=== PATIENT | male | born 1935 | race Caucasian/White ===

== ENCOUNTER 2016-10-31 05:35 | Outpatient (CLI) | payer MEDICARE ==
[~2016-10-31] VITALS: Ht 170.2 cm; Wt 72.7 kg
[~2016-10-31 05:35] MED LIST: ALBU8.5H4 IH; ALPR.5T PO; AMLO10TA82 PO; CEFD300C3 PO; CITA40TA11 PO; CITA40TA19 PO; CTLP20T; HYDR-700 PO; LATA2.5D5 OU; LEVO500T69 PO; LISI40TA PO; METO-270 PO; MNTL10T PO; PANT40TA2 PO; PANT40TA3 PO; PRM25T PO; SERT50TA9 PO; SIMV20TA3 PO; SUCR1TAB36 PO; TEMA30CA PO; TIMO1DRO4 OU; TIMO5DRO5 OU; TMSL.4C PO; alprazolam; benicar; claritin; norvasc
== END 2016-10-31 14:54 ==
LOC: PREOP 05:35
PROVIDERS: ATTEND Surgery
DX: Z01.818 Encounter for other preprocedural examination (principal); D50.0 Iron deficiency anemia secondary to blood loss (chronic); Z86.010 Personal history of colon polyps

== ENCOUNTER → 2016-11-01 | Outpatient (CLI) | payer MEDICARE ==
[~2016-11-01] MED LIST changes: +CATHETER FLUSH 10 ML SYR IV PRN; +IOHEXOL 350 MG/ML 100 ML (OMNIPAQUE 350) VIAL IV ONE; +NS 100 ML (IVPB) BAG IV ONE
== END ==
DX: K57.30 Diverticulosis of large intestine without perforation or abscess without bleeding (principal); J90 Pleural effusion, not elsewhere classified; K44.9 Diaphragmatic hernia without obstruction or gangrene; K42.9 Umbilical hernia without obstruction or gangrene; Z86.39 Personal history of other endocrine, nutritional and metabolic disease; Z86.010 Personal history of colon polyps

== ENCOUNTER 2016-11-05 09:57 | Day surgery (SDC) | payer MEDICARE ==
[~2016-11-05] VITALS: Ht 170.2 cm; Wt 72.7 kg
[~2016-11-05 09:57] MED LIST changes: -CATHETER FLUSH 10 ML SYR IV PRN; -IOHEXOL 350 MG/ML 100 ML (OMNIPAQUE 350) VIAL IV ONE; -NS 100 ML (IVPB) BAG IV ONE
[2016-11-05] MEDS ORDERED: NALOXONE 0.4 MG/ML 1 ML (NARCAN) VIAL IVP PRN (10:15)
[2016-11-05] MEDS ORDERED: NS IV 500 ML 500 ML IV SCH (10:15)
[2016-11-05] MEDS ORDERED: NS IV 500 ML 500 ML ONE (10:15)
[2016-11-05] MEDS ORDERED: FLUMAZENIL (ROMAZICON) 0.1 MG/ML 5 ML VIAL INJ PRN (10:15)
[2016-11-05 10:43] VITALS: BP 118/77
[2016-11-05] MEDS ORDERED: MIDAZOLAM 2 MG/2 ML (VERSED) VIAL ONE ×3 (12:00)
[2016-11-05] MEDS ORDERED: fentaNYL INJECTION 100 MCG/2 ML AMP ONE (12:00)
[2016-11-05] MEDS: fentaNYL INJECTION 100 MCG/2 ML AMP IVP PRN ×2 (12:15→12:18)
[2016-11-05] MEDS: MIDAZOLAM 2 MG/2 ML (VERSED) VIAL IVP PRN ×2 (12:16→12:19)
--- NOTE | 2016-11-05 12:35 | Conscious Sedation/ASA ---
Conscious Sedation Pre-Proced Time Reviewed: 11:45 ASA Class: 2 Airway Mallampati Classification: ([place] appropriate class) I. II. III, IV Lungs Heart ASA score ASA 1: a normal healthy patient ASA 2: a patient with a mild systemic disease (mid diabetes, controlled hypertension, obesity ASA 3: a patient with a severe systemic disease that limits activity (angina , COPD, prior Myocardial infarction) ASA 4: a patient with an incapacitating disease that is a constant threat to life (CHF, renal failure) ASA 5: a moribund patient not expected to survive 24 hrs. (ruptured aneurysm) ASA 6: a declared brain patient whose organs are being harvested. For emergent operations, add the letter E after the classification Grade 1 Sedation Plan: Discussed options with patient/fam Note The patient is an appropriate candidate to undergo the planned procedure, sedation, and anesthesia. The patient immediately re-assessed prior to indication. MARCOS MUNOZ MD Nov 05, 2016 12:35 pm
--- NOTE | 2016-11-05 12:35 | Endoscopy Procedure Report ---
Endoscopy Report Date: Nov 05, 2016 Preoperative Diagnosis: chronic GI blood loss. Personal history of polyps Study Performed: Colonoscopy Procedure Instrument: Colonoscope Endo Procedure/Findings Findings 1.: Polyp, Diverticulosis Recommendations: Recommendations: 1.: Colonoscopy in 1 year Copy Copies To 1: IRENE BEATTY MD, XAVIER M MD Nov 05, 2016 12:35 pm
--- NOTE | 2016-11-05 12:36 | Discharge Inst-Simple/Standard ---
Discharge Inst-Standard Discharge Medications New, Converted or Re-Newed RX: Other Patient Instructions/Follow Up Plan of Care/Instructions/FU: follow-up with his primary to have hemoglobin checked in 2 weeks. Repeat colonoscopy in one year Activity as Tolerated: Yes Discharge Diet: No Restrictions MARCOS MUNOZ MD Nov 05, 2016 12:36 pm
[2016-11-05 12:55] VITALS: BP 117/64
[2016-11-05 13:25] VITALS: BP 125/77
[2016-11-05 13:30] VITALS: BP 125/77
--- OUTSIDE RECORDS SUMMARY | 2016-11-05 23:03 | XMS REPORT | Continuity of Care Document ---
Author Author [facility] Organization [facility] Address Unknown Phone Unavailable Allergies Active Description Code Type Severity Reaction Onset Reported/Identified Relationship to Patient Clinical Status Yes amlodipine [id number] Drug Allergy Mild tongue swelling 06/30/2009 Yes benazepril [id number] Drug Allergy Mild tongue swelling 06/30/2009 Yes benazepril [id number] Drug Allergy Mild N/A 10/28/2016 Yes amlodipine [id number] Drug Allergy Moderate TONGUE SWELLING 10/31/2016 Medications Problems Date Dx Coded Attending Type Code Diagnosis Diagnosed By 05/25/2013 ALEXANDER ERNANDEZ, MARCOS Culp Ot 562.10 DIVERTICULOSIS COLON (W/O MENT OF HEMORR 05/25/2013 MARCOS MUNOZ MD Ot 792.1 ABN FIND-STOOL CONTENTS 01/04/2016 MARCOS MUNOZ MD Ot K21.9 GASTRO-ESOPHAGEAL REFLUX DISEASE WITHOUT 01/04/2016 MARCOS MUNOZ MD Ot K92.0 HEMATEMESIS 01/04/2016 MARCOS MUNOZ MD Ot R19.5 OTHER FECAL ABNORMALITIES 01/04/2016 MARCOS MUNOZ MD Ot Z01.818 ENCOUNTER FOR OTHER PREPROCEDURAL EXAMIN 01/05/2016 MARCOS MUNOZ MD Ot K25.9 GASTRIC ULCER, UNSP ACUTE OR CHRONIC, 01/05/2016 MARCOS MUNOZ MD Ot K26.7 CHRONIC 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 01/05/2016 MARCOS MUNOZ MD Ot K44.9 DIAPHRAGMATIC HERNIA WITHOUT OBSTRUCTION 01/05/2016 MARCOS MUNOZ MD Ot K57.30 DVRTCLOS OF LG INT W/O PERFORATION OR AB 01/05/2016 MARCOS MUNOZ MD Ot K63.5 POLYP OF COLON 01/05/2016 MARCOS UMNOZ MD Ot K92.0 HEMATEMESIS 01/20/2016 MARCOS MUNOZ MD Ot K25.9 GASTRIC ULCER, UNSP ACUTE OR CHRONIC, 01/20/2016 ALEXANDER ERNANDEZ, MARCOS Culp Ot K26.7 CHRONIC 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 01/20/2016 ALEXANDER ERNANDEZ, MARCOS Culp Ot K44.9 DIAPHRAGMATIC HERNIA WITHOUT OBSTRUCTION 01/20/2016 ALEXANDER ERNANDEZ, MARCOS Culp Ot K57.30 DVRTCLOS OF LG INT W/O PERFORATION OR AB 01/20/2016 ALEXANDER ERNANDEZ, MARCOS Culp Ot K63.5 POLYP OF COLON 01/20/2016 ALEXANDER ERNANDEZ, MARCOS Culp Ot K92.0 HEMATEMESIS 01/27/2016 BARTOLO HUFF [employer]C PAD [employer]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 Ot D64.9 ANEMIA, UNSPECIFIED 02/01/2016 BARTOLO HUFF 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 Ot D64.9 ANEMIA, UNSPECIFIED 02/08/2016 Ot 786.50 CHEST PAIN NOS 02/08/2016 JACI ERNANDEZ, IRENE Downing Ot 285.9 ANEMIA NOS 02/08/2016 ALEXANDER ERNANDEZ, MARCOS Culp Ot V72.84 EXAM PRE-OPERATIVE NOS 02/08/2016 BARTOLO HUFF 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 Ot D64.9 ANEMIA, UNSPECIFIED 02/25/2016 Ot 786.50 CHEST PAIN NOS 02/25/2016 JACI ERNANDEZ, IRENE Downing Ot 285.9 ANEMIA NOS 02/25/2016 ALEXANDER ERNANDEZ, MARCOS M Ot V72.84 EXAM PRE-OPERATIVE NOS 02/25/2016 BARTOLO [employer]FF 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 Ot D64.9 ANEMIA, UNSPECIFIED 02/25/2016 JACI ERNANDEZ, IRENE Downing Ot E87.1 HYPO-OSMOLALITY AND HYPONATREMIA 02/27/2016 FELISA ERNANDEZ, HOLLEY Downing Ot E87.1 HYPO-OSMOLALITY AND HYPONATREMIA 02/27/2016 FELISA ERNANDEZ, HOLLEY Downing Ot F32.9 MAJOR DEPRESSIVE DISORDER, SINGLE EPISOD 02/27/2016 HOLLEY ROBERTO MD Ot F41.9 ANXIETY DISORDER, UNSPECIFIED 02/27/2016 HOLLEY ROBERTO MD Ot I10 ESSENTIAL (PRIMARY) HYPERTENSION 02/27/2016 HOLLEY ROBERTO MD Ot J18.9 PNEUMONIA, UNSPECIFIED ORGANISM 02/27/2016 HOLLEY ROBERTO MD Ot K21.9 GASTRO-ESOPHAGEAL REFLUX DISEASE WITHOUT 02/27/2016 FELISA ERNANDEZ, HOLLEY Downing Ot 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 02/27/2016 FELISA ERNANDEZ, HOLLEY Downing Ot Z87.891 PERSONAL HISTORY OF NICOTINE DEPENDENCE 03/01/2016 JACI ERNANDEZ, IRENE Downing Ot E87.1 HYPO-OSMOLALITY AND HYPONATREMIA 03/08/2016 JACI ERNANDEZ, IRENE Downing Ot E87.1 HYPO-OSMOLALITY AND HYPONATREMIA 05/08/2016 Ot 786.50 CHEST PAIN NOS 05/08/2016 JACI ERNANDEZ, IRENE Downing Ot 285.9 ANEMIA NOS 05/08/2016 ALEXANDER ERNANDEZ, MARCOS M Ot V72.84 EXAM PRE-OPERATIVE NOS 05/08/2016 BARTOLO HUFF N DISC PAD KN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 Ot D64.9 ANEMIA, UNSPECIFIED 05/08/2016 JACI ERNANDEZ, IRENE Downing Ot E87.1 HYPO-OSMOLALITY AND HYPONATREMIA 05/09/2016 Ot 786.50 CHEST PAIN NOS 05/09/2016 JACI ERNANDEZ, IRENE Downing Ot 285.9 ANEMIA NOS 05/09/2016 ALEXANDER ERNANDEZ, MARCOS M Ot V72.84 EXAM PRE-OPERATIVE NOS 05/09/2016 BARTOLO HUFF N DISC PAD KN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 Ot D64.9 ANEMIA, UNSPECIFIED 05/09/2016 JACI ERNANDEZ, IRENE Downing Ot E87.1 HYPO-OSMOLALITY AND HYPONATREMIA 05/09/2016 GERMANIA VIGIL MD Ot I10 ESSENTIAL (PRIMARY) HYPERTENSION 05/09/2016 GERMANIA VIGIL MD Ot S00.83XA CONTUSION OF OTHER PART OF HEAD, INITIAL 05/09/2016 GERMANIA VIGIL MD Ot S09.90XA UNSPECIFIED INJURY OF HEAD, INITIAL ENCO 05/09/2016 GERMANIA VIGIL MD Ot S51.011A LACERATION WITHOUT FOREIGN BODY OF RIGHT 05/09/2016 GERMANIA VIGIL MD Ot S51.812A LACERATION WITHOUT FOREIGN BODY OF LEFT 05/09/2016 GERMANIA VIGIL MD Ot W01.0XXA FALL SAME LEV FROM SLIP/TRIP W/O STRIKE 05/09/2016 GERMANIA VIGIL MD Ot Y92.012 BATHROOM OF SINGLE-FAMILY (PRIVATE ) HOUS 05/09/2016 GERMANIA VIGIL MD Ot Y99.8 OTHER EXTERNAL CAUSE STATUS 05/09/2016 GERMANIA VIGIL MD Ot 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 05/09/2016 GERMANIA VIGIL MD Ot Z87.891 PERSONAL HISTORY OF NICOTINE DEPENDENCE 05/09/2016 GERMANIA VIGIL MD Ot I10 ESSENTIAL (PRIMARY) HYPERTENSION 05/09/2016 GERMANIA VIGIL MD Ot S00.83XA CONTUSION OF OTHER PART OF HEAD, INITIAL 05/09/2016 GERMANIA VIGIL MD Ot S09.90XA UNSPECIFIED INJURY OF HEAD, INITIAL ENCO 05/09/2016 GERMANIA VIGIL MD Ot S51.011A LACERATION WITHOUT FOREIGN BODY OF RIGHT 05/09/2016 GERMANIA VIGIL MD Ot S51.812A LACERATION WITHOUT FOREIGN BODY OF LEFT 05/09/2016 GERMANIA VIGIL MD Ot W01.0XXA FALL SAME LEV FROM SLIP/TRIP W/O STRIKE 05/09/2016 GERMANIA VIGIL MD Ot Y92.012 BATHROOM OF SINGLE-FAMILY (PRIVATE ) HOUS 05/09/2016 GERMANIA VIGIL MD Ot Y99.8 OTHER EXTERNAL CAUSE STATUS 05/09/2016 GERMANIA VIGIL MD Ot Z79.899 OTHER [facility] (CURRENT) DRUG THERAPY 05/09/2016 GERMANIA VIGIL MD Ot Z87.891 PERSONAL HISTORY OF NICOTINE DEPENDENCE 10/29/2016 MARLEEN CARBONE DO Ot D50.0 IRON DEFICIENCY ANEMIA SECONDARY TO BLOO 10/29/2016 [employer] MARLEEN Ot E78.00 PURE HYPERCHOLESTEROLEMIA, UNSPECIFIED 10/29/2016 [employer] MARLEEN Ot E78.5 HYPERLIPIDEMIA, UNSPECIFIED 10/29/2016 [employer] MARLEEN Ot E87.2 ACIDOSIS 10/29/2016 [employer] MARLEEN Ot F41.9 ANXIETY DISORDER, UNSPECIFIED 10/29/2016 [employer] FREEMAN MARLEEN Ot I10 ESSENTIAL (PRIMARY) HYPERTENSION 10/29/2016 MARLEEN CARBONE DO Ot I25.9 CHRONIC ISCHEMIC HEART DISEASE, UNSPECIF 10/29/2016 ROLAND CARBONE DOI Ot I49.3 VENTRICULAR PREMATURE DEPOLARIZATION 10/29/2016 ROLAND CARBONE DOI Ot K21.9 GASTRO-ESOPHAGEAL REFLUX DISEASE WITHOUT 10/29/2016 ROLAND CARBONE DOI Ot K26.7 CHRONIC 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 10/29/2016 RAF FREEMANMARLEEN Ot K44.9 DIAPHRAGMATIC HERNIA WITHOUT OBSTRUCTION 10/29/2016 MARLEEN CARBONE DO Ot M19.90 UNSPECIFIED OSTEOARTHRITIS, UNSPECIFIED 10/29/2016 CARBONEMARLEEN GOFF DO Ot N40.0 BENIGN PROSTATIC HYPERPLASIA WITHOUT LOW 10/29/2016 MARLEEN CARBONE DO Ot R01.1 CARDIAC MURMUR, UNSPECIFIED 10/29/2016 MARLEEN CARBONE DO Ot Z87.891 PERSONAL HISTORY OF NICOTINE DEPENDENCE 11/02/2016 ALEXANDER ERNANDEZ, MARCOS Culp Ot J90 PLEURAL EFFUSION, NOT ELSEWHERE CLASSIFI 11/02/2016 ALEXANDER ERNANDEZ, MARCOS Culp Ot K42.9 UMBILICAL HERNIA WITHOUT OBSTRUCTION OR 11/02/2016 MARCOS MUNOZ MD, Ot K44.9 DIAPHRAGMATIC HERNIA WITHOUT OBSTRUCTION 11/02/2016 ALEXANDER ERNANDEZ, MARCOS Culp Ot K57.30 DVRTCLOS OF LG INT W/O PERFORATION OR AB 11/02/2016 ALEXANDER ERNANDEZ, MARCOS Culp Ot Z86.010 PERSONAL HISTORY OF COLONIC POLYPS 11/02/2016 MARCOS MUNOZ MD, Ot Z86.39 PERSONAL HISTORY OF ENDO, NUTRITIONAL AN Procedures Code Description Performed By Performed On [id number] EXCISION OF STOMACH, PYLORUS, ENDO, DIAG 10/29/2016 Results Test Result Range RED CELLS LEUKO REDUCED AS1 - 01/03/16 15:34 RED CELLS LEUKO REDUCED AS1 TRANSFUSED 1941 [facility] Blood type T Indirect antibody screen panel - 01/03/16 15:34 ABO+Rh group AP NR Transfusion band number [id number] [facility] Blood group antibody screen NEGATIVE [facility] Complete blood count (CBC) with automated white blood cell (WBC) differential - 02/25/16 12:45 Blood leukocytes automated count (number/volume) 16.0 10*3/ uL 4.3-11.0 Blood erythrocytes automated count (number/volume) 3.29 10*6 /uL 4.35-5.85 Venous blood hemoglobin measurement (mass/volume) 10.3 g/dL 13.3-17.7 Blood hematocrit (volume fraction) 30 % 40-54 Automated erythrocyte mean corpuscular volume 92 [foz_us] 80-99 Automated erythrocyte mean corpuscular hemoglobin (mass per erythrocyte) 31 pg 25-34 Automated erythrocyte mean corpuscular hemoglobin concentration measurement ( mass/volume) 34 g/dL 32-36 Automated erythrocyte distribution width ratio 14.0 % 10.0-14.5 Automated blood platelet count (count/volume) 213 10*3/uL 130-400 Automated blood platelet mean volume measurement 11.7 [foz_ us] 7.4-10.4 Automated blood neutrophils/100 leukocytes 93 % 42-75 Automated blood lymphocytes/100 leukocytes 3 % 12-44 Blood monocytes/100 leukocytes 4 % 0-12 Automated blood eosinophils/100 leukocytes 0 % 0-10 Automated blood basophils/100 leukocytes 0 % 0-10 Blood neutrophils automated count (number/volume) 14.8 10*3 1.8-7.8 Blood lymphocytes automated count (number/volume) 0.5 10*3 1.0-4.0 Blood monocytes automated count (number/volume) 0.7 10*3 0.0-1.0 Automated eosinophil count 0.0 10*3/uL 0.0-0.3 Automated blood basophil count (count/volume) 0.0 10*3/uL 0.0-0.1 Comprehensive metabolic panel - 02/25/16 12:45 Serum or plasma sodium measurement (moles/volume) 128 mmol/ L 135-145 Serum or plasma potassium measurement (moles/volume) 4.3 mmol/L 3.6-5.0 Serum or plasma chloride measurement (moles/volume) 102 mmol /L 98-107 Carbon dioxide 19 mmol/L 21-32 Serum or plasma anion gap determination (moles/volume) 7 mmol/L 5-14 Serum or plasma urea nitrogen measurement (mass/volume) 25 mg/dL 7-18 Serum or plasma creatinine measurement (mass/volume) 1.20 mg /dL 0.60-1.30 Serum or plasma urea nitrogen/creatinine mass ratio 21 NRG Serum or plasma creatinine measurement with calculation of estimated glomerular filtration rate 58 NRG Serum or plasma glucose measurement (mass/volume) 90 mg/dL 70-105 Serum or plasma calcium measurement (mass/volume) 8.6 mg/dL 8.5-10.1 Serum or plasma total bilirubin measurement (mass/volume) 0.5 mg/dL 0.1-1.0 Serum or plasma alkaline phosphatase measurement (enzymatic activity/volume) 81 U/L 40-136 Serum or plasma aspartate aminotransferase measurement (enzymatic activity/ volume) 35 U/L 5-34 Serum or plasma alanine aminotransferase measurement (enzymatic activity/volume ) 41 U/L 0-55 Serum or plasma protein measurement (mass/volume) 6.1 g/dL 6.4-8.2 Serum or plasma albumin measurement (mass/volume) 3.5 g/dL 3.2-4.5 Blood manual differential performed detection - 02/25/16 12:45 Blood monocytes/100 leukocytes 5 % NRG Manual blood segmented neutrophils/100 leukocytes 87 % NRG Blood band neutrophils/100 leukocytes 6 % NRG Manual blood lymphocytes/100 leukocytes 2 % NRG Manual eosinophils/100 leukocytes in nose 0 % NRG Manual blood basophils/100 leukocytes 0 % NRG Blood erythrocyte morphology finding identification NORMAL NRG Serum or plasma troponin i.cardiac measurement (mass/volume) - 02/25/16 12:45 Serum or plasma troponin i.cardiac measurement (mass/volume) < ng/mL <0.30 Blood lactic acid measurement (moles/volume) - 02/25/16 14:10 Blood lactic acid measurement (moles/volume) 1.9 mmol/L 0.5-2.0 Bacterial blood culture - 02/25/16 14:10 Bacterial blood culture NG NRG Bacterial blood culture - 02/25/16 14:24 Bacterial blood culture NG NRG Complete blood count (CBC) with automated white blood cell (WBC) differential - 02/26/16 04:30 Blood leukocytes automated count (number/volume) 16.3 10*3/ uL 4.3-11.0 Blood erythrocytes automated count (number/volume) 3.12 10*6 /uL 4.35-5.85 Venous blood hemoglobin measurement (mass/volume) 9.7 g/dL 13.3-17.7 Blood hematocrit (volume fraction) 29 % 40-54 Automated erythrocyte mean corpuscular volume 93 [foz_us] 80-99 Automated erythrocyte mean corpuscular hemoglobin (mass per erythrocyte) 31 pg 25-34 Automated erythrocyte mean corpuscular hemoglobin concentration measurement ( mass/volume) 33 g/dL 32-36 Automated erythrocyte distribution width ratio 14.5 % 10.0-14.5 Automated blood platelet count (count/volume) 189 10*3/uL 130-400 Automated blood platelet mean volume measurement 11.9 [foz_ us] 7.4-10.4 Automated blood neutrophils/100 leukocytes 91 % 42-75 Automated blood lymphocytes/100 leukocytes 4 % 12-44 Blood monocytes/100 leukocytes 5 % 0-12 Automated blood eosinophils/100 leukocytes 0 % 0-10 Automated blood basophils/100 leukocytes 0 % 0-10 Blood neutrophils automated count (number/volume) 14.8 10*3 1.8-7.8 Blood lymphocytes automated count (number/volume) 0.7 10*3 1.0-4.0 Blood monocytes automated count (number/volume) 0.8 10*3 0.0-1.0 Automated eosinophil count 0.0 10*3/uL 0.0-0.3 Automated blood basophil count (count/volume) 0.0 10*3/uL 0.0-0.1 Complete blood count (CBC) with automated white blood cell (WBC) differential - 02/27/16 05:00 Blood leukocytes automated count (number/volume) 8.5 10*3/ uL 4.3-11.0 Blood erythrocytes automated count (number/volume) 2.99 10*6 /uL 4.35-5.85 Venous blood hemoglobin measurement (mass/volume) 9.2 g/dL 13.3-17.7 Blood hematocrit (volume fraction) 28 % 40-54 Automated erythrocyte mean corpuscular volume 94 [foz_us] 80-99 Automated erythrocyte mean corpuscular hemoglobin (mass per erythrocyte) 31 pg 25-34 Automated erythrocyte mean corpuscular hemoglobin concentration measurement ( mass/volume) 33 g/dL 32-36 Automated erythrocyte distribution width ratio 14.8 % 10.0-14.5 Automated blood platelet count (count/volume) 171 10*3/uL 130-400 Automated blood platelet mean volume measurement 11.7 [foz_ us] 7.4-10.4 Automated blood neutrophils/100 leukocytes 88 % 42-75 Automated blood lymphocytes/100 leukocytes 6 % 12-44 Blood monocytes/100 leukocytes 5 % 0-12 Automated blood eosinophils/100 leukocytes 1 % 0-10 Automated blood basophils/100 leukocytes 0 % 0-10 Blood neutrophils automated count (number/volume) 7.5 10*3 1.8-7.8 Blood lymphocytes automated count (number/volume) 0.5 10*3 1.0-4.0 Blood monocytes automated count (number/volume) 0.4 10*3 0.0-1.0 Automated eosinophil count 0.1 10*3/uL 0.0-0.3 Automated blood basophil count (count/volume) 0.0 10*3/uL 0.0-0.1 Whole blood basic metabolic panel - 02/27/16 05:00 Serum or plasma sodium measurement (moles/volume) 135 mmol/ L 135-145 Serum or plasma potassium measurement (moles/volume) 4.3 mmol/L 3.6-5.0 Serum or plasma chloride measurement (moles/volume) 110 mmol /L 98-107 Carbon dioxide 19 mmol/L 21-32 Serum or plasma anion gap determination (moles/volume) 6 mmol/L 5-14 Serum or plasma urea nitrogen measurement (mass/volume) 15 mg/dL 7-18 Serum or plasma creatinine measurement (mass/volume) 0.95 mg /dL 0.60-1.30 Serum or plasma urea nitrogen/creatinine mass ratio 16 NRG Serum or plasma creatinine measurement with calculation of estimated glomerular filtration rate > NRG Serum or plasma glucose measurement (mass/volume) 106 mg/dL 70-105 Serum or plasma calcium measurement (mass/volume) 8.6 mg/dL 8.5-10.1 Complete blood count (CBC) with automated white blood cell (WBC) differential - 10/28/16 09:49 Blood leukocytes automated count (number/volume) 10.0 10*3/ uL 4.3-11.0 Blood erythrocytes automated count (number/volume) 1.85 10*6 /uL 4.35-5.85 Venous blood hemoglobin measurement (mass/volume) 4.6 g/dL 13.3-17.7 Blood hematocrit (volume fraction) 15 % 40-54 Automated erythrocyte mean corpuscular volume 83 [foz_us] 80-99 Automated erythrocyte mean corpuscular hemoglobin (mass per erythrocyte) 25 pg 25-34 Automated erythrocyte mean corpuscular hemoglobin concentration measurement ( mass/volume) 30 g/dL 32-36 Automated erythrocyte distribution width ratio 19.0 % 10.0-14.5 Automated blood platelet count (count/volume) 230 10*3/uL 130-400 Automated blood platelet mean volume measurement 11.6 [foz_ us] 7.4-10.4 Automated blood neutrophils/100 leukocytes 85 % 42-75 Automated blood lymphocytes/100 leukocytes 8 % 12-44 Blood monocytes/100 leukocytes 7 % 0-12 Automated blood eosinophils/100 leukocytes 0 % 0-10 Automated blood basophils/100 leukocytes 0 % 0-10 Blood neutrophils automated count (number/volume) 8.4 10*3 1.8-7.8 Blood lymphocytes automated count (number/volume) 0.8 10*3 1.0-4.0 Blood monocytes automated count (number/volume) 0.7 10*3 0.0-1.0 Automated eosinophil count 0.0 10*3/uL 0.0-0.3 Automated blood basophil count (count/volume) 0.0 10*3/uL 0.0-0.1 Comprehensive metabolic panel - 10/28/16 09:49 Serum or plasma sodium measurement (moles/volume) 138 mmol/ L 135-145 Serum or plasma potassium measurement (moles/volume) 3.6 mmol/L 3.6-5.0 Serum or plasma chloride measurement (moles/volume) 110 mmol /L 98-107 Carbon dioxide 16 mmol/L 21-32 Serum or plasma anion gap determination (moles/volume) 12 mmol/L 5-14 Serum or plasma urea nitrogen measurement (mass/volume) 37 mg/dL 7-18 Serum or plasma creatinine measurement (mass/volume) 1.23 mg /dL 0.60-1.30 Serum or plasma urea nitrogen/creatinine mass ratio 30 0-20 Serum or plasma creatinine measurement with calculation of estimated glomerular filtration rate 56 NRG Serum or plasma glucose measurement (mass/volume) 155 mg/dL 70-105 Serum or plasma calcium measurement (mass/volume) 8.3 mg/dL 8.5-10.1 Serum or plasma total bilirubin measurement (mass/volume) 0.2 mg/dL 0.1-1.0 Serum or plasma alkaline phosphatase measurement (enzymatic activity/volume) 75 U/L 40-136 Serum or plasma aspartate aminotransferase measurement (enzymatic activity/ volume) 34 U/L 5-34 Serum or plasma alanine aminotransferase measurement (enzymatic activity/volume ) 17 U/L 0-55 Serum or plasma protein measurement (mass/volume) 5.9 g/dL 6.4-8.2 Serum or plasma albumin measurement (mass/volume) 3.3 g/dL 3.2-4.5 Serum or plasma troponin i.cardiac measurement (mass/volume) - 10/28/16 09:49 Serum or plasma troponin i.cardiac measurement (mass/volume) 2.06 ng/mL <0.30 Lipase - 10/28/16 09:49 Lipase 21 U/L 8-78 RED CELLS LEUKO REDUCED AS1 - 10/28/16 10:00 RED CELLS LEUKO REDUCED AS1 TRANSFUSED 1204 NRG Blood type T Indirect antibody screen panel - 10/28/16 10:00 ABO+Rh group AP NRG Transfusion band number [id number] NRG Blood group antibody screen NEGATIVE NRG PT panel in platelet poor plasma by coagulation assay - 10/28/16 10:10 Prothrombin time (PT) in platelet poor plasma by coagulation assay 16.0 s 12.2-14.7 INR in platelet poor plasma or blood by coagulation assay 1.3 0.8-1.4 Complete urinalysis with reflex to culture - 10/28/16 13:14 Urine color determination YELLOW NRG Urine clarity determination CLEAR NRG Urine pH measurement by test strip 6 5- 9 Specific gravity of urine by test strip 1.015 1.016-1.022 Urine protein assay by test strip, semi-quantitative 1+ NEGATIVE Urine glucose detection by automated test strip NEGATIVE NEGATIVE Erythrocytes detection in urine sediment by light microscopy NEGATIVE NEGATIVE Urine ketones detection by automated test strip NEGATIVE NEGATIVE Urine nitrite detection by test strip NEGATIVE NEGATIVE Urine total bilirubin detection by test strip NEGATIVE NEGATIVE Urine urobilinogen measurement by automated test strip (mass/volume) NORMAL NORMAL Urine leukocyte esterase detection by dipstick NEGATIVE NEGATIVE Automated urine sediment erythrocyte count by microscopy (number/high power field) NONE NRG Automated urine sediment leukocyte count by microscopy (number/high power field ) NONE NRG Bacteria detection in urine sediment by light microscopy NEGATIVE NRG Squamous epithelial cells detection in urine sediment by light microscopy RARE NRG Crystals detection in urine sediment by light microscopy NONE NRG Casts detection in urine sediment by light microscopy NONE NRG Mucus detection in urine sediment by light microscopy NEGATIVE NRG Complete urinalysis with reflex to culture NO NRG Complete blood count (CBC) with automated white blood cell (WBC) differential - 10/28/16 15:51 Blood leukocytes automated count (number/volume) 10.1 10*3/ uL 4.3-11.0 Blood erythrocytes automated count (number/volume) 2.70 10*6 /uL 4.35-5.85 Venous blood hemoglobin measurement (mass/volume) 7.3 g/dL 13.3-17.7 Blood hematocrit (volume fraction) 23 % 40-54 Automated erythrocyte mean corpuscular volume 86 [foz_us] 80-99 Automated erythrocyte mean corpuscular hemoglobin (mass per erythrocyte) 27 pg 25-34 Automated erythrocyte mean corpuscular hemoglobin concentration measurement ( mass/volume) 32 g/dL 32-36 Automated erythrocyte distribution width ratio 17.6 % 10.0-14.5 Automated blood platelet count (count/volume) 223 10*3/uL 130-400 Automated blood platelet mean volume measurement 12.4 [foz_ us] 7.4-10.4 Automated blood neutrophils/100 leukocytes 74 % 42-75 Automated blood lymphocytes/100 leukocytes 14 % 12-44 Blood monocytes/100 leukocytes 12 % 0-12 Automated blood eosinophils/100 leukocytes 1 % 0-10 Automated blood basophils/100 leukocytes 0 % 0-10 Blood neutrophils automated count (number/volume) 7.4 10*3 1.8-7.8 Blood lymphocytes automated count (number/volume) 1.4 10*3 1.0-4.0 Blood monocytes automated count (number/volume) 1.2 10*3 0.0-1.0 Automated eosinophil count 0.1 10*3/uL 0.0-0.3 Automated blood basophil count (count/volume) 0.0 10*3/uL 0.0-0.1 Serum or plasma troponin i.cardiac measurement (mass/volume) - 10/28/16 15:51 Serum or plasma troponin i.cardiac measurement (mass/volume) 2.79 ng/mL <0.30 Complete blood count (CBC) with automated white blood cell (WBC) differential - 10/29/16 04:02 Blood leukocytes automated count (number/volume) 9.9 10*3/ uL 4.3-11.0 Blood erythrocytes automated count (number/volume) 4.16 10*6 /uL 4.35-5.85 Venous blood hemoglobin measurement (mass/volume) 11.5 g/dL 13.3-17.7 Blood hematocrit (volume fraction) 34 % 40-54 Automated erythrocyte mean corpuscular volume 81 [foz_us] 80-99 Automated erythrocyte mean corpuscular hemoglobin (mass per erythrocyte) 28 pg 25-34 Automated erythrocyte mean corpuscular hemoglobin concentration measurement ( mass/volume) 34 g/dL 32-36 Automated erythrocyte distribution width ratio 16.1 % 10.0-14.5 Automated blood platelet count (count/volume) 200 10*3/uL 130-400 Automated blood platelet mean volume measurement 12.4 [foz_ us] 7.4-10.4 Automated blood neutrophils/100 leukocytes 75 % 42-75 Automated blood lymphocytes/100 leukocytes 12 % 12-44 Blood monocytes/100 leukocytes 12 % 0-12 Automated blood eosinophils/100 leukocytes 1 % 0-10 Automated blood basophils/100 leukocytes 0 % 0-10 Blood neutrophils automated count (number/volume) 7.5 10*3 1.8-7.8 Blood lymphocytes automated count (number/volume) 1.2 10*3 1.0-4.0 Blood monocytes automated count (number/volume) 1.1 10*3 0.0-1.0 Automated eosinophil count 0.1 10*3/uL 0.0-0.3 Automated blood basophil count (count/volume) 0.0 10*3/uL 0.0-0.1 Serum or plasma phosphate measurement (mass/volume) - 10/29/16 04:02 Serum or plasma phosphate measurement (mass/volume) 2.7 mg/ dL 2.3-4.7 Magnesium - 10/29/16 04:02 Magnesium 2.2 mg/dL 1.8-2.4 Comprehensive metabolic panel - 10/29/16 04:02 Serum or plasma sodium measurement (moles/volume) 141 mmol/ L 135-145 Serum or plasma potassium measurement (moles/volume) 4.0 mmol/L 3.6-5.0 Serum or plasma chloride measurement (moles/volume) 115 mmol /L 98-107 Carbon dioxide 16 mmol/L 21-32 Serum or plasma anion gap determination (moles/volume) 10 mmol/L 5-14 Serum or plasma urea nitrogen measurement (mass/volume) 36 mg/dL 7-18 Serum or plasma creatinine measurement (mass/volume) 1.14 mg /dL 0.60-1.30 Serum or plasma urea nitrogen/creatinine mass ratio 32 0-20 Serum or plasma creatinine measurement with calculation of estimated glomerular filtration rate > NRG Serum or plasma glucose measurement (mass/volume) 115 mg/dL 70-105 Serum or plasma calcium measurement (mass/volume) 8.3 mg/dL 8.5-10.1 Serum or plasma total bilirubin measurement (mass/volume) 1.6 mg/dL 0.1-1.0 Serum or plasma alkaline phosphatase measurement (enzymatic activity/volume) 79 U/L 40-136 Serum or plasma aspartate aminotransferase measurement (enzymatic activity/ volume) 40 U/L 5-34 Serum or plasma alanine aminotransferase measurement (enzymatic activity/volume ) 21 U/L 0-55 Serum or plasma protein measurement (mass/volume) 5.8 g/dL 6.4-8.2 Serum or plasma albumin measurement (mass/volume) 3.3 g/dL 3.2-4.5 Encounters ACCT No. Visit Date/Time Discharge Status Pt. Type Provider Facility Loc./Unit Complaint [id number] 10/31/2016 05:35:00 2016 14:54:00 DIS Outpatient MARCOS MUNOZ MD [facility] PREOP HX POLYPS/IRON DEF ANEMIA/GI BLOOD LOSS [id number] 10/28/2016 10:30:00 2016 16:52:00 DIS Outpatient MARLEEN CARBONE DO [facility] ICU ANEMIA, ELEVATED TROPONIN [id number] 05/08/2016 23:20:00 2015 01:01:00 DIS Emergency YARITZA ERNANDEZ, GERMANIA Small [facility] ER FALL,HIT HEAD,INJURED BOTH ARMS [id number] 02/25/2016 13:46:00 2015 17:55:00 DIS Inpatient FELISA ERNANDEZ, HOLLEY Downing [facility] 4TH RLL PNEUMONIA,ANXIETY [id number] 01/05/2016 07:33:00 2015 10:20:00 DIS Outpatient MARCOS MUNOZ MD [facility] [address] BLACK STOOL;GERD [id number] 01/04/2016 06:06:00 2015 15:05:00 DIS Outpatient MARCOS MUNOZ MD [facility] PREOP BLACK TAR STOOLS;GERD [id number] 05/25/2013 06:03:00 2013 09:30:00 DIS Outpatient MARCOS MUNOZ MD [facility] [address] BLOOD IN STOOL [id number] 05/20/2013 07:17:00 2013 23:59:59 CLS Outpatient ALEXANDER ERNANDEZ, MARCOS Culp [facility] PREOP BLOOD IN STOOL [id number] 04/17/2013 12:52:00 2012 23:59:59 CLS Outpatient JACI ERNANDEZ, IRENE Downing [facility] LAB ANEMIA [id number] 11/05/2016 13:15:00 PEN Preadmit ALEXANDER ERNANDEZ, MARCOS Culp [facility] ENDO HX POLYPS/IRON DEF ANEMIA/GI BLOOD LOSS [id number] 11/01/2016 07:51:00 ACT Outpatient ALEXANDER ERNANDEZ, MARCOS Culp [facility] RAD BILAT LOWER ABD PAIN R10.31 [id number] 02/08/2016 08:36:00 ACT Outpatient JACI ERNANDEZ , IRENE Downing [facility] [address] HYPONATREMIA [id number] 01/03/2016 15:03:00 ACT Outpatient BARTOLO HUFF APRN [facility] [address] ANEMIA/HGB 8.2 [id number] 04/24/2011 11:48:00 Document Registration
--- NOTE | 2016-11-06 00:17 | OPERATIVE REPORT ---
DATE OF SERVICE: 11/05/2016 PROCEDURES: 1. Colonoscopy. 2. Snare polypectomy. SURGEON: Marcos Munoz MD. INDICATION FOR PROCEDURE: This gentleman was found to be anemic with a pattern of chronic blood loss from his GI tract. Upper endoscopy revealed nonbleeding lesions. Therefore, it was felt reasonable to perform colonoscopy. This was more relevant due to a previous history of polyps. Informed consent was obtained after reviewing the procedure in detail. DESCRIPTION OF PROCEDURE: He was placed in left lateral decubitus position and his vital signs were monitored. Conscious sedation was achieved using Versed and fentanyl. Digital rectal examination was unremarkable. The colonoscope was then introduced into the rectum and advanced all the way up to the cecum. The scope was then withdrawn slowly and the mucosa examined in a systematic fashion. FINDINGS: 1. A 4 mm polyp at the proximal sigmoid colon, that was snared and retrieved. 2. Quite extensive diverticulosis. He tolerated the procedure well and was taken back to the nursing area in a stable condition. IMPRESSION: 1. Chronic gastrointestinal blood loss with anemia, currently stable. 2. Sigmoid colon polyp excised. PLAN: Recommended repeating in one year. Job ID: [id number] DocumentID: [id number] Dictated Date: 11/05/2016 12:34:30 Public Address Systems Mechanic Date: 11/05/2016 23:22:35 Dictated By: MARCOS MUNOZ MD [facility]
== END 2016-11-05 13:32 | disposition home or self-care (01) ==
LOC: ENDO 09:57
PROVIDERS: ATTEND Surgery
DX: K63.5 Polyp of colon (principal); D50.0 Iron deficiency anemia secondary to blood loss (chronic); K57.30 Diverticulosis of large intestine without perforation or abscess without bleeding; Z87.891 Personal history of nicotine dependence

== ENCOUNTER 2016-11-07 07:03 | Day surgery (SDC) | payer MEDICARE ==
[~2016-11-07] VITALS: Ht 170.2 cm; Wt 72.7 kg
--- OUTSIDE RECORDS SUMMARY | 2016-11-07 07:07 | XMS REPORT | Continuity of Care Document ---
Author Author [facility] Organization [facility] Address Unknown Phone Unavailable Allergies Active Description Code Type Severity Reaction Onset Reported/Identified Relationship to Patient Clinical Status Yes amlodipine [id number] Drug Allergy Mild tongue swelling 06/30/2009 Yes benazepril [id number] Drug Allergy Mild tongue swelling 06/30/2009 Yes benazepril [id number] Drug Allergy Mild N/A 10/28/2016 Yes amlodipine [id number] Drug Allergy Moderate TONGUE SWELLING 10/31/2016 Medications [...] Ot K63.5 POLYP OF COLON 01/05/2016 MARCOS MUNOZ MD Ot K92.0 HEMATEMESIS 01/20/2016 MARCOS MUNOZ [...] Culp Ot K92.0 HEMATEMESIS 01/27/2016 BARTOLO HUFF UI ARCHITECT Ot D64.9 ANEMIA, UNSPECIFIED 02/01/2016 BARTOLO HUFF UI ARCHITECT Ot D64.9 ANEMIA, UNSPECIFIED 02/08/2016 Ot 786.50 CHEST PAIN NOS 02/08/2016 JACI ERNANDEZ, IRENE Downing Ot 285.9 ANEMIA NOS 02/08/2016 ALEXANDER ERNANDEZ, MARCOS Culp Ot V72.84 EXAM PRE-OPERATIVE NOS 02/08/2016 BARTOLO HUFF UI ARCHITECT Ot D64.9 ANEMIA, UNSPECIFIED 02/25/2016 Ot 786.50 CHEST PAIN NOS 02/25/2016 JACI ERNANDEZ, IRENE Downing Ot 285.9 ANEMIA NOS 02/25/2016 ALEXANDER ERNANDEZ, MARCOS M Ot V72.84 EXAM PRE-OPERATIVE NOS 02/25/2016 BARTOLO HUFF UI ARCHITECT Ot D64.9 ANEMIA, UNSPECIFIED 02/25/2016 JACI ERNANDEZ, [...] EXAM PRE-OPERATIVE NOS 05/08/2016 BARTOLO HUFF N UI ARCHITECT Ot D64.9 ANEMIA, UNSPECIFIED 05/08/2016 JACI ERNANDEZ, IRENE Downing Ot E87.1 HYPO-OSMOLALITY AND HYPONATREMIA 05/09/2016 Ot 786.50 CHEST PAIN NOS 05/09/2016 JACI ERNANDEZ, IRENE Downing Ot 285.9 ANEMIA NOS 05/09/2016 ALEXANDER ERNANDEZ, MARCOS M Ot V72.84 EXAM PRE-OPERATIVE NOS 05/09/2016 BARTOLO HUFF N UI ARCHITECT Ot D64.9 ANEMIA, UNSPECIFIED 05/09/2016 JACI ERNANDEZ, IRNEE Downing Ot E87.1 HYPO-OSMOLALITY AND HYPONATREMIA 05/09/2016 [...] 05/09/2016 GERMANIA VIGIL MD Ot 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 Blood type T Indirect antibody screen panel - 01/03/16 15:34 ABO+Rh group AP NR Transfusion band number [id number] [facility] Blood group antibody screen NEGATIVE [facility] Complete blood count (CBC) with automated [...] ABO+Rh group AP NRG Transfusion band number [id number] NR[facility] Blood group antibody screen NEGATIVE [facility] [...] Status Pt. Type Provider Facility Loc./Unit Complaint [id number] 10/31/2016 05:35:00 2016 14:54:00 DIS Outpatient MARCOS MUNOZ MD [facility] PREOP HX POLYPS/IRON DEF ANEMIA/GI BLOOD LOSS [id number] 10/28/2016 10:30:00 2016 16:52:00 DIS Outpatient MARLEEN CARBONE DO [facility] ICU ANEMIA, ELEVATED TROPONIN [id number] 05/08/2016 23:20:00 2015 01:01:00 DIS Emergency YARITZA ERNANDEZ, GERMANIA Small [facility] ER FALL,HIT HEAD,INJURED BOTH ARMS [id number] 02/25/2016 13:46:00 2015 17:55:00 DIS Inpatient FELISA ERNANDEZ, HOLLEY Downing [facility] 4TH RLL PNEUMONIA,ANXIETY [id number] 01/05/2016 07:33:00 2015 10:20:00 DIS Outpatient MARCOS MUNOZ MD [facility] BLACK STOOL;GERD [id number] 01/04/2016 06:06:00 2015 15:05:00 DIS Outpatient MARCOS MUNOZ MD [facility] PREOP BLACK TAR STOOLS;GERD [id number] 05/25/2013 06:03:00 2013 09:30:00 DIS Outpatient MARCOS MUNOZ MD [facility] BLOOD IN STOOL [id number] 05/20/2013 07:17:00 2013 23:59:59 CLS Outpatient ALEXANDER ERNANDEZ, MARCOS Culp [facility] PREOP BLOOD IN STOOL [id number] 04/17/2013 12:52:00 2012 23:59:59 CLS Outpatient JACI ERNANDEZ, IRENE Downing [facility] LAB ANEMIA [id number] 11/05/2016 13:15:00 PEN Preadmit ALEXANDER ERNANDEZ, MARCOS Culp [facility] ENDO HX POLYPS/IRON DEF ANEMIA/GI BLOOD LOSS [id number] 11/01/2016 07:51:00 ACT Outpatient ALEXANDER ERNANDEZ, MARCOS Culp [facility] RAD BILAT LOWER ABD PAIN R10.31 [id number] 02/08/2016 08:36:00 ACT Outpatient JACI ERNANDEZ , IRENE Downing [facility] HYPONATREMIA [id number] 01/03/2016 15:03:00 ACT Outpatient BARTOLO HUFF APRN [facility] ANEMIA/HGB 8.2 [id number] 04/24/2011 11:48:00 Document Registration
[2016-11-07 08:38] VITALS: BP 132/77
== END 2016-11-07 15:45 | disposition home or self-care (01) ==
LOC: ENDO 07:03
PROVIDERS: ATTEND Surgery
DX: D50.0 Iron deficiency anemia secondary to blood loss (chronic) (principal); K92.2 Gastrointestinal hemorrhage, unspecified
CPT/HCPCS: 91110

== ENCOUNTER 2017-11-27 12:41 | Emergency (ER) | payer MEDICARE ==
[~2017-11-27] VITALS: Ht 170.2 cm; Wt 68.0 kg
[~2017-11-27 12:41] MED LIST changes: -METO-270 PO; +METO-387 PO
--- OUTSIDE RECORDS SUMMARY | 2017-11-27 12:49 | XMS REPORT | Continuity of Care Document ---
Author Author [facility] Organization [facility] Address Unknown Phone Unavailable Allergies Active Description Code Type Severity Reaction Onset Reported/Identified Relationship to Patient Clinical Status Yes amlodipine [id number] Drug Allergy Mild tongue swelling 06/30/2009 Yes benazepril [id number] Drug Allergy Mild tongue swelling 06/30/2009 Yes benazepril [id number] Drug Allergy Mild N/A 10/28/2016 Yes amlodipine [id number] Drug Allergy Moderate TONGUE SWELLING 10/31/2016 Medications There is no data. Problems Date Dx Coded Attending Type Code Diagnosis Diagnosed By 05/25/2013 MARCOS MUNOZ MD Ot 562.10 DIVERTICULOSIS COLON (W/O MENT OF [...] CHRONIC 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 01/05/2016 MARCOS MUONZ MD Ot K44.9 DIAPHRAGMATIC HERNIA WITHOUT OBSTRUCTION [...] Culp Ot K92.0 HEMATEMESIS 01/27/2016 BARTOLO HUFF [employer] ENGINEERING TEACHER Ot D64.9 ANEMIA, UNSPECIFIED 02/01/2016 BARTOLO HUFF [employer] ENGINEERING TEACHER Ot D64.9 ANEMIA, UNSPECIFIED 02/08/2016 Ot 786.50 CHEST PAIN NOS 02/08/2016 JACI ERNANDEZ, IRENE Downing Ot 285.9 ANEMIA NOS 02/08/2016 ALEXANDER ERNANDEZ, MARCOS Culp Ot V72.84 EXAM PRE-OPERATIVE NOS 02/08/2016 BARTOLO HUFF [employer] ENGINEERING TEACHER Ot D64.9 ANEMIA, UNSPECIFIED 02/25/2016 Ot 786.50 CHEST PAIN NOS 02/25/2016 JACI ERNANDEZ, IRENE Downing Ot 285.9 ANEMIA NOS 02/25/2016 ALEXANDER ERNANDEZ, MARCOS Culp Ot V72.84 EXAM PRE-OPERATIVE NOS 02/25/2016 BARTOLO HUFF [employer] ENGINEERING TEACHER Ot D64.9 ANEMIA, UNSPECIFIED 02/25/2016 JACI ERNANDEZ, IRENE Downing Ot E87.1 HYPO-OSMOLALITY AND HYPONATREMIA 02/27/2016 FELISA ERNANDEZ, HOLLEY Downing Ot E87.1 HYPO-OSMOLALITY AND HYPONATREMIA 02/27/2016 FELISA ERNANDEZ, HOLLEY Downing Ot F32.9 MAJOR DEPRESSIVE DISORDER, SINGLE EPISOD 02/27/2016 FELISA ERNANDEZ, HOLLEY Downing Ot F41.9 ANXIETY DISORDER, UNSPECIFIED 02/27/2016 HOLLEY [...] Downing Ot E87.1 HYPO-OSMOLALITY AND HYPONATREMIA 03/08/2016 IRENE BEATTY MD Ot E87.1 HYPO-OSMOLALITY AND HYPONATREMIA 05/08/2016 Ot 786.50 CHEST PAIN NOS 05/08/2016 IRENE BEATTY MD Ot 285.9 ANEMIA NOS 05/08/2016 ALEXANDER ERNANDEZ, MARCOS M Ot V72.84 EXAM PRE-OPERATIVE NOS 05/08/2016 BARTOLO HUFF [employer] ENGINEERING TEACHER Ot D64.9 ANEMIA, UNSPECIFIED 05/08/2016 IRENE BEATTY MD Ot E87.1 HYPO-OSMOLALITY AND HYPONATREMIA 05/09/2016 Ot 786.50 CHEST PAIN NOS 05/09/2016 IRENE BEATTY MD Ot 285.9 ANEMIA NOS 05/09/2016 ALEXANDER ERNANDEZ, MARCOS M Ot V72.84 EXAM PRE-OPERATIVE NOS 05/09/2016 BARTOLO HUFF [employer]RO[employer] ENGINEERING TEACHER Ot D64.9 ANEMIA, UNSPECIFIED 05/09/2016 IRENE BEATTY MD Ot E87.1 HYPO-OSMOLALITY AND HYPONATREMIA 05/09/2016 GERMANIA [...] VIGIL MD Ot Y92.012 BATHROOM OF SINGLE-FAMILY (PRIVATE) HOUS 05/09/2016 GERMANIA VIGIL MD Ot Y99.8 OTHER EXTERNAL CAUSE STATUS 05/09/2016 GERMANIA VIGIL MD Ot Z79.899 OTHER GROUP HOME (CURRENT) DRUG THERAPY 05/09/2016 GERMANIA VIGIL MD [...] VIGIL MD Ot Y92.012 BATHROOM OF SINGLE-FAMILY (PRIVATE) HOUS 05/09/2016 GERMANIA VIGIL MD Ot Y99.8 OTHER EXTERNAL CAUSE STATUS 05/09/2016 GERMANIA VIGIL MD Ot Z79.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 THERAPY 05/09/2016 GERMANIA VIGIL MD Ot Z87.891 PERSONAL HISTORY OF NICOTINE DEPENDENCE 10/29/2016 MARLEEN CARBONE DO Ot D50.0 IRON DEFICIENCY ANEMIA SECONDARY TO BLOO 10/29/2016 ROLAND CARBONE DOI Ot E78.00 PURE HYPERCHOLESTEROLEMIA, UNSPECIFIED 10/29/2016 [employer] MARLEEN Ot E78.5 HYPERLIPIDEMIA, UNSPECIFIED 10/29/2016 [employer] MARLEEN Ot E87.2 ACIDOSIS 10/29/2016 [employer] MARLEEN Ot F41.9 ANXIETY DISORDER, UNSPECIFIED 10/29/2016 [employer] MARLEEN Ot I10 ESSENTIAL (PRIMARY) HYPERTENSION 10/29/2016 [employer] MARLEEN Ot I25.9 CHRONIC ISCHEMIC HEART DISEASE, UNSPECIF 10/29/2016 ROLAND CARBONE DOI Ot I49.3 VENTRICULAR PREMATURE DEPOLARIZATION 10/29/2016 ROLAND CARBONE DOI Ot K21.9 GASTRO-ESOPHAGEAL REFLUX DISEASE WITHOUT 10/29/2016 [employer] MARLEEN Ot 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.7 CHRONIC 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 10/29/2016 [employer] MARLEEN Ot K44.9 DIAPHRAGMATIC HERNIA WITHOUT OBSTRUCTION 10/29/2016 [employer] MARLEEN Ot M19.90 UNSPECIFIED OSTEOARTHRITIS, UNSPECIFIED 10/29/2016 [employer] MARLEEN Ot N40.0 BENIGN PROSTATIC HYPERPLASIA WITHOUT LOW 10/29/2016 [employer] MARLEEN Ot R01.1 CARDIAC MURMUR, UNSPECIFIED 10/29/2016 [employer] MARLEEN Ot Z87.891 PERSONAL HISTORY OF NICOTINE DEPENDENCE 11/02/2016 ALEXANDER ERNANDEZ, MARCOS Culp Ot J90 PLEURAL EFFUSION, NOT ELSEWHERE CLASSIFI 11/02/2016 ALEXANDER ERNANDEZ, MARCOS Culp Ot K42.9 UMBILICAL HERNIA WITHOUT OBSTRUCTION OR 11/02/2016 MARCOS MUNOZ MD Ot K44.9 DIAPHRAGMATIC HERNIA WITHOUT OBSTRUCTION 11/02/2016 MARCOS MUNOZ MD Ot K57.30 DVRTCLOS OF LG INT W/O PERFORATION OR AB 11/02/2016 MARCOS MUNOZ MD Ot Z86.010 PERSONAL HISTORY OF COLONIC POLYPS 11/02/2016 MARCOS MUNOZ MD Ot Z86.39 PERSONAL HISTORY OF ENDO, NUTRITIONAL AN 11/05/2016 MARCOS MUNOZ MD Ot D50.0 IRON DEFICIENCY ANEMIA SECONDARY TO BLOO 11/05/2016 MARCOS MUNOZ MD Ot K57.30 DVRTCLOS OF LG INT W/O PERFORATION OR AB 11/05/2016 MARCOS MUNOZ MD Ot K63.5 POLYP OF COLON 11/05/2016 MARCOS MUNOZ MD Ot Z87.891 PERSONAL HISTORY OF NICOTINE DEPENDENCE 11/07/2016 MARCOS MUNOZ MD Ot D50.0 IRON DEFICIENCY ANEMIA SECONDARY TO BLOO 11/07/2016 MARCOS MUNOZ MD Ot K92.2 GASTROINTESTINAL HEMORRHAGE, UNSPECIFIED 11/07/2016 MARCOS MUNOZ MD Ot D50.0 IRON DEFICIENCY ANEMIA SECONDARY TO BLOO 11/07/2016 MARCOS MUNOZ MD Ot K57.30 DVRTCLOS OF LG INT W/O PERFORATION OR AB 11/07/2016 MARCOS MUNOZ MD Ot K63.5 POLYP OF COLON 11/07/2016 MARCOS MUNOZ MD Ot Z87.891 PERSONAL HISTORY OF NICOTINE DEPENDENCE 11/09/2016 ALEXANDER ERNANDEZ, MARCOS Culp Ot D50.0 IRON DEFICIENCY ANEMIA SECONDARY TO BLOO 11/09/2016 MARCOS MUNOZ MD Ot K92.2 GASTROINTESTINAL HEMORRHAGE, UNSPECIFIED 11/16/2016 MARCOS MUNOZ MD Ot D50.0 IRON DEFICIENCY ANEMIA SECONDARY TO BLOO 11/16/2016 MARCOS MUNOZ MD, Ot K92.2 GASTROINTESTINAL HEMORRHAGE, UNSPECIFIED 11/22/2016 MARCOS MUNOZ MD Ot J90 PLEURAL EFFUSION, NOT ELSEWHERE CLASSIFI 11/22/2016 MARCOS MUNOZ MD Ot K42.9 UMBILICAL HERNIA WITHOUT OBSTRUCTION OR 11/22/2016 MARCOS MUNOZ MD, Ot K44.9 DIAPHRAGMATIC HERNIA WITHOUT OBSTRUCTION 11/22/2016 MARCOS MUNOZ MD Ot K57.30 DVRTCLOS OF LG INT W/O PERFORATION OR AB 11/22/2016 MARCOS MUNOZ MD, Ot Z86.010 PERSONAL HISTORY OF COLONIC POLYPS 11/22/2016 MARCOS MUNOZ MD, Ot Z86.39 PERSONAL HISTORY OF ENDO, NUTRITIONAL AN 12/03/2016 MARCOS MUNOZ MD Ot J90 PLEURAL EFFUSION, NOT ELSEWHERE CLASSIFI 12/03/2016 MARCOS MUONZ MD Ot K42.9 UMBILICAL HERNIA WITHOUT OBSTRUCTION OR 12/03/2016 MARCOS MUNOZ MD Ot K44.9 DIAPHRAGMATIC HERNIA WITHOUT OBSTRUCTION 12/03/2016 MARCOS MUNOZ MD, Ot K57.30 DVRTCLOS OF LG INT W/O PERFORATION OR AB 12/03/2016 MARCOS MUNOZ MD, Ot Z86.010 PERSONAL HISTORY OF COLONIC POLYPS 12/03/2016 MARCOS MUNOZ MD, Ot Z86.39 PERSONAL HISTORY OF ENDO, NUTRITIONAL AN Procedures Code Description Performed By Performed On [id number] EXCISION OF STOMACH, PYLORUS, ENDO, DIAG 10/29/2016 Results Test Result Range RED CELLS LEUKO REDUCED AS1 - 01/03/16 15:34 RED CELLS LEUKO REDUCED AS1 TRANSFUSED 01/03/161941 [facility] Blood type T Indirect antibody screen panel - 01/03/16 15:34 ABO+Rh group AP NRG Transfusion band number [id number] Blood group antibody screen NEGATIVE NR Complete blood count (CBC) with automated white blood cell (WBC) differential - 02/25/16 12:45 Blood leukocytes automated count (number/volume) 16.0 10*3/uL 4.3-11.0 Blood erythrocytes automated count (number/volume) 3.29 10*6/uL 4.35-5.85 Venous blood hemoglobin measurement (mass/volume) 10.3 [...] Automated blood platelet mean volume measurement 11.7 [foz_us] 7.4-10.4 Automated blood neutrophils/100 leukocytes 93 % [...] Serum or plasma sodium measurement (moles/volume) 128 mmol/L 135-145 Serum or plasma potassium measurement (moles/volume) 4.3 mmol/L 3.6-5.0 Serum or plasma chloride measurement (moles/volume) 102 mmol/L 98-107 Carbon dioxide 19 mmol/L 21-32 Serum or plasma anion gap determination (moles/volume) 7 mmol/L 5-14 Serum or plasma urea nitrogen measurement (mass/volume) 25 mg/dL 7-18 Serum or plasma creatinine measurement (mass/volume) 1.20 mg/dL 0.60-1.30 Serum or plasma urea nitrogen/creatinine mass [...] or plasma troponin i.cardiac measurement (mass/volume) < ng/ mL <0.30 Blood lactic acid measurement (moles/volume) - 02/25/16 14:10 Blood lactic acid measurement (moles/volume) 1.9 mmol/L 0.5-2.0 Bacterial blood culture - 02/25/16 14:10 Bacterial blood culture NG NRG Bacterial blood culture - 02/25/16 14:24 Bacterial blood culture NG NRG Complete blood count (CBC) with automated white blood cell (WBC) differential - 02/26/16 04:30 Blood leukocytes automated count (number/volume) 16.3 10*3/uL 4.3-11.0 Blood erythrocytes automated count (number/volume) 3.12 10*6/uL 4.35-5.85 Venous blood hemoglobin measurement (mass/volume) 9.7 [...] Automated blood platelet mean volume measurement 11.9 [foz_us] 7.4-10.4 Automated blood neutrophils/100 leukocytes 91 % [...] 05:00 Blood leukocytes automated count (number/volume) 8.5 10*3/uL 4.3-11.0 Blood erythrocytes automated count (number/volume) 2.99 10*6/uL 4.35-5.85 Venous blood hemoglobin measurement (mass/volume) 9.2 [...] Automated blood platelet mean volume measurement 11.7 [foz_us] 7.4-10.4 Automated blood neutrophils/100 leukocytes 88 % [...] Serum or plasma sodium measurement (moles/volume) 135 mmol/L 135-145 Serum or plasma potassium measurement (moles/volume) 4.3 mmol/L 3.6-5.0 Serum or plasma chloride measurement (moles/volume) 110 mmol/L 98-107 Carbon dioxide 19 mmol/L 21-32 Serum or plasma anion gap determination (moles/volume) 6 mmol/L 5-14 Serum or plasma urea nitrogen measurement (mass/volume) 15 mg/dL 7-18 Serum or plasma creatinine measurement (mass/volume) 0.95 mg/dL 0.60-1.30 Serum or plasma urea nitrogen/creatinine mass ratio 16 NRG Serum or plasma creatinine measurement with calculation of estimated glomerular filtration rate > NRG Serum or plasma glucose measurement (mass/volume) 106 mg/dL 70-105 Serum or plasma calcium measurement (mass/volume) 8.6 mg/dL 8.5-10.1 Complete blood count (CBC) with automated white blood cell (WBC) differential - 10/28/16 09:49 Blood leukocytes automated count (number/volume) 10.0 10*3/uL 4.3-11.0 Blood erythrocytes automated count (number/volume) 1.85 10*6/uL 4.35-5.85 Venous blood hemoglobin measurement (mass/volume) 4.6 [...] Automated blood platelet mean volume measurement 11.6 [foz_us] 7.4-10.4 Automated blood neutrophils/100 leukocytes 85 % [...] Serum or plasma sodium measurement (moles/volume) 138 mmol/L 135-145 Serum or plasma potassium measurement (moles/volume) 3.6 mmol/L 3.6-5.0 Serum or plasma chloride measurement (moles/volume) 110 mmol/L 98-107 Carbon dioxide 16 mmol/L 21-32 Serum or plasma anion gap determination (moles/volume) 12 mmol/L 5-14 Serum or plasma urea nitrogen measurement (mass/volume) 37 mg/dL 7-18 Serum or plasma creatinine measurement (mass/volume) 1.23 mg/dL 0.60-1.30 Serum or plasma urea nitrogen/creatinine mass ratio 30 0 -20 Serum or plasma creatinine measurement with calculation [...] or plasma troponin i.cardiac measurement (mass/volume) 2.06 ng /mL <0.30 Lipase - 10/28/16 09:49 Lipase 21 U/L 8-78 RED CELLS LEUKO REDUCED AS1 - 10/28/16 10:00 RED CELLS LEUKO REDUCED AS1 TRANSFUSED 10/28/16 1204 NRG Blood type T Indirect antibody screen panel - 10/28/16 10:00 ABO+Rh group AP NRG Transfusion band number [id number] NRG Blood group antibody screen NEGATIVE NRG [...] Urine pH measurement by test strip 6 5-9 Specific gravity of urine by test strip 1.015 1.016- 1.022 Urine protein assay by test strip, semi-quantitative [...] 15:51 Blood leukocytes automated count (number/volume) 10.1 10*3/uL 4.3-11.0 Blood erythrocytes automated count (number/volume) 2.70 10*6/uL 4.35-5.85 Venous blood hemoglobin measurement (mass/volume) 7.3 [...] Automated blood platelet mean volume measurement 12.4 [foz_us] 7.4-10.4 Automated blood neutrophils/100 leukocytes 74 % [...] or plasma troponin i.cardiac measurement (mass/volume) 2.79 ng /mL <0.30 Complete blood count (CBC) with automated white blood cell (WBC) differential - 10/29/16 04:02 Blood leukocytes automated count (number/volume) 9.9 10*3/uL 4.3-11.0 Blood erythrocytes automated count (number/volume) 4.16 10*6/uL 4.35-5.85 Venous blood hemoglobin measurement (mass/volume) 11.5 [...] Automated blood platelet mean volume measurement 12.4 [foz_us] 7.4-10.4 Automated blood neutrophils/100 leukocytes 75 % [...] Serum or plasma phosphate measurement (mass/volume) 2.7 mg/dL 2.3-4.7 Magnesium - 10/29/16 04:02 Magnesium 2.2 mg/dL 1.8-2.4 Comprehensive metabolic panel - 10/29/16 04:02 Serum or plasma sodium measurement (moles/volume) 141 mmol/L 135-145 Serum or plasma potassium measurement (moles/volume) 4.0 mmol/L 3.6-5.0 Serum or plasma chloride measurement (moles/volume) 115 mmol/L 98-107 Carbon dioxide 16 mmol/L 21-32 Serum or plasma anion gap determination (moles/volume) 10 mmol/L 5-14 Serum or plasma urea nitrogen measurement (mass/volume) 36 mg/dL 7-18 Serum or plasma creatinine measurement (mass/volume) 1.14 mg/dL 0.60-1.30 Serum or plasma urea nitrogen/creatinine mass ratio 32 0 -20 Serum or plasma creatinine measurement with calculation [...] Status Pt. Type Provider Facility Loc./Unit Complaint [id number] 11/07/2016 07:03:00 11/07/2016 15:45:00 DIS Outpatient MARCOS MUNOZ MD [facility] ENDO CHRONIC GERD, DYSPHAGIA [id number] 11/05/2016 09:57:00 11/05/2016 13:32:00 DIS Outpatient MARCOS MUNOZ MD [facility] ENDO HX POLYPS/IRON DEF ANEMIA/GI BLOOD LOSS [id number] 11/01/2016 07:51:00 11/01/2016 23:59:59 CLS Outpatient MARCOS MUNOZ MD [facility] RAD BILAT LOWER ABD PAIN R10.31 [id number] 10/31/2016 05:35:00 10/31/2016 14:54:00 DIS Outpatient MARCOS MUNOZ MD [facility] PREOP HX POLYPS/IRON DEF ANEMIA/GI BLOOD LOSS [id number] 10/28/2016 10:30:00 10/29/2016 16:52:00 DIS Inpatient MARLEEN CARBONE DO [facility] ICU ANEMIA, ELEVATED TROPONIN [id number] 05/08/2016 23:20:00 05/09/2016 01:01:00 DIS Emergency YARITZA ERNANDEZ, GERMANIA Small [facility] ER FALL,HIT HEAD,INJURED BOTH ARMS [id number] 02/25/2016 13:46:00 02/27/2016 17:55:00 DIS Inpatient FELISA ERNANDEZ, HOLLEY Downing [facility] 4TH RLL PNEUMONIA,ANXIETY [id number] 02/08/2016 08:36:00 02/08/2016 23:59:59 CLS Outpatient IRENE BEATTY MD [facility] HYPONATREMIA [id number] 01/05/2016 07:33:00 01/05/2016 10:20:00 DIS Outpatient MARCOS MUNOZ MD [facility] BLACK STOOL;GERD [id number] 01/04/2016 06:06:00 01/04/2016 15:05:00 DIS Outpatient MARCOS MUNOZ MD [facility] PREOP BLACK TAR STOOLS; GERD [id number] 01/03/2016 15:03:00 01/03/2016 23:59:59 CLS Outpatient BARTOLO HUFF APRN [facility] ANEMIA/HGB 8.2 [id number] 05/25/2013 06:03:00 05/25/2013 09:30:00 DIS Outpatient MARCOS MUNOZ MD [facility] BLOOD IN STOOL [id number] 05/20/2013 07:17:00 05/20/2013 23:59:59 CLS Outpatient MARCOS MUNOZ MD [facility] PREOP BLOOD IN STOOL [id number] 04/17/2013 12:52:00 04/17/2013 23:59:59 CLS Outpatient IRENE BEATTY MD [facility] LAB ANEMIA [id number] 11/27/2017 12:43:00 ACT Emergency SUDEEP ARCE MD [facility] ER DIARRHEA,VOMITING,DIARRHEA [id number] 04/24/2011 11:48:00 Document Registration
[2017-11-27] MEDS ORDERED: ONDANSETRON 4 MG/2 ML (SDV) Z0FRAN IVP ONE (13:15)
[2017-11-27 13:25] LABS: BASOPHILS % (AUTO) 0 % (0-10); EOSINOPHILS # (AUTO) 0.6 10^3/uL (0.0-0.3); EOSINOPHILS % (AUTO) 7 % (0-10); HEMATOCRIT 35 % (40-54); LYMPHOCYTES # (AUTO) 0.9 X 10^3 (1.0-4.0); LYMPHOCYTES % (AUTO) 12 % (12-44); MEAN CORPUSCULAR HEMOGLOBIN 33 PG (25-34); MEAN CORPUSCULAR HGB CONC 34 G/DL (32-36); MEAN CORPUSCULAR VOLUME 96 FL (80-99); MEAN PLATELET VOLUME 12.1 FL (7.4-10.4); MONOCYTES # (AUTO) 0.8 X 10^3 (0.0-1.0); MONOCYTES % (AUTO) 10 % (0-12); NEUTROPHILS # (AUTO) 5.5 X 10^3 (1.8-7.8); NEUTROPHILS % (AUTO) 71 % (42-75); PLATELET COUNT 196 10^3/uL (130-400); RED BLOOD COUNT 3.63 10^6/uL (4.35-5.85); RED CELL DISTRIBUTION WIDTH 12.7 % (10.0-14.5); WHITE BLOOD COUNT 7.7 10^3/uL (4.3-11.0)
[2017-11-27 13:37] LABS: ALANINE AMINOTRANSFERASE 15 U/L (0-55); ALBUMIN 3.5 GM/DL (3.2-4.5); ALKALINE PHOSPHATASE 60 U/L (40-136); AMYLASE 48 U/L (25-125); BILIRUBIN,TOTAL 0.4 MG/DL (0.1-1.0); BUN/CREATININE RATIO 15; CALCIUM 9.1 MG/DL (8.5-10.1); CARBON DIOXIDE 27 MMOL/L (21-32); CHLORIDE 105 MMOL/L (98-107); CREATININE SERUM 1.09 MG/DL (0.60-1.30); GFR ESTIMATED > 60; GLUCOSE 122 MG/DL (70-105); LIPASE 21 U/L (8-78); POTASSIUM 3.3 MMOL/L (3.6-5.0); SODIUM 140 MMOL/L (135-145); TOTAL PROTEIN 6.5 GM/DL (6.4-8.2)
[2017-11-27] MEDS ORDERED: NS 250 ML (IVPB) BAG IV ONE (14:15)
[2017-11-27] MEDS ORDERED: IOHEXOL 350 MG/ML 100 ML (OMNIPAQUE 350) VIAL IV ONE (14:15)
--- NOTE | 2017-11-27 14:38 | ED Abdominal Pain ---
General Chief Complaint: Abdominal/GI Problems Stated Complaint: DIARRHEA,VOMITING,DIARRHEA Nursing Triage Note: PT AMBULATES TO ROOM 1 PT CO OF NAUSEA. PT STATES HAS BEEN NAUSEATED SINCE LAST SATURDAY, PT STATES HAD DIARRHEA UNTIL SAT AND ABD TENDER ON L LOWER ABD. PT DENIES PAIN AT THIS X Sepsis Screen: No Definite Risk Source of Information: Patient Exam Limitations: No Limitations History of Present Illness Date Seen by Provider: Nov 27, 2017 Time Seen by Provider: 13:30 Initial Comments Patient is a 81-year-old male who presents to the emergency room accompanied by his daughters and grandson with complaints of nausea, vomiting, diarrhea for one week. He reports that 1 week ago he ate a large meal of long Dequan Kim for lunch and that night he had a bunch were needed been nauseated, vomiting, diarrhea and left lower quadrant abdominal pain ever since. Timing/Duration: 1 Week Severity/Quality: Moderate Location: LLQ Radiation: No Radiation Modifying Factors: Improves With Vomiting Associated Symptoms: Nausea/Vomiting Allergies and Home Medications Allergies Coded Allergies: amlodipine (Verified Allergy, Intermediate, TONGUE SWELLING, 10/31/16) Home Medications Alprazolam 0.5 Mg Tablet, 0.5 MG PO TID PRN for ANXIETY, (Reported) Amlodipine Besylate 10 Mg Tablet, 10 MG PO DAILY, (Reported) Hydroxyzine HCl 25 Mg Tablet, 25 MG PO TID PRN for ITCHING, (Reported) Latanoprost 2.5 Ml Drops, 1 DROP OU HS, (Reported) Lisinopril 40 Mg Tablet, 40 MG PO DAILY, (Reported) Metoprolol Succinate 25 Mg Tab.er.24h, 25 MG PO DAILY Prescribed by: BATSHEVA GRANT on 10/29/16 1617 Ondansetron 8 Mg Tab.rapdis, 4 MG PO Q4H PRN for nausea and vomiting Prescribed by: FERMÍN DAVIS on 11/27/17 1559 Sertraline HCl 50 Mg Tablet, 50 MG PO DAILY, (Reported) Tamsulosin Hcl 0.4 Mg Cap, 0.4 MG PO DAILY@1800, (Reported) Temazepam 30 Mg Capsule, 30 MG PO HS PRN for SLEEP, (Reported) Timolol Maleate 5 Ml Drops, 1 DROP OU BID, (Reported) Patient Home Medication List Home Medication List Reviewed: Yes Review of Systems Constitutional: see HPI; No chills, No diaphoresis EENTM: See HPI; No Blurred Vision, No Double Vision, No Eye Pain Respiratory: See HPI; Denies Cough, Denies Orthopnea, Denies Shortness of Air Cardiovascular: See HPI; Denies Chest Pain, Denies Edema Gastrointestinal: See HPI, Abdominal Pain (left lower abdominal), Diarrhea, Nausea, Vomiting Genitourinary: See HPI; Denies Burning, Denies Discharge, Denies Drainage Musculoskeletal: see HPI; No back pain, No gout Skin: see HPI; No change in color, No change in hair/nails Psychiatric/Neurological: See HPI; Denies Anxiety, Denies Depressed Endocrine: See HPI; Denies Excessive Sweating, Denies Flushing Hematologic/Lymphatic: See HPI; Denies Anemia, Denies Blood Clots All Other Systems Reviewed Negative Unless Noted: Yes Past Qxhhdfx-Sfjejy-Mwwejq Hx Past Med/Social Hx: Reviewed Nursing Past Med/Soc Hx Patient Social History Alcohol Use: Denies Use Recreational Drug Use: No Smoking Status: Former Smoker Type Used: Cigarettes Former Smoker, Quit: May 13, 1980 Recent Foreign Travel: No Contact w/Someone Who Travel: No Recent Infectious Disease Expo: No Recent Hopitalizations: No Physical Abuse: No Sexual Abuse: No Immunizations Up To Date Tetanus Booster (TDap): Unknown Date of Pneumonia Vaccine: Feb 12, 2011 Date of Influenza Vaccine: Feb 29, 2016 Seasonal Allergies Seasonal Allergies: Yes Past Medical History Surgeries: Yes (knee scope) Orthopedic Respiratory: No Pneumonia Cardiac: Yes High Cholesterol, Hypertension Neurological: No Reproductive Disorders: No Sexually Transmitted Disease: No HIV/AIDS: No Genitourinary: No Prostate Problems Gastrointestinal: Yes Gastroesophageal Reflux, Gastrointestinal Bleed, Ulcer Musculoskeletal: Yes (ARTHRITIS) Arthritis Endocrine: No HEENT: No Loss of Vision: Bilateral Hearing Impairment: Denies Cancer: No Psychosocial: Yes Anxiety Nursing Suicide Risk Score: 0 Integumentary: No Blood Disorders: No Adverse Reaction/Blood Tranf: No (HAS HAD BLOOS WITH NO REACTION) Family Medical History Reviewed Nursing Family Hx Physical Exam Vital Signs Vital Signs - First Documented 11/27/17 13:00 Temp 97.4 Pulse 67 Resp 18 B/P (MAP) 127/62 (83) Pulse Ox 98 Capillary Refill : Less Than 3 Seconds Height/Weight/BMI Height: 5'7.00" Weight: 150lbs. 3.2oz. 68.037286uh; 25.06 BMI Method:Stated General Appearance: WD/WN, no apparent distress HEENT: PERRL/EOMI, normal ENT inspection, TMs normal, pharynx normal Neck: non-tender, full range of motion, supple, normal inspection Respiratory: chest non-tender, lungs clear, normal breath sounds, no respiratory distress, no accessory muscle use Cardiovascular: regular rate, rhythm, no edema, no gallop, no JVD, no murmur Gastrointestinal: normal bowel sounds, soft, no organomegaly, no pulsatile mass , tenderness (mild tenderness in the left lower quadrant.) Extremities: normal range of motion, non-tender, normal inspection, no pedal edema, no calf tenderness Back: normal inspection, no CVA tenderness, no vertebral tenderness Neurologic/Psychiatric: alert, normal mood/affect, oriented x 3 Skin: normal color, warm/dry Lymphatic: no adenopathy Progress/Results/Core Measures Results/Orders Lab Results Laboratory Tests Test 11/27/17 13:11 11/27/17 15:05 Range/Units White Blood Count 7.7 4.3-11.0 10^3/uL Red Blood Count 3.63 L 4.35-5.85 10^6/uL Hemoglobin 12.0 L 13.3-17.7 G/DL Hematocrit 35 L 40-54 % Mean Corpuscular Volume 96 80-99 FL Mean Corpuscular Hemoglobin 33 25-34 PG Mean Corpuscular Hemoglobin Concent 34 32-36 G/DL Red Cell Distribution Width 12.7 10.0-14.5 % Platelet Count 196 130-400 10^3/uL Mean Platelet Volume 12.1 H 7.4-10.4 FL Neutrophils (%) (Auto) 71 42-75 % Lymphocytes (%) (Auto) 12 12-44 % Monocytes (%) (Auto) 10 0-12 % Eosinophils (%) (Auto) 7 0-10 % Basophils (%) (Auto) 0 0-10 % Neutrophils # (Auto) 5.5 1.8-7.8 X 10^3 Lymphocytes # (Auto) 0.9 L 1.0-4.0 X 10^3 Monocytes # (Auto) 0.8 0.0-1.0 X 10^3 Eosinophils # (Auto) 0.6 H 0.0-0.3 10^3/uL Basophils # (Auto) 0.0 0.0-0.1 10^3/uL Sodium Level 140 135-145 MMOL/L Potassium Level 3.3 L 3.6-5.0 MMOL/L Chloride Level 105 98-107 MMOL/L Carbon Dioxide Level 27 21-32 MMOL/L Anion Gap 8 5-14 MMOL/L Blood Urea Nitrogen 16 7-18 MG/DL Creatinine 1.09 0.60-1.30 MG/DL Estimat Glomerular Filtration Rate > 60 BUN/Creatinine Ratio 15 Glucose Level 122 H 70-105 MG/DL Calcium Level 9.1 8.5-10.1 MG/DL Total Bilirubin 0.4 0.1-1.0 MG/DL Aspartate Amino Transf (AST/SGOT) 17 5-34 U/L Alanine Aminotransferase (ALT/SGPT) 15 0-55 U/L Alkaline Phosphatase 60 40-136 U/L Total Protein 6.5 6.4-8.2 GM/DL Albumin 3.5 3.2-4.5 GM/DL Amylase Level 48 25-125 U/L Lipase 21 8-78 U/L Urine Color YELLOW Urine Clarity CLEAR Urine pH 8 5-9 Urine Specific [place] 1.010 L 1.016-1.022 Urine Protein NEGATIVE NEGATIVE Urine Glucose (UA) NEGATIVE NEGATIVE Urine Ketones NEGATIVE NEGATIVE Urine Nitrite NEGATIVE NEGATIVE Urine Bilirubin NEGATIVE NEGATIVE Urine Urobilinogen NORMAL NORMAL MG/DL Urine Leukocyte Esterase NEGATIVE NEGATIVE Urine RBC (Auto) NEGATIVE NEGATIVE Urine RBC RARE /HPF Urine WBC RARE /HPF Urine Squamous Epithelial Cells NONE /HPF Urine Renal Epithelial Cells NONE /HPF Urine Crystals NONE /LPF Urine Bacteria NEGATIVE /HPF Urine Casts NONE /LPF Urine Mucus NEGATIVE /LPF Urine Culture Indicated NO My Orders Orders - FERMÍN DAVIS Comprehensive Metabolic Panel (11/27/17 13:13) Lipase (11/27/17 13:13) Amylase (11/27/17 13:13) Ua Culture If Indicated (11/27/17 13:13) Saline Lock/Iv-Start (11/27/17 13:13) Cbc With Automated Diff (11/27/17 13:13) Ondansetron Injection (Zofran Injectio (11/27/17 13:15) Ct Abdomen/Pelvis W (11/27/17 13:44) Iohexol Injection (Omnipaque 350 Mg/Ml 1 (11/27/17 14:15) Ns (Ivpb) (Sodium Chloride 0.9%) (11/27/17 14:15) Contrast Received (Contrast Received) (11/27/17 14:45) Iv Push Head Of Mobile Ed (11/27/17 ) Medications Given in ED Vital Signs/I&O 11/27/17 11/27/17 13:00 16:06 Temp 97.4 97.4 Pulse 67 67 Resp 18 18 B/P (MAP) 127/62 (83) 127/62 (83) Pulse Ox 98 98 Blood Pressure Mean: 83 Progress Progress Note : Progress Note Patient is feeling much better after administration of Zofran. He agrees to close follow up with his primary care physician and plans for discharge. Departure Impression Primary Impression: Nausea and vomiting Additional Impression: Diverticulosis Disposition: 01 HOME, SELF-CARE Condition: Stable/Unchanged Departure-Patient Inst. Referrals: IRENE BEATTY MD (PCP/Family) Primary Care Physician Patient Instructions: Acute Abdomen (Belly Pain), Adult (DC), Diverticulosis ( DC), Nausea and Vomiting, Adult (DC) Add. Discharge Instructions: Take medications as directed. Follow-up with Dr. Beatty within 1 week for recheck. Call today or first thing tomorrow morning for an appointment time. Return back to the emergency room for any increase in nausea, vomiting, fevers, or any other concerns as needed. All discharge instructions reviewed with patient and/or family. Voiced understanding. Scripts Ondansetron (Zofran Odt) 8 Mg Tab.rapdis 4 MG PO Q4H PRN for nausea and vomiting, #20 TAB Prov: FERMÍN DAVIS 11/27/17 FERMÍN DAVIS Nov 27, 2017 14:38
[2017-11-27] MEDS ORDERED: RECEIVED CONTRAST (Hold Metformin) IV SCH (14:45)
--- NOTE | 2017-11-27 14:55 | Diagnostic Imaging Report ---
PROCEDURE: CT abdomen and pelvis with contrast. TECHNIQUE: Multiple contiguous axial images were obtained through the abdomen and pelvis after administration of intravenous contrast. INDICATION: Bilateral lower abdominal pain. COMPARISON: Comparison is made with prior CT from 11/01/2016. FINDINGS: Imaging through the lung bases demonstrates lung bases to be clear. Previously seen bilateral effusions have resolved. There is a large hiatal hernia. No discrete liver mass is identified. Gallbladder is unremarkable. Pancreas and spleen are unremarkable. No adrenal mass is identified. Small cortical renal low densities are noted bilaterally, too small to characterize but likely cysts. The aorta is calcified but non-aneurysmal. No central retroperitoneal or mesenteric lymphadenopathy is seen. Extensive diverticulosis of the sigmoid colon is seen with moderate diverticulosis of the descending colon. No findings to suggest acute diverticulitis are identified. The bladder is unremarkable. Prostate is unremarkable. There appears to be a fat-containing left inguinal hernia. Bony structures are nonacute. IMPRESSION: 1. Moderate hiatal hernia. 2. Uncomplicated diverticulosis. 3. No acute features detected. Dictated by: Dictated on workstation # [id number]
[2017-11-27 15:20] LABS: BILIRUBIN,URINE NEGATIVE (NEGATIVE); CLARITY,URINE CLEAR; COLOR,URINE YELLOW; GLUCOSE, URINE (UA) NEGATIVE (NEGATIVE); KETONES,URINE NEGATIVE (NEGATIVE); LEUKOCYTE ESTERASE ,URINE NEGATIVE (NEGATIVE); NITRITE,URINE NEGATIVE (NEGATIVE); PH,URINE 8 (5-9); PROTEIN,URINE NEGATIVE (NEGATIVE); UROBILINOGEN,URINE NORMAL (NORMAL)
[2017-11-27 15:46] LABS: BACTERIA,URINE NEGATIVE /HPF; RBC,URINE RARE /HPF; WBC,URINE RARE /HPF
[2017-11-27] MEDS ORDERED: ONDA8TAB9 PO (15:59)
[2017-11-27 16:06] VITALS: BP 127/62
== END 2017-11-27 16:06 | disposition home or self-care (01) ==
LOC: EDUNIT# 12:41 → ER 12:43
DX: K57.32 Diverticulitis of large intestine without perforation or abscess without bleeding (principal); E78.00 Pure hypercholesterolemia, unspecified; I10 Essential (primary) hypertension; F41.9 Anxiety disorder, unspecified; K21.9 Gastro-esophageal reflux disease without esophagitis; Z87.19 Personal history of other diseases of the digestive system; Z88.8 Allergy status to other drugs, medicaments and biological substances; Z87.891 Personal history of nicotine dependence; Z87.01 Personal history of pneumonia (recurrent)
CPT/HCPCS: 36415; 74177; 80053; 81000; 82150; 83690; 85025; 96374

== ENCOUNTER 2018-02-17 13:39 | Inpatient (IN) | payer MEDICARE ==
[~2018-02-17] VITALS: Ht 170.2 cm; Wt 76.4 kg
[~2018-02-17 13:39] MED LIST changes: +ONDA8TAB9 PO
[2018-02-17 14:22] LABS: BASOPHILS % (AUTO) 0 % (0-10); EOSINOPHILS % (AUTO) 0 % (0-10); HEMATOCRIT 33 % (40-54); HEMOGLOBIN 11.3 G/DL (13.3-17.7); LYMPHOCYTES # (AUTO) 0.5 X 10^3 (1.0-4.0); LYMPHOCYTES % (AUTO) 2 % (12-44); MEAN CORPUSCULAR HEMOGLOBIN 32 PG (25-34); MEAN CORPUSCULAR HGB CONC 34 G/DL (32-36); MEAN CORPUSCULAR VOLUME 95 FL (80-99); MONOCYTES % (AUTO) 4 % (0-12); NEUTROPHILS # (AUTO) 21.4 X 10^3 (1.8-7.8); NEUTROPHILS % (AUTO) 93 % (42-75); PLATELET COUNT 236 10^3/uL (130-400); RED BLOOD COUNT 3.53 10^6/uL (4.35-5.85); RED CELL DISTRIBUTION WIDTH 13.5 % (10.0-14.5); WHITE BLOOD COUNT 22.9 10^3/uL (4.3-11.0)
[2018-02-17] MEDS ORDERED: ACETAMINOPHEN 500 MG TAB (TYLENOL) PO ONE (14:30)
[2018-02-17] MEDS ORDERED: NS IV 1000 ML 1,000 ML IV SCH (14:30)
[2018-02-17 14:32] LABS: INR 1.3 (0.8-1.4); PROTHROMBIN TIME PATIENT 16.1 SEC (12.2-14.7)
[2018-02-17 14:38] LABS: ALANINE AMINOTRANSFERASE 15 U/L (0-55); ALBUMIN 3.5 GM/DL (3.2-4.5); ALKALINE PHOSPHATASE 59 U/L (40-136); BILIRUBIN,TOTAL 0.4 MG/DL (0.1-1.0); BUN/CREATININE RATIO 21; CALCIUM 8.9 MG/DL (8.5-10.1); CARBON DIOXIDE 19 MMOL/L (21-32); CHLORIDE 109 MMOL/L (98-107); CREATININE SERUM 1.13 MG/DL (0.60-1.30); GFR ESTIMATED > 60; GLUCOSE 150 MG/DL (70-105); POTASSIUM 3.7 MMOL/L (3.6-5.0); SODIUM 138 MMOL/L (135-145); TOTAL PROTEIN 6.4 GM/DL (6.4-8.2)
--- NOTE | 2018-02-17 14:39 | Diagnostic Imaging Report ---
INDICATION: Weakness and cough Frontal chest obtained at 256 hours p.m. and compared to 10/29/2016. Heart is borderline in size. Aorta is tortuous. There is new extensive infiltrate in the left perihilar region and base. The right lung appears clear. There is no pneumothorax or gross pleural fluid. IMPRESSION: New extensive infiltrate in the left midlung and base, suspicious for pneumonia. Followup is recommended. Dictated by: Dictated on workstation # [id number]
--- NOTE | 2018-02-17 14:43 | Diagnostic Imaging Report ---
INDICATION: Stroke and weakness. COMPARISON: No prior examinations are available for comparison. TECHNIQUE: Multiple contiguous axial images were obtained through the brain without the use of intravenous contrast. FINDINGS: There is prominence of the ventricles and sulci. There is some chronic microvascular ischemic disease. There is no hydrocephalus. There is no midline shift. There is no intracranial mass, hemorrhage, or extra-axial fluid collection. There is no evidence of an acute transcortical infarct. The calvarium is intact. The sinuses and mastoid air cells are clear. IMPRESSION: Atrophy and some chronic microvascular ischemic disease; however, no acute intracranial abnormality. If there is high clinical concern for an acute CVA, further evaluation with MRI should be considered. Dictated by: Dictated on workstation # [id number]
[2018-02-17 14:46] LABS: BAND NEUTROPHILS 19 %; BASOPHILS % (MANUAL) 0 %; EOSINOPHILS % (MANUAL) 0 %; LYMPHOCYTES % (MANUAL) 2 %; MONOCYTES % (MANUAL) 6 %; NEUTROPHILS % (MANUAL) 73 %; RBC MORPH NORMAL
--- NOTE | 2018-02-17 14:52 | ED Cough/URI ---
General Chief Complaint: Fever-Adult/Adol Stated Complaint: WEAKNESS Source: patient Exam Limitations: no limitations History of Present Illness Date Seen by Provider: Feb 17, 2018 Time Seen by Provider: 14:05 Initial Comments Patient is an 82-year-old male who presents to the emergency room with complaints of weakness and generalized body aches that started this morning. He reports that he's had a cough for the past few days but has not been able to cough anything up. He is accompanied by his daughter reports that this morning when she talked to him on the phone he had a little bit of mumbled speech and told her that he has been having body aches and chills all over at 0645. Timing/Duration: this morning Severity/Quality: dry cough Associated Symptoms: cough, fever/chills Allergies and Home Medications Allergies Coded Allergies: amlodipine (Verified Allergy, Intermediate, TONGUE SWELLING, 10/31/16) Home Medications Alprazolam 0.5 Mg Tablet, 0.5 MG PO TID PRN for ANXIETY, (Reported) Amlodipine Besylate 10 Mg Tablet, 10 MG PO DAILY, (Reported) Dorzolamide HCl/Pf 10 Ml Drops, 1 DROP OU BID, (Reported) Latanoprost 2.5 Ml Drops, 1 DROP OU HS, (Reported) Lisinopril 40 Mg Tablet, 40 MG PO DAILY, (Reported) Metoprolol Succinate 25 Mg Tab.er.24h, 25 MG PO HS, (Reported) Pantoprazole Sodium 40 Mg Tablet.dr, 40 MG PO HS, (Reported) Tamsulosin HCl 0.4 Mg Cap.er.24h, 0.4 MG PO 1800, (Reported) Timolol Maleate 5 Ml Drops, 1 DROP OU BID, (Reported) Patient Home Medication List Home Medication List Reviewed: Yes Review of Systems Review of Systems Constitutional: see HPI, chills, fever, malaise, weakness Respiratory: see HPI, cough; No phlegm, No short of breath Musculoskeletal: see HPI, other (Body aches) All Other Systems Reviewed Negative Unless Noted: Yes Past Lunedbp-Gokvld-Iesyme Hx Past Med/Social Hx: Reviewed Nursing Past Med/Soc Hx Patient Social History Type Used: Cigarettes Former Smoker, Quit: May 13, 1980 Recent Hopitalizations: No Immunizations Up To Date Tetanus Booster (TDap): Unknown Date of Pneumonia Vaccine: Feb 12, 2011 Date of Influenza Vaccine: Feb 29, 2016 Seasonal Allergies Seasonal Allergies: Yes Past Medical History Surgeries: Yes (knee scope) Orthopedic Respiratory: No Pneumonia Cardiac: Yes High Cholesterol, Hypertension Neurological: No Reproductive Disorders: No Sexually Transmitted Disease: No HIV/AIDS: No Genitourinary: No Prostate Problems Gastrointestinal: Yes Gastroesophageal Reflux, Gastrointestinal Bleed, Ulcer Musculoskeletal: Yes (ARTHRITIS) Arthritis Endocrine: No HEENT: No Loss of Vision: Bilateral Hearing Impairment: Denies Cancer: No Psychosocial: Yes Anxiety Integumentary: No Blood Disorders: No Adverse Reaction/Blood Tranf: No (HAS HAD BLOOS WITH NO REACTION) Family Medical History Reviewed Nursing Family Hx Physical Exam Vital Signs - First Documented 02/17/18 13:51 Temp 100.4 Pulse 97 Resp 19 B/P (MAP) 131/70 (90) Pulse Ox 93 O2 Delivery Room Air Capillary Refill : Height: 5'7.00" Weight: 150lbs. 3.2oz. 68.329232df; 25.06 BMI Method:Stated General Appearance: WD/WN, no apparent distress Eyes: Bilateral Eye Normal Inspection, Bilateral Eye PERRL, Bilateral Eye EOMI HEENT: PERRL/EOMI, normal ENT inspection, TMs normal, pharynx normal Neck: non-tender, full range of motion, supple, normal inspection Respiratory: chest non-tender, lungs clear, normal breath sounds, no respiratory distress, no accessory muscle use Cardiovascular: normal peripheral pulses, regular rate, rhythm, no edema, no gallop, no JVD, no murmur Gastrointestinal: normal bowel sounds, non tender, soft, no organomegaly, no pulsatile mass Neurologic/Psychiatric: alert, normal mood/affect, oriented x 3 Skin: normal color, warm/dry Focused Exam Lactate Level 02/17/18 14:08: Lactic Acid Level 2.52*H Lactic Acid Level Laboratory Tests Test 02/17/18 14:08 Lactic Acid Level 2.52 MMOL/L (0.50-2.00) *H Progress/Results/Core Measures Suspected Sepsis SIRS Temperature: Pulse: Respiratory Rate: Laboratory Tests 02/17/18 14:08: White Blood Count 22.9H Blood Pressure / Mean: 02/17/18 14:08: Lactic Acid Level 2.52*H Laboratory Tests 02/17/18 14:08: Creatinine 1.13, INR Comment 1.3, Platelet Count 236, Total Bilirubin 0.4 Results/Orders Lab Results Laboratory Tests Test 02/17/18 14:08 Range/Units White Blood Count 22.9 H 4.3-11.0 10^3/uL Red Blood Count 3.53 L 4.35-5.85 10^6/uL Hemoglobin 11.3 L 13.3-17.7 G/DL Hematocrit 33 L 40-54 % Mean Corpuscular Volume 95 80-99 FL Mean Corpuscular Hemoglobin 32 25-34 PG Mean Corpuscular Hemoglobin Concent 34 32-36 G/DL Red Cell Distribution Width 13.5 10.0-14.5 % Platelet Count 236 130-400 10^3/uL Mean Platelet Volume 12.0 H 7.4-10.4 FL Neutrophils (%) (Auto) 93 H 42-75 % Lymphocytes (%) (Auto) 2 L 12-44 % Monocytes (%) (Auto) 4 0-12 % Eosinophils (%) (Auto) 0 0-10 % Basophils (%) (Auto) 0 0-10 % Neutrophils # (Auto) 21.4 H 1.8-7.8 X 10^3 Lymphocytes # (Auto) 0.5 L 1.0-4.0 X 10^3 Monocytes # (Auto) 1.0 0.0-1.0 X 10^3 Eosinophils # (Auto) 0.0 0.0-0.3 10^3/uL Basophils # (Auto) 0.0 0.0-0.1 10^3/uL Neutrophils % (Manual) 73 % Lymphocytes % (Manual) 2 % Monocytes % (Manual) 6 % Eosinophils % (Manual) 0 % Basophils % (Manual) 0 % Band Neutrophils 19 % Blood Morphology Comment NORMAL Prothrombin Time 16.1 H 12.2-14.7 SEC INR Comment 1.3 0.8-1.4 Activated Partial Thromboplast Time 34 24-35 SEC Sodium Level 138 135-145 MMOL/L Potassium Level 3.7 3.6-5.0 MMOL/L Chloride Level 109 H 98-107 MMOL/L Carbon Dioxide Level 19 L 21-32 MMOL/L Anion Gap 10 5-14 MMOL/L Blood Urea Nitrogen 24 H 7-18 MG/DL Creatinine 1.13 0.60-1.30 MG/DL Estimat Glomerular Filtration Rate > 60 BUN/Creatinine Ratio 21 Glucose Level 150 H 70-105 MG/DL Lactic Acid Level 2.52 *H 0.50-2.00 MMOL/L Calcium Level 8.9 8.5-10.1 MG/DL Corrected Calcium 9.3 8.5-10.1 MG/DL Total Bilirubin 0.4 0.1-1.0 MG/DL Aspartate Amino Transf (AST/SGOT) 15 5-34 U/L Alanine Aminotransferase (ALT/SGPT) 15 0-55 U/L Alkaline Phosphatase 59 40-136 U/L Troponin I < 0.30 <0.30 NG/ML Total Protein 6.4 6.4-8.2 GM/DL Albumin 3.5 3.2-4.5 GM/DL My Orders Orders - FERMÍN DAVIS Cbc With Automated Diff (02/17/18 14:10) Comprehensive Metabolic Panel (02/17/18 14:10) Blood Culture (02/17/18 14:10) Sputum Culture (02/17/18 14:10) Urinalysis (02/17/18 14:10) Urine Culture (02/17/18 14:10) Protime With Inr (02/17/18 14:10) Partial Thromboplastin Time (02/17/18 14:10) Chest 1 View, Ap/Pa Only (02/17/18 14:10) Saline Lock/Iv-Start (02/17/18 14:10) Ekg Tracing (02/17/18 14:10) Troponin I (02/17/18 14:10) Vital Signs Adult Sepsis Patie Q15M (02/17/18 14:10) O2 (02/17/18 14:10) Lactic Acid Analyzer (02/17/18 14:10) Ct Head Wo-R/O Stroke (02/17/18 14:20) Manual Differential (02/17/18 14:08) Ns Iv 1000 Ml (Sodium Chloride 0.9%) (02/17/18 14:30) Acetaminophen Tablet (Tylenol Tablet) (02/17/18 14:30) Medications Given in ED Vital Signs/I&O 02/17/18 13:51 Temp 100.4 Pulse 97 Resp 19 B/P (MAP) 131/70 (90) Pulse Ox 93 O2 Delivery Room Air Capillary Refill : Progress Note : Time: 15:00 Progress Note I have seen and evaluated the patient. I've informed him of his laboratory and imaging studies and the need for admission to the hospital. He agrees with plans of care. I spoke to Dr. Spangler at this time and she agrees to accept the patient and recommends IV Rocephin one gram every 24 hours and severe sepsis protocol. ECG EKG : EKG Time: 15:27 Rate: 91 Rhythm: Normal Sinus (PVCs.) Intervals: Normal ECG Comparisson: Unchanged ECG Impression: Normal Diagnostic Imaging Diagonstic Imaging: Xray, CT Plain Films/CT/US/NM/MRI: chest, head Comments NAME: [facility] REC#: [id number] PHYSICIAN: FERMÍN DAVIS CC: FERMÍN DAVIS; WILFREDO GARCIA MD Page 1 of 1 RADIOLOGY REPORT VIA [facility], [facility]. [place], [place] CC: FERMÍN DAVIS; WILFREDO GARCIA MD Page 1 of 1 RADIOLOGY REPORT NAME: [facility] REC#: [id number] PT STATUS: ADM IN : 1935 PHYSICIAN: FERMÍN DAVIS ADMIT DATE: 02/17/18 Signed Date of Exam: 02/17/18 CHEST 1 VIEW, AP/PA ONLY INDICATION: Weakness and cough Frontal chest obtained at 256 hours p.m. and compared to 10/29/2016. Heart is borderline in size. Aorta is tortuous. There is new extensive infiltrate in the left perihilar region and base. The right lung appears clear. There is no pneumothorax or gross pleural fluid. IMPRESSION: New extensive infiltrate in the left midlung and base, suspicious for pneumonia. Followup is recommended. Dictated by: Dictated on workstation # [id number] Dict: 02/17/18 1435 Trans: 02/17/18 160 Interpreted by: WILFREDO GARCIA MD Electronically signed by: WILFREDO GARCIA MD 02/17/181608 NAME: [facility] REC#: [id number] PHYSICIAN: FERMÍN DAVIS CC: FERMÍN DAVIS; AMY URBINA MD Page 1 of 1 RADIOLOGY REPORT VIA [facility], [facility]. [place], [place] CC: FERMÍN DAVIS; AMY URBINA MD Page 1 of 1 RADIOLOGY REPORT NAME: [facility] REC#: [id number] PT STATUS: ADM IN : 1935 PHYSICIAN: FERMÍN DAVIS ADMIT DATE: 02/17/18/4TH Signed Date of Exam: 02/17/18 CT HEAD WO-R/O STROKE INDICATION: Stroke and weakness. COMPARISON: No prior examinations are available for comparison. TECHNIQUE: Multiple contiguous axial images were obtained through the brain without the use of intravenous contrast. FINDINGS: There is prominence of the ventricles and sulci. There is some chronic microvascular ischemic disease. There is no hydrocephalus. There is no midline shift. There is no intracranial mass, hemorrhage, or extra-axial fluid collection. There is no evidence of an acute transcortical infarct. The calvarium is intact. The sinuses and mastoid air cells are clear. IMPRESSION: Atrophy and some chronic microvascular ischemic disease; however, no acute intracranial abnormality. If there is high clinical concern for an acute CVA, further evaluation with MRI should be considered. Dictated by: Dictated on workstation # [id number] Dict: 02/17/18 1439 Trans: 02/17/18 1506 Interpreted by: AMY URBINA MD Electronically signed by: AMY URBINA MD 02/17/18 1506 Reviewed: Reviewed by Wa Departure Communication (Admissions) Time/Spoke to Admitting Phy: 15:00 Dr. Spangler Impression Primary Impression: PNEUMONIA Disposition: ADMITTED INPATIENT Condition: Stable Admissions Decision to Admit Reason: Admit from ER (General) Decision to Admit/Date: Feb 17, 2018 Time/Decision to Admit Time: 15:00 Departure-Patient Inst. Referrals: IRENE BEATTY MD (PCP/Family) Primary Care Physician FERMÍN DAVIS Feb 17, 2018 14:52
--- OUTSIDE RECORDS SUMMARY | 2018-02-17 15:13 | XMS REPORT | Continuity of Care Document ---
Author Author [facility] Organization [facility] Address Unknown Phone Unavailable Allergies Active Description Code Type Severity Reaction Onset Reported/Identified Relationship to Patient Clinical Status Yes amlodipine [id number] Drug Allergy Mild tongue swelling 06/30/2009 Yes benazepril [id number] Drug Allergy Mild tongue swelling 06/30/2009 Yes benazepril [id number] Drug Allergy Mild N/A 10/28/2016 Yes amlodipine [id number] Drug Allergy Moderate TONGUE SWELLING 10/31/2016 Medications [...] Culp Ot K92.0 HEMATEMESIS 01/27/2016 BARTOLO HUFF VICE PRESIDENT FOR INSTRUCTION Ot D64.9 ANEMIA, UNSPECIFIED 02/01/2016 BARTOLO HUFF VICE PRESIDENT FOR INSTRUCTION Ot D64.9 ANEMIA, UNSPECIFIED 02/08/2016 Ot 786.50 CHEST PAIN NOS 02/08/2016 JACI ERNANDEZ, IRENE Downing Ot 285.9 ANEMIA NOS 02/08/2016 ALEXANDER ERNANDEZ, MARCOS Culp Ot V72.84 EXAM PRE-OPERATIVE NOS 02/08/2016 BARTOLO HUFF VICE PRESIDENT FOR INSTRUCTION Ot D64.9 ANEMIA, UNSPECIFIED 02/25/2016 Ot 786.50 CHEST PAIN NOS 02/25/2016 JACI ERNANDEZ, IRENE Downing Ot 285.9 ANEMIA NOS 02/25/2016 ALEXANDER ERNANDEZ, MARCOS Culp Ot V72.84 EXAM PRE-OPERATIVE NOS 02/25/2016 BARTOLO HUFF VICE PRESIDENT FOR INSTRUCTION Ot D64.9 ANEMIA, UNSPECIFIED 02/25/2016 JACI ERNANDEZ, [...] Ot 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 02/27/2016 FELIAS ERNANDEZ, HOLLEY Downing Ot Z87.891 PERSONAL HISTORY OF NICOTINE DEPENDENCE 03/01/2016 JACI ERNANDEZ, IRENE Downing Ot E87.1 HYPO-OSMOLALITY AND HYPONATREMIA 03/08/2016 IRENE BEATTY MD Ot E87.1 HYPO-OSMOLALITY AND HYPONATREMIA 05/08/2016 Ot 786.50 CHEST PAIN NOS 05/08/2016 IRENE BEATTY MD Ot 285.9 ANEMIA NOS 05/08/2016 ALEXANDER ERNANDEZ, MARCOS M Ot V72.84 EXAM PRE-OPERATIVE NOS 05/08/2016 BARTOLO HUFF VICE PRESIDENT FOR INSTRUCTION Ot D64.9 ANEMIA, UNSPECIFIED 05/08/2016 IRENE BEATTY MD Ot E87.1 HYPO-OSMOLALITY AND HYPONATREMIA 05/09/2016 Ot 786.50 CHEST PAIN NOS 05/09/2016 IRENE BEATTY MD Ot 285.9 ANEMIA NOS 05/09/2016 ALEXANDER ERNANDEZ, MARCOS M Ot V72.84 EXAM PRE-OPERATIVE NOS 05/09/2016 BARTOLO HUFF VICE PRESIDENT FOR INSTRUCTION Ot D64.9 ANEMIA, UNSPECIFIED 05/09/2016 IRENE BEATTY [...] 05/09/2016 GERMANIA VIGIL MD Ot Z79.899 OTHER CUSTODIAL (CURRENT) DRUG THERAPY 05/09/2016 GERMANIA VIGIL MD [...] 05/09/2016 GERMANIA VIGIL MD Ot 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 05/09/2016 GERMANIA VIGIL MD [...] IRON DEFICIENCY ANEMIA SECONDARY TO BLOO 11/09/2016 ALEXANDER ERNANDEZ, MARCOS Culp Ot K92.2 GASTROINTESTINAL HEMORRHAGE, UNSPECIFIED 11/16/2016 ALEXANDER ERNANDEZ, MARCOS Culp Ot D50.0 IRON DEFICIENCY ANEMIA SECONDARY TO BLOO 11/16/2016 ALEXANDER ERNANDEZ, MARCOS Culp Ot K92.2 GASTROINTESTINAL HEMORRHAGE, UNSPECIFIED 11/22/2016 ALEXANDER ERNANDEZ, MARCOS Culp Ot J90 PLEURAL EFFUSION, NOT ELSEWHERE CLASSIFI 11/22/2016 MARCOS MUNOZ MD Ot K42.9 UMBILICAL HERNIA WITHOUT OBSTRUCTION OR 11/22/2016 MARCOS MUNOZ MD Ot K44.9 DIAPHRAGMATIC HERNIA WITHOUT OBSTRUCTION 11/22/2016 MARCOS MUNOZ MD Ot K57.30 DVRTCLOS OF LG INT W/O PERFORATION OR AB 11/22/2016 MARCOS MUNOZ MD Ot Z86.010 PERSONAL HISTORY OF COLONIC POLYPS 11/22/2016 MAROCS MUNOZ MD Ot Z86.39 PERSONAL HISTORY OF ENDO, NUTRITIONAL AN 12/03/2016 MARCOS MUNOZ MD Ot J90 PLEURAL EFFUSION, NOT ELSEWHERE CLASSIFI 12/03/2016 MARCOS MUNOZ MD Ot K42.9 UMBILICAL HERNIA WITHOUT OBSTRUCTION OR 12/03/2016 MARCOS MUNOZ MD Ot K44.9 DIAPHRAGMATIC HERNIA WITHOUT OBSTRUCTION 12/03/2016 MARCOS MUNOZ MD Ot K57.30 DVRTCLOS OF LG INT W/O PERFORATION OR AB 12/03/2016 MARCOS MUNOZ MD Ot Z86.010 PERSONAL HISTORY OF COLONIC POLYPS 12/03/2016 MARCOS MUNOZ MD Ot Z86.39 PERSONAL HISTORY OF ENDO, NUTRITIONAL AN 11/29/2017 FERMÍN DAVIS Ot E78.00 PURE HYPERCHOLESTEROLEMIA, UNSPECIFIED 11/29/2017 FERMÍN DAVIS Ot F41.9 ANXIETY DISORDER, UNSPECIFIED 11/29/2017 FERMÍN DAVIS Ot I10 ESSENTIAL (PRIMARY) HYPERTENSION 11/29/2017 ASHKAN DAVISIS Ot K21.9 GASTRO-ESOPHAGEAL REFLUX DISEASE WITHOUT 11/29/2017 ASHKAN DAVISIS Ot K57.32 DVTRCLI OF LG INT W/O PERFORATION OR ABS 11/29/2017 FERMÍN DAVIS Ot R11.2 NAUSEA WITH VOMITING, UNSPECIFIED 11/29/2017 FERMÍN DAVIS Ot Z87.01 PERSONAL HISTORY OF PNEUMONIA (RECURRENT 11/29/2017 FERMÍN DAVIS Ot Z87.19 PERSONAL HISTORY OF OTHER DISEASES OF TH 11/29/2017 FERMÍN DAVIS Ot Z87.891 PERSONAL HISTORY OF NICOTINE DEPENDENCE 11/29/2017 FERMÍN DAVIS Ot Z88.8 ALLERGY STATUS TO OTH DRUG/MEDS/BIOL SUB Procedures Code Description Performed By Performed On [id number] EXCISION OF STOMACH, PYLORUS, ENDO, DIAG 10/29/2016 Results Test Result Range RED CELLS LEUKO REDUCED AS1 - 01/03/16 15:34 RED CELLS LEUKO REDUCED AS1 TRANSFUSED 01/03/16 194 NR Blood type T Indirect antibody screen panel - 01/03/16 15:34 ABO+Rh group AP NRG Transfusion band number [id number] NR Blood group antibody screen NEGATIVE NRG Complete blood count (CBC) with automated [...] CELLS LEUKO REDUCED AS1 TRANSFUSED 10/28/16 1204 [facility] Blood type T Indirect antibody screen panel - 10/28/16 10:00 ABO+Rh group AP [facility] Transfusion band number [id number] [facility] Blood group antibody screen NEGATIVE [facility] PT panel in platelet poor plasma by [...] plasma albumin measurement (mass/volume) 3.3 g/dL 3.2-4.5 Complete blood count (CBC) with automated white blood cell (WBC) differential - 11/27/17 13:11 Blood leukocytes automated count (number/volume) 7.7 10*3/uL 4.3-11.0 Blood erythrocytes automated count (number/volume) 3.63 10*6/uL 4.35-5.85 Venous blood hemoglobin measurement (mass/volume) 12.0 g/dL 13.3-17.7 Blood hematocrit (volume fraction) 35 % 40-54 Automated erythrocyte mean corpuscular volume 96 [foz_us] 80-99 Automated erythrocyte mean corpuscular hemoglobin (mass per erythrocyte) 33 pg 25-34 Automated erythrocyte mean corpuscular hemoglobin concentration measurement ( mass/volume) 34 g/dL 32-36 Automated erythrocyte distribution width ratio 12.7 % 10.0-14.5 Automated blood platelet count (count/volume) 196 10*3/uL 130-400 Automated blood platelet mean volume measurement 12.1 [foz_us] 7.4-10.4 Automated blood neutrophils/100 leukocytes 71 % 42-75 Automated blood lymphocytes/100 leukocytes 12 % 12-44 Blood monocytes/100 leukocytes 10 % 0-12 Automated blood eosinophils/100 leukocytes 7 % 0-10 Automated blood basophils/100 leukocytes 0 % 0-10 Blood neutrophils automated count (number/volume) 5.5 10*3 1.8-7.8 Blood lymphocytes automated count (number/volume) 0.9 10*3 1.0-4.0 Blood monocytes automated count (number/volume) 0.8 10*3 0.0-1.0 Automated eosinophil count 0.6 10*3/uL 0.0-0.3 Automated blood basophil count (count/volume) 0.0 10*3/uL 0.0-0.1 Comprehensive metabolic panel - 11/27/17 13:11 Serum or plasma sodium measurement (moles/volume) 140 mmol/L 135-145 Serum or plasma potassium measurement (moles/volume) 3.3 mmol/L 3.6-5.0 Serum or plasma chloride measurement (moles/volume) 105 mmol/L 98-107 Carbon dioxide 27 mmol/L 21-32 Serum or plasma anion gap determination (moles/volume) 8 mmol/L 5-14 Serum or plasma urea nitrogen measurement (mass/volume) 16 mg/dL 7-18 Serum or plasma creatinine measurement (mass/volume) 1.09 mg/dL 0.60-1.30 Serum or plasma urea nitrogen/creatinine mass ratio 15 NRG Serum or plasma creatinine measurement with calculation of estimated glomerular filtration rate > NRG Serum or plasma glucose measurement (mass/volume) 122 mg/dL 70-105 Serum or plasma calcium measurement (mass/volume) 9.1 mg/dL 8.5-10.1 Serum or plasma total bilirubin measurement (mass/volume) 0.4 mg/dL 0.1-1.0 Serum or plasma alkaline phosphatase measurement (enzymatic activity/volume) 60 U/L 40-136 Serum or plasma aspartate aminotransferase measurement (enzymatic activity/ volume) 17 U/L 5-34 Serum or plasma alanine aminotransferase measurement (enzymatic activity/volume ) 15 U/L 0-55 Serum or plasma protein measurement (mass/volume) 6.5 g/dL 6.4-8.2 Serum or plasma albumin measurement (mass/volume) 3.5 g/dL 3.2-4.5 Serum or plasma amylase measurement (enzymatic activity/volume) - 11/27/17 13: 11 Serum or plasma amylase measurement (enzymatic activity/volume) 48 U /L 25-125 Lipase - 11/27/17 13:11 Lipase 21 U/L 8-78 Complete urinalysis with reflex to culture - 11/27/17 15:05 Urine color determination YELLOW NRG Urine clarity determination CLEAR NRG Urine pH measurement by test strip 8 5-9 Specific gravity of urine by test strip 1.010 1.016- 1.022 Urine protein assay by test strip, semi-quantitative NEGATIVE NEGATIVE Urine glucose detection by automated test [...] erythrocyte count by microscopy (number/high power field) RARE NRG Automated urine sediment leukocyte count by microscopy (number/high power field ) RARE NRG Bacteria detection in urine sediment by light microscopy NEGATIVE NRG Squamous epithelial cells detection in urine sediment by light microscopy NONE NRG Crystals detection in urine sediment by light microscopy NONE NRG Casts detection in urine sediment by light microscopy NONE NRG Mucus detection in urine sediment by light microscopy NEGATIVE NRG Complete urinalysis with reflex to culture NO NRG Renal epithelial cells detection in urine sediment by light microscopy NONE NRG Complete blood count (CBC) with automated white blood cell (WBC) differential - 02/17/18 14:08 Blood leukocytes automated count (number/volume) 22.9 10*3/uL 4.3-11.0 Blood erythrocytes automated count (number/volume) 3.53 10*6/uL 4.35-5.85 Venous blood hemoglobin measurement (mass/volume) 11.3 g/dL 13.3-17.7 Blood hematocrit (volume fraction) 33 % 40-54 Automated erythrocyte mean corpuscular volume 95 [foz_us] 80-99 Automated erythrocyte mean corpuscular hemoglobin (mass per erythrocyte) 32 pg 25-34 Automated erythrocyte mean corpuscular hemoglobin concentration measurement ( mass/volume) 34 g/dL 32-36 Automated erythrocyte distribution width ratio 13.5 % 10.0-14.5 Automated blood platelet count (count/volume) 236 10*3/uL 130-400 Automated blood platelet mean volume measurement 12.0 [foz_us] 7.4-10.4 Automated blood neutrophils/100 leukocytes 93 % 42-75 Automated blood lymphocytes/100 leukocytes 2 % 12-44 Blood monocytes/100 leukocytes 4 % 0-12 Automated blood eosinophils/100 leukocytes 0 % 0-10 Automated blood basophils/100 leukocytes 0 % 0-10 Blood neutrophils automated count (number/volume) 21.4 10*3 1.8-7.8 Blood lymphocytes automated count (number/volume) 0.5 10*3 1.0-4.0 Blood monocytes automated count (number/volume) 1.0 10*3 0.0-1.0 Automated eosinophil count 0.0 10*3/uL 0.0-0.3 Automated blood basophil count (count/volume) 0.0 10*3/uL 0.0-0.1 PT panel in platelet poor plasma by coagulation assay - 02/17/18 14:08 Prothrombin time (PT) in platelet poor plasma by coagulation assay 16.1 s 12.2-14.7 INR in platelet poor plasma or blood by coagulation assay 1.3 0.8-1.4 Activated partial thromboplastin time (aPTT) in platelet poor plasma bycoagulation assay - 02/17/18 14:08 Activated partial thromboplastin time (aPTT) in platelet poor plasma bycoagulation assay 34 s 24-35 Blood lactic acid measurement (moles/volume) - 02/17/18 14:08 Blood lactic acid measurement (moles/volume) 2.52 mmol/L 0.50-2.00 Comprehensive metabolic panel - 02/17/18 14:08 Serum or plasma sodium measurement (moles/volume) 138 mmol/L 135-145 Serum or plasma potassium measurement (moles/volume) 3.7 mmol/L 3.6-5.0 Serum or plasma chloride measurement (moles/volume) 109 mmol/L 98-107 Carbon dioxide 19 mmol/L 21-32 Serum or plasma anion gap determination (moles/volume) 10 mmol/L 5-14 Serum or plasma urea nitrogen measurement (mass/volume) 24 mg/dL 7-18 Serum or plasma creatinine measurement (mass/volume) 1.13 mg/dL 0.60-1.30 Serum or plasma urea nitrogen/creatinine mass ratio 21 NRG Serum or plasma creatinine measurement with calculation of estimated glomerular filtration rate > NRG Serum or plasma glucose measurement (mass/volume) 150 mg/dL 70-105 Serum or plasma calcium measurement (mass/volume) 8.9 mg/dL 8.5-10.1 Serum or plasma total bilirubin measurement (mass/volume) 0.4 mg/dL 0.1-1.0 Serum or plasma alkaline phosphatase measurement (enzymatic activity/volume) 59 U/L 40-136 Serum or plasma aspartate aminotransferase measurement (enzymatic activity/ volume) 15 U/L 5-34 Serum or plasma alanine aminotransferase measurement (enzymatic activity/volume ) 15 U/L 0-55 Serum or plasma protein measurement (mass/volume) 6.4 g/dL 6.4-8.2 Serum or plasma albumin measurement (mass/volume) 3.5 g/dL 3.2-4.5 CALCIUM CORRECTED 9.3 mg/dL 8.5-10.1 Serum or plasma troponin i.cardiac measurement (mass/volume) - 02/17/18 14:08 Serum or plasma troponin i.cardiac measurement (mass/volume) < ng/ mL <0.30 Blood manual differential performed detection - 02/17/18 14:08 Blood monocytes/100 leukocytes 6 % NRG Manual blood segmented neutrophils/100 leukocytes 73 % NRG Blood band neutrophils/100 leukocytes 19 % NRG Manual blood lymphocytes/100 leukocytes 2 % NRG Manual eosinophils/100 leukocytes in nose 0 % NRG Manual blood basophils/100 leukocytes 0 % NRG Blood erythrocyte morphology finding identification NORMAL NRG Encounters ACCT No. Visit Date/Time Discharge Status Pt. Type Provider Facility Loc./Unit Complaint [id number] 11/27/2017 12:43:00 11/27/2017 16:06:00 DIS Outpatient FERMÍN DAVIS [facility] ER DIARRHEA,VOMITING [id number] 11/07/2016 07:03:00 11/07/2016 15:45:00 DIS Outpatient MARCOS MUNOZ MD [facility] ENDO CHRONIC GERD, DYSPHAGIA [id number] 11/05/2016 09:57:00 11/05/2016 13:32:00 DIS Outpatient MARCOS MUNOZ MD [facility] ENDO HX POLYPS/IRON DEF ANEMIA/GI BLOOD LOSS [id number] 11/01/2016 07:51:00 11/01/2016 23:59:59 CLS Outpatient MARCOS MUNOZ MD [facility] RAD BILAT LOWER ABD PAIN R10.31 [id number] 10/31/2016 05:35:00 10/31/2016 14:54:00 DIS Outpatient MARCOS MUNOZ MD [facility] PREOP HX POLYPS/IRON DEF ANEMIA/GI BLOOD LOSS [id number] 10/28/2016 10:30:00 10/29/2016 16:52:00 DIS Inpatient MARLEEN CARBONE DO [facility] ICU ANEMIA, ELEVATED TROPONIN [id number] 05/08/2016 23:20:00 05/09/2016 01:01:00 DIS Emergency YARITZA ERNANDEZ, GERMANIA Small [facility] ER FALL,HIT HEAD,INJURED BOTH ARMS [id number] 02/25/2016 13:46:00 02/27/2016 17:55:00 DIS Inpatient FELISA ERNANDEZ, HOLLEY Downing [facility] 4TH RLL PNEUMONIA,ANXIETY [id number] 02/08/2016 08:36:00 02/08/2016 23:59:59 CLS Outpatient IRNEE BEATTY MD [facility] HYPONATREMIA [id number] 01/05/2016 07:33:00 01/05/2016 10:20:00 DIS Outpatient MARCOS MUNOZ MD [facility] BLACK STOOL;GERD [id number] 01/04/2016 06:06:00 01/04/2016 15:05:00 DIS Outpatient ALEXANDER ERNANDEZ, MARCOS Culp [facility] PREOP BLACK TAR STOOLS; GERD [id number] 01/03/2016 15:03:00 01/03/2016 23:59:59 CLS Outpatient HUFF BARTOLO Migel TORRES [facility] ANEMIA/HGB 8.2 [id number] 05/25/2013 06:03:00 05/25/2013 09:30:00 DIS Outpatient MARCOS MUNOZ MD [facility] BLOOD IN STOOL [id number] 05/20/2013 07:17:00 05/20/2013 23:59:59 CLS Outpatient MARCOS MUNOZ MD [facility] PREOP BLOOD IN STOOL [id number] 04/17/2013 12:52:00 04/17/2013 23:59:59 CLS Outpatient JACI ERNANDEZ, IRENE Downing [facility] LAB ANEMIA [id number] 02/17/2018 14:23:00 Document Registration [id number] 04/24/2011 11:48:00 Document Registration
[2018-02-17] MEDS ORDERED: cefTRIAXone FOR IV USE 1,000 MG in NS (IVPB) 50 ML IV ONE (15:45)
[2018-02-17 16:08] VITALS: BP 120/58
[2018-02-17] MEDS ORDERED: MILK OF MAGNESIA 400 MG/5 ML 30 ML UDC PO PRN (16:15)
[2018-02-17] MEDS ORDERED: ACETAMINOPHEN 500 MG TAB (TYLENOL) PO PRN (16:15)
[2018-02-17] MEDS ORDERED: MELATONIN 3 MG TABLET PO PRN (16:15)
[2018-02-17] MEDS ORDERED: BENZONATATE 100 MG (TESSALON) CAPSULE PO PRN (16:15)
[2018-02-17] MEDS ORDERED: ONDANSETRON 4 MG/2 ML (SDV) Z0FRAN IV PRN (16:15)
[2018-02-17] MEDS ORDERED: ANTACID SUSP 30 ML UDC (MYLANTA) PO PRN (16:15)
--- NOTE | 2018-02-17 16:16 | History & Physical-Hospitalist ---
History of Present Illness HPI/Chief Complaint Pt is an 82yoCM with a PMH of HTN who presented to the ER with CC of cough and fever. He states he felt well lsat night when he went to be but this morning he woke up with fever and chills. He then started coughing as well. He denies any sputum. His daughter checks on him daily and she noticed he as shivering when she saw him for breakfast this morning. He brother called him at 10am and also thought he did not sounds right so the daughter returned to his house and decided to bring him to the ER for evaluation. He denies any myalgias, abd pain , sore throat, runny nose, sick contacts, or chest pain. Source: patient, family Exam Limitations: no limitations Date Seen 02/17/18 Time Seen by a Provider: 16:11 Attending Physician Jasmeet Spangler MD PCP Everardo Sorenson MD Referring Physician Date of Admission Feb 17, 2018 at 3:00 pm Home Medications & Allergies Home Medications Reviewed patient Home Medication Reconciliation performed by pharmacy medication reconciliations registered pharmacy technician and/or nursing. Patients Allergies have been reviewed. Allergies Allergies Coded Allergies amlodipine (Verified Allergy, Intermediate, TONGUE SWELLING, 10/31/16) Past Ykpjmot-Fjkfbd-Tbjzru Hx Past Med/Social Hx: Reviewed Nursing Past Med/Soc Hx Patient Social History Marrital Status: Employed/Student: retired Alcohol Use: Denies Use Recreational Drug Use: No Smoking Status: Former Smoker Former Smoker, Quit: May 13, 1980 Type Used: Cigarettes 2nd Hand Smoke Exposure: No Recent Foreign Travel: No Contact w/other who traveled: No Recent Hopitalizations: No Recent Infectious Disease Expo: No Immunizations Up To Date Tetanus Booster (TDap): Unknown Date of Pneumonia Vaccine: Feb 12, 2011 Date of Influenza Vaccine: Feb 29, 2016 Seasonal Allergies Seasonal Allergies: Yes Past Medical History Surgeries: Orthopedic Respiratory: COPD, Pneumonia Cardiac: High Cholesterol, Hypertension Reproductive: No Sexually Transmitted Disease: No HIV/AIDS: No Genitourinary: Prostate Problems Gastrointestinal: Gastroesophageal Reflux, Gastrointestinal Bleed, Ulcer Musculoskeletal: Arthritis Loss of Vision: Bilateral Hearing Impairment: Denies Psychosocial: Anxiety History of Blood Disorders: No Adverse Reaction to Blood [place]: No (HAS HAD BLOOS WITH NO REACTION) Family History Reviewed Nursing Family Hx No Pertinent Family Hx Review of Systems Constitutional: chills, fever EENTM: No blurred vision, No double vision, No nose congestion, No throat pain Respiratory: cough; No dyspnea on exertion, No phlegm, No short of breath, No wheezing Cardiovascular: No chest pain, No edema, No palpitations Gastrointestinal: No abdominal pain, No constipation, No diarrhea, No nausea, No vomiting Genitourinary: No dysuria, No frequency Musculoskeletal: No joint pain, No muscle pain Skin: No lesions, No rash Psychiatric/Neurological: Denies Headache, Denies Numbness, Denies Tingling Physical Exam Physical Exam Vital Signs Vital Signs - First Documented 02/17/18 13:51 Temp 100.4 Pulse 97 Resp 19 B/P (MAP) 131/70 (90) Pulse Ox 93 O2 Delivery Room Air Capillary Refill : Less Than 3 Seconds Height, Weight, BMI Height: 5'7.00" Weight: 148lbs. 3.2oz. 67.588188pa; 25.06 BMI Method:Stated General Appearance: No Apparent Distress, WD/WN HEENT: PERRL/EOMI, Moist Mucous Membranes Neck: Non Tender, Supple Respiratory: Lungs Clear, No Respiratory Distress Cardiovascular: Regular Rate, Rhythm, No Murmur Gastrointestinal: Normal Bowel Sounds, Non Tender, Soft Extremity: Normal Capillary Refill, No Calf Tenderness Neurologic/Psychiatric: Alert, Oriented x3, Normal Mood/Affect Skin: Normal Color, Warm/Dry Results Results/Procedures Labs Laboratory Tests 02/17/18 14:08 Patient resulted labs reviewed. Assessment/Plan Admission Diagnosis Severe Sepsis Admission Status: Inpatient Order (span 2 midnights) Reason for Inpatient Admission: IV abx, will likely take more than two midnight to stabilze for discharge Diagnosis/Problems Diagnosis/Problems (1) Severe sepsis Status: Acute Assessment & Plan: Leukocytosis with fever and tachycardia Lactic elevated BP normal so no need from 30cc/kg bolus Blood cultures drawn in ER CXR consistent with PNA CAP coverage with Rocephin and Azithro Probiotics started with abx (2) CAP (community acquired pneumonia) Assessment & Plan: Continue on Rocephin and Azithro Sputum culture Qualifiers: Laterality: left Lung location: unspecified part of lung Qualified Codes : J18.9 - Pneumonia, unspecified organism (3) Essential (primary) hypertension Assessment & Plan: BP WNL for age currently Will trend and allow for higher BPs given sepsis DAVID,JASMEET M MD Feb 17, 2018 4:16 pm
[2018-02-17 16:29] LABS: BILIRUBIN,URINE NEGATIVE (NEGATIVE); CLARITY,URINE CLEAR; COLOR,URINE YELLOW; GLUCOSE, URINE (UA) NEGATIVE (NEGATIVE); KETONES,URINE NEGATIVE (NEGATIVE); LEUKOCYTE ESTERASE ,URINE NEGATIVE (NEGATIVE); NITRITE,URINE NEGATIVE (NEGATIVE); PH,URINE 6 (5-9); PROTEIN,URINE 1+ (NEGATIVE); UROBILINOGEN,URINE NORMAL (NORMAL)
[2018-02-17] MEDS ORDERED: AMLO10TA6 PO (16:29)
[2018-02-17] MEDS ORDERED: ALPR0.5T7 PO (16:29)
[2018-02-17] MEDS ORDERED: TAMS0.4C2 PO (16:30)
[2018-02-17] MEDS ORDERED: FLU QUADRIvalent (5+ YOA) 2018-2019 (AFLURIA) 0.5 ML IM ONE (16:30)
[2018-02-17] MEDS ORDERED: AZITHROMYCIN INJECTION 500 MG in NS (IVPB) 250 ML IV SCH (16:30)
[2018-02-17] MEDS ORDERED: CATHETER FLUSH 10 ML SYR IV PRN (16:30)
[2018-02-17] MEDS ORDERED: LISI40TA PO (16:30)
[2018-02-17] MEDS ORDERED: PANT40TA2 PO (16:30)
[2018-02-17] MEDS ORDERED: METO-387 PO (16:30)
[2018-02-17] MEDS ORDERED: DORZ10DR27 OU (16:34)
[2018-02-17 16:36] LABS: BACTERIA,URINE NEGATIVE /HPF; WBC,URINE RARE /HPF
[2018-02-17 16:40] VITALS: BP 131/70
[2018-02-17] MEDS: NS IV 1000 ML 1,000 ML IV SCH (16:54)
[2018-02-17] MEDS: LACTOBACILLUS ACIDOPHILUS (PROBIOTIC) CAPSULE PO SCH (16:55)
[2018-02-17] MEDS: RT-ALBUTEROL/IPRATROPIUM 3 ML (DUONEB) VIAL INH SCH ×2 (18:52→21:47)
[2018-02-17 20:25] VITALS: BP 129/65
[2018-02-18] VITALS (13 sets, daily range): BP systolic 97–160; BP diastolic 58–102
[2018-02-18] MEDS: ACETAMINOPHEN 325 MG TABLET PO PRN ×2 (00:27→11:36)
[2018-02-18] MEDS: RT-ALBUTEROL/IPRATROPIUM 3 ML (DUONEB) VIAL INH SCH ×6 (01:39→21:59)
[2018-02-18] MEDS: NS IV 1000 ML 1,000 ML IV SCH ×4 (01:44→18:48)
[2018-02-18] MEDS: LACTOBACILLUS ACIDOPHILUS (PROBIOTIC) CAPSULE PO SCH ×3 (06:20→16:34)
[2018-02-18 06:45] LABS: BASOPHILS % (AUTO) 0 % (0-10); EOSINOPHILS % (AUTO) 0 % (0-10); HEMATOCRIT 32 % (40-54); HEMOGLOBIN 10.5 G/DL (13.3-17.7); LYMPHOCYTES # (AUTO) 0.8 X 10^3 (1.0-4.0); LYMPHOCYTES % (AUTO) 5 % (12-44); MEAN CORPUSCULAR HEMOGLOBIN 31 PG (25-34); MEAN CORPUSCULAR HGB CONC 33 G/DL (32-36); MEAN CORPUSCULAR VOLUME 95 FL (80-99); MEAN PLATELET VOLUME 12.4 FL (7.4-10.4); MONOCYTES # (AUTO) 0.9 X 10^3 (0.0-1.0); MONOCYTES % (AUTO) 5 % (0-12); NEUTROPHILS # (AUTO) 15.3 X 10^3 (1.8-7.8); NEUTROPHILS % (AUTO) 90 % (42-75); PLATELET COUNT 233 10^3/uL (130-400); RED BLOOD COUNT 3.37 10^6/uL (4.35-5.85); RED CELL DISTRIBUTION WIDTH 13.8 % (10.0-14.5)
[2018-02-18 07:10] LABS: ALANINE AMINOTRANSFERASE 16 U/L (0-55); ALBUMIN 3.3 GM/DL (3.2-4.5); ALKALINE PHOSPHATASE 54 U/L (40-136); BILIRUBIN,TOTAL 0.4 MG/DL (0.1-1.0); BUN/CREATININE RATIO 17; CALCIUM 8.8 MG/DL (8.5-10.1); CARBON DIOXIDE 19 MMOL/L (21-32); CHLORIDE 112 MMOL/L (98-107); CREATININE SERUM 0.87 MG/DL (0.60-1.30); GFR ESTIMATED > 60; GLUCOSE 117 MG/DL (70-105); POTASSIUM 3.6 MMOL/L (3.6-5.0); SODIUM 140 MMOL/L (135-145); TOTAL PROTEIN 6.2 GM/DL (6.4-8.2)
[2018-02-18] MEDS ORDERED: cefTRIAXone FOR IV USE 1,000 MG in NS (IVPB) 50 ML IV SCH (09:00)
[2018-02-18] MEDS ORDERED: AZITHROMYCIN 250 MG TAB (ZITHROMAX) PO SCH (09:00)
--- NOTE | 2018-02-18 10:15 | Progress Note-Hospitalist ---
Subjective HPI/CC On Admission Date Seen by Provider: Feb 18, 2018 Time Seen by Provider: 10:12 Pt is an 82yoCM with a PMH of HTN who presented to the ER with CC of cough and fever. He states he felt well lsat night when he went to be but this morning he woke up with fever and chills. He then started coughing as well. He denies any sputum. His daughter checks on him daily and she noticed he as shivering when she saw him for breakfast this morning. He brother called him at 10am and also thought he did not sounds right so the daughter returned to his house and decided to bring him to the ER for evaluation. He denies any myalgias, abd pain , sore throat, runny nose, sick contacts, or chest pain. Subjective/Events-last exam Pt reports being tired but feeling better. Poor appetite today. Focused Exam Lactate Level 02/17/18 14:08: Lactic Acid Level 2.52*H 02/17/18 16:28: Lactic Acid Level 1.49 Objective Exam Vital Signs Vital Signs Date Time Temp Pulse Resp B/P (MAP) Pulse Ox O2 Delivery O2 Flow Rate FiO2 02/18/18 12:13 99.3 02/18/18 11:25 124 22 160/88 (112) 96 Nasal Cannula 2.00 Capillary Refill : Less Than 3 SecondsLess Than 3 Seconds General Appearance: No Apparent Distress, WD/WN Respiratory: Lungs Clear, No Respiratory Distress Cardiovascular: Regular Rate, Rhythm, Systolic Murmur Gastrointestinal: Normal Bowel Sounds, Soft Extremity: No Calf Tenderness, No Pedal Edema Neurologic/Psychiatric: Alert, Oriented x3 Results/Procedures Lab Laboratory Tests 02/18/18 06:11 Patient resulted labs reviewed. Assessment/Plan Assessment and Plan Assess & Plan/Chief Complaint Severe Sepsis/Pneumonia Diagnosis/Problems Diagnosis/Problems (1) Severe sepsis Status: Acute Assessment & Plan: Improving Leukocytosis trending down, remained febrile overnight Lactic acidosis resolved Flu swab pending Blood cultures pending CXR consistent with PNA CAP coverage with Rocephin and Azithro Probiotics started with abx (2) CAP (community acquired pneumonia) Assessment & Plan: Continue on Rocephin and Azithro Sputum culture Qualifiers: Laterality: left Lung location: unspecified part of lung Qualified Codes : J18.9 - Pneumonia, unspecified organism (3) Essential (primary) hypertension Assessment & Plan: Will trend and allow for higher BPs given sepsis Clinical Quality Measures DVT/VTE Risk/Contraindication: Risk Factor Score Per Nursin RFS Level Per Nursing on Admit: 3=High JASMEET HERNANDEZ MD Feb 18, 2018 10:15 am
[2018-02-18] MEDS: RT-ALBUTEROL/IPRATROPIUM 3 ML (DUONEB) VIAL INH PRN (17:27)
[2018-02-18] MEDS ORDERED: meTOprolol 5 MG/5 ML (LOPRESSOR) VIAL IV STA (18:05)
[2018-02-18] MEDS ORDERED: LORazepam INJ 2 MG/ML (ATIVAN) VIAL IVP PRN (18:15)
[2018-02-18 19:01] LABS: ABG BASE EXCESS -6.9 MMOL/L (-2.5-2.5); ABG OXYGEN SATURATION 99 % (94-100); ABG PCO2 27 MMHG (35-45); ABG PH 7.41 (7.37-7.43); ABG PO2 125 MMHG (79-93); ABG TCO2 17.6 MMOL/L (21.0-31.0)
[2018-02-18 19:03] LABS: ALLENS TEST YES-POS; INSPIRED O2 60%; PATIENT TEMP 99.6; VENTILATOR NO
[2018-02-19] VITALS (28 sets, daily range): BP systolic 89–133; BP diastolic 62–97
[2018-02-19] MEDS: RT-ALBUTEROL/IPRATROPIUM 3 ML (DUONEB) VIAL INH SCH ×6 (02:05→21:44)
[2018-02-19] MEDS: NS IV 1000 ML 1,000 ML IV SCH ×2 (02:53→18:18)
[2018-02-19 03:53] LABS: BASOPHILS % (AUTO) 0 % (0-10); EOSINOPHILS # (AUTO) 0.3 10^3/uL (0.0-0.3); EOSINOPHILS % (AUTO) 2 % (0-10); HEMATOCRIT 33 % (40-54); HEMOGLOBIN 11.3 G/DL (13.3-17.7); LYMPHOCYTES # (AUTO) 0.7 X 10^3 (1.0-4.0); LYMPHOCYTES % (AUTO) 4 % (12-44); MEAN CORPUSCULAR HEMOGLOBIN 32 PG (25-34); MEAN CORPUSCULAR HGB CONC 34 G/DL (32-36); MEAN CORPUSCULAR VOLUME 95 FL (80-99); MEAN PLATELET VOLUME 12.3 FL (7.4-10.4); MONOCYTES # (AUTO) 1.4 X 10^3 (0.0-1.0); MONOCYTES % (AUTO) 7 % (0-12); NEUTROPHILS # (AUTO) 16.7 X 10^3 (1.8-7.8); NEUTROPHILS % (AUTO) 88 % (42-75); PLATELET COUNT 178 10^3/uL (130-400); RED BLOOD COUNT 3.49 10^6/uL (4.35-5.85); RED CELL DISTRIBUTION WIDTH 14.2 % (10.0-14.5)
[2018-02-19 04:15] LABS: CARBON DIOXIDE 14 MMOL/L (21-32); CHLORIDE 109 MMOL/L (98-107); POTASSIUM 4.3 MMOL/L (3.6-5.0); SODIUM 137 MMOL/L (135-145)
[2018-02-19 04:16] LABS: ALANINE AMINOTRANSFERASE 22 U/L (0-55); ALBUMIN 3.3 GM/DL (3.2-4.5); ALKALINE PHOSPHATASE 61 U/L (40-136); BILIRUBIN,TOTAL 0.5 MG/DL (0.1-1.0); BUN/CREATININE RATIO 14; CREATININE SERUM 1.12 MG/DL (0.60-1.30); GFR ESTIMATED > 60; GLUCOSE 178 MG/DL (70-105); TOTAL PROTEIN 6.6 GM/DL (6.4-8.2)
[2018-02-19] MEDS ORDERED: FUROSEMIDE 40 MG/4 ML INJ (LASIX) IVP ONE (06:45)
[2018-02-19] MEDS ORDERED: meTOprolol 5 MG/5 ML (LOPRESSOR) VIAL IV ONE (06:45)
[2018-02-19] MEDS: LACTOBACILLUS ACIDOPHILUS (PROBIOTIC) CAPSULE PO SCH ×3 (07:39→18:17)
[2018-02-19] MEDS ORDERED: PIPERACILLIN/TAZO 4.5 GM/NS 100 ML IV NR ×2 (08:17)
--- NOTE | 2018-02-19 08:31 | Diagnostic Imaging Report ---
INDICATION: Respiratory distress, atrial fibrillation with rapid ventricular response. TECHNIQUE: Single view chest 7:11 AM. CORRELATION STUDY: 02/17/2018 FINDINGS: Opacification of both lung ling, left greater than right, persists. The right lung predominately involving the lung base. This appears adversely changed from prior study. Heart size enlarged. Mediastinum mildly prominent. Small pleural effusions are present. IMPRESSION: 1. Increasing bilateral areas of lung opacification, left greater than right. Could be attributed to underlying edema versus consolidating pneumonia. Followup imaging is recommended. Dictated by: Dictated on workstation # [id number]
--- NOTE | 2018-02-19 08:54 | Progress Note-Hospitalist ---
Subjective HPI/CC On Admission Date Seen by Provider: Feb 19, 2018 Time Seen by Provider: 08:49 Pt is an 82yoCM with a PMH of HTN who presented to the ER with CC of cough and fever. He states he felt well lsat night when he went to be but this morning he woke up with fever and chills. He then started coughing as well. He denies any sputum. His daughter checks on him daily and she noticed he as shivering when she saw him for breakfast this morning. He brother called him at 10am and also thought he did not sounds right so the daughter returned to his house and decided to bring him to the ER for evaluation. He denies any myalgias, abd pain , sore throat, runny nose, sick contacts, or chest pain. Subjective/Events-last exam Pt reports feeling tired still but breathing better on BiPAP. Events from last night reviewed. Worsening respiratory status requiring NIPPV and ICU transfer. Focused Exam Lactate Level 02/19/18 08:15: Lactic Acid Level 3.62*H 02/19/18 10:25: Lactic Acid Level 2.12*H Lactic Acid Level Objective Exam Vital Signs Vital Signs Date Time Temp Pulse Resp B/P (MAP) Pulse Ox O2 Delivery O2 Flow Rate FiO2 02/21/18 11:00 96 26 108/74 (85) Vapotherm 85.00 35.00 02/21/18 10:55 99 80 02/21/18 08:00 99.2 Capillary Refill : Less Than 3 SecondsLess Than 3 Seconds General Appearance: No Apparent Distress, WD/WN Respiratory: No Accessory Muscle Use, Rhonci, Other (on BiPAP) Cardiovascular: No Murmur, Tachycardia Gastrointestinal: Normal Bowel Sounds, Non Tender, Soft Neurologic/Psychiatric: Alert, Oriented x3 Skin: Normal Color, Warm/Dry Results/Procedures Lab Laboratory Tests 02/21/18 02:59 Patient resulted labs reviewed. Assessment/Plan Assessment and Plan Assess & Plan/Chief Complaint Severe Sepsis/Pneumonia Diagnosis/Problems Diagnosis/Problems (1) Severe sepsis Status: Acute Assessment & Plan: White count up today slightly Remains febrile Flu swab negative Will get PCR Blood cultures NGTD CXR consistent with PNA- worsened today Broaden antibiotics to Vanc/Zosyn; added tamiflu as well Probiotics started with abx (2) CAP (community acquired pneumonia) Assessment & Plan: Continue Vanc and Zosyn Sputum culture Qualifiers: Laterality: left Lung location: unspecified part of lung Qualified Codes : J18.9 - Pneumonia, unspecified organism (3) Essential (primary) hypertension Assessment & Plan: Will trend and allow for higher BPs given sepsis Resume metoprolol for tachycardia (4) Anxiety Status: Acute Assessment & Plan: Resume home Xanax to avoid withdrawal Clinical Quality Measures DVT/VTE Risk/Contraindication: Risk Factor Score Per Nursin RFS Level Per Nursing on Admit: 3=High JASMEET HERNANDEZ MD Feb 19, 2018 8:54 am
[2018-02-19] MEDS ORDERED: VANCOMYCIN INJECTION 1,500 MG in NS IV 500 ML 500 ML IV NR (09:00)
[2018-02-19] MEDS: OSELTAMIVIR 30 MG (TAMIFLU) CAPSULE PO SCH ×2 (09:45→20:35)
--- NOTE | 2018-02-19 10:16 | Consultation-Cardiology ---
HPI-Cardiology Cardiology Consultation: Date of Consultation 02/19/18 Time Seen by a Provider: 09:40 Date of Admission Attending Physician Brenda Spangler MD Admitting Physician Everardo Sorenson MD Consulting Physician ANTOINE FALLON MD, MA, FACP, FACC, [facility] [place], CCD[facility] Physician requesting consult: Dr Spangler HPI: Chief Complaint: Reason for consultation: Shortness of breath, elevated BNP HPI: 82 yo man admitted with increasing malaise, shaking chills, feverish feeling, shortness of breath and cough productive of small amounts of yellowish sputum. Diagnosed with pneumonia and septicemia and treated accordingly. Worsening resp status and found to have elevated BNP for which we were asked to see him in consult. Suffers from poor recall, but denies cp or palp or syncope or ankle swelling in the recent past Review of Systems-Cardiology Review of Systems Constitutional: As described under HPI Eyes: No vision change Ears/Nose/Throat: No ear discharge, No nasal drainage, No recent hearing loss Respiratory: As described under HPI Cardiovascular: As described under HPI Gastrointestinal: No diarrhea, No nausea, No vomiting Genitourinary: No dysuria, No hematuria Musculoskeletal: back pain (chronic) Skin: No ulcerations Psychiatric/Neurological: No seizure, No focal weakness, No syncope Hematologic: No bleeding abnormalities All Other Systems Reviewed Negative Unless Noted: Yes [id number] Hx Patient Social History Marrital Status: Employed/Student: retired Alcohol Use: Denies Use Recreational Drug Use: No Smoking Status: Former Smoker Type Used: Cigarettes 2nd Hand Smoke Exposure: No Recent Foreign Travel: No Recent Infectious Disease Expo: No Hospitalization with Isolation: Denies Physical Abuse Screen: No Sexual Abuse: No Immunizations Up To Date Tetanus Booster (TDap): Unknown Date of Pneumonia Vaccine: Feb 12, 2011 Date of Influenza Vaccine: Feb 29, 2016 Past Medical History PMH As described under Assessment. Family Medical History Family Medical History: No fam h/o early CAD or SCD Family History: Alcoholism 19 FATHER Completed stroke 19 FATHER (Unknown approx 70 years old) Allergies and Home Medications Allergies Coded Allergies: amlodipine (Verified Allergy, Intermediate, TONGUE SWELLING, 10/31/16) Home Medications Alprazolam 0.5 Mg Tablet, 0.5 MG PO TID PRN for ANXIETY, (Reported) Amlodipine Besylate 10 Mg Tablet, 10 MG PO DAILY, (Reported) Dorzolamide HCl/Pf 10 Ml Drops, 1 DROP OU BID, (Reported) Latanoprost 2.5 Ml Drops, 1 DROP OU HS, (Reported) Lisinopril 40 Mg Tablet, 40 MG PO DAILY, (Reported) Metoprolol Succinate 25 Mg Tab.er.24h, 25 MG PO HS, (Reported) Pantoprazole Sodium 40 Mg Tablet.dr, 40 MG PO HS, (Reported) Tamsulosin HCl 0.4 Mg Cap.er.24h, 0.4 MG PO 1800, (Reported) Timolol Maleate 5 Ml Drops, 1 DROP OU BID, (Reported) Patient Home Medication List Home Medication List Reviewed: Yes Physical Exam-Cardiology Physical Exam Vital Signs/I&O 02/18/18 02/18/18 02/19/18 02/19/18 23:00 23:51 00:00 00:00 Temp 98.0 Pulse 128 121 Resp 35 27 B/P (MAP) 107/84 (92) 106/72 (83) Pulse Ox 97 98 98 O2 Delivery NIV Bilevel NIV Bilevel NIV Bilevel O2 Flow Rate 35.00 35.00 35.00 02/19/18 02/19/18 02/19/18 02/19/18 00:30 01:00 01:00 02:00 Pulse 113 107 107 118 Resp 23 21 18 B/P (MAP) 106/72 (83) 113/76 (88) Pulse Ox 94 100 100 O2 Delivery NIV Bilevel NIV Bilevel O2 Flow Rate 35.00 35.00 35.00 02/19/18 02/19/18 02/19/18 02/19/18 02:05 02:35 03:00 04:00 Pulse 122 121 129 123 Resp 26 25 35 23 B/P (MAP) 110/80 (90) Pulse Ox 95 99 93 91 O2 Delivery Nasal Cannula Nasal Cannula Nasal Cannula O2 Flow Rate 35.00 3.00 3.00 3.00 02/19/18 02/19/18 02/19/18 02/19/18 04:00 04:38 05:00 05:19 Temp 98.5 Pulse 129 Resp 20 B/P (MAP) Pulse Ox 92 88 O2 Delivery Nasal Cannula Nasal Cannula NIV Bilevel O2 Flow Rate 3.00 3.00 35.00 02/19/18 02/19/18 02/19/18 02/19/18 06:00 06:00 06:28 06:30 Pulse 137 141 141 Resp 30 36 35 B/P (MAP) 119/97 (104) 111/79 (90) Pulse Ox 94 95 92 O2 Delivery NIV Bilevel NIV Bilevel NIV Bilevel O2 Flow Rate 40.00 40.00 50.00 50.00 02/19/18 02/19/18 02/19/18 02/19/18 06:38 07:00 07:00 08:00 Pulse 108 107 Resp 29 B/P (MAP) 105/69 (81) Pulse Ox 94 92 O2 Delivery NIV Bilevel NIV Bilevel NIV Bilevel O2 Flow Rate 50.00 50.00 2.00 FiO2 50 02/19/18 02/19/18 02/19/18 08:00 08:12 10:02 Pulse 114 118 112 Resp 26 32 29 B/P (MAP) 95/71 (79) Pulse Ox 98 100 100 O2 Delivery NIV Bilevel O2 Flow Rate 50.00 50.00 40.00 02/19/18 00:00 Intake Total 432 ml Output Total 750 ml Balance -318 ml Capillary Refill : Less Than 3 SecondsLess Than 3 Seconds Constitutional: well-developed, well-nourished, other (Has poor recall/memory. Is on BiPAP at time of this exam. Does appear oriented x 3) HEENT: PERRL, EOMI; No xanthelasmas are seen Neck: carotid pulses are 2 + bilaterally, with good upstrokes Respiratory: No accessory muscle use; other (Fair air entry, prolonged exp, fine and coarse basal crackles) Cardiovascular: regular rate-rhythm, S1 and S2, systolic murmur (faint KARSON at card base) Gastrointestinal: No tender; soft; No guarding, No rebound; audible bowel sounds Extremities: No clubbing, No cyanosis, No significant edema Neurologic/Psychiatric: grossly intact, power is 5/5 both on sides Skin: normal color, warm/dry; No rash on exposed areas, No ulcerations on exposed areas Data Review Labs Laboratory Tests 02/18/18 18:51: Blood Gas Puncture Site LT RAD, Blood Gas Patient Temperature 99.6, Arterial Blood pH 7.41, Arterial Blood Partial Pressure CO2 27L, Arterial Blood Partial Pressure O2 125H, Arterial Blood HCO3 17*L, Arterial Blood Total CO2 17.6L, Arterial Blood Oxygen Saturation 99, Arterial Blood Base Excess -6.9L, Chicho Test YES-POS, Blood Gas Ventilator Setting NO, Blood Gas Inspired Oxygen 60% 02/19/18 03:40: White Blood Count 19.0H, Red Blood Count 3.49L, Hemoglobin 11.3L, Hematocrit 33L , Mean Corpuscular Volume 95, Mean Corpuscular Hemoglobin 32, Mean Corpuscular Hemoglobin Concent 34, Red Cell Distribution Width 14.2, Platelet Count 178, Mean Platelet Volume 12.3H, Neutrophils (%) (Auto) 88H, Lymphocytes (%) (Auto) 4L, Monocytes (%) (Auto) 7, Eosinophils (%) (Auto) 2, Basophils (%) (Auto) 0, Neutrophils # (Auto) 16.7H, Lymphocytes # (Auto) 0.7L, Monocytes # (Auto) 1.4H, Eosinophils # (Auto) 0.3, Basophils # (Auto) 0.0, Sodium Level 137, Potassium Level 4.3, Chloride Level 109H, Carbon Dioxide Level 14L, Anion Gap 14, Blood Urea Nitrogen 16, Creatinine 1.12, Estimat Glomerular Filtration Rate > 60, BUN/ Creatinine Ratio 14, Glucose Level 178H, Calcium Level 9.0, Corrected Calcium 9.6, Total Bilirubin 0.5, Aspartate Amino Transf (AST/SGOT) 73H, Alanine Aminotransferase (ALT/SGPT) 22, Alkaline Phosphatase 61, Total Protein 6.6, Albumin 3.3 02/19/18 08:15: Lactic Acid Level 3.62*H, B-Type Natriuretic Peptide 4250.6H Microbiology 02/17/18 Blood Culture - Preliminary, Resulted No growth 02/18/18 Influenza Types A,B Antigen (RICARDO) - Final, Complete 02/17/18 Urine Culture - Final, Complete NO GROWTH A/P-Cardiology Assessment/Admission Diagnosis Pneumonia with septicemia Borderline septic shock Ac systolic and diastolic CHF Hypoxemia due to the above-noted conditions H/o GI bleed in October 2016, treated with blood transfusions: HH, gastritis, non- bleeding duodenal ulcers, colonic diverticulosis, and a sigmoid polyp (removed) found on endoscopy by Dr Rendon at that time Suspected CAD (as indicated by elevated troponin thought to be anemia-induced NSTEMI in October 2016 during presentation with severe anemia). Pt did not follow up Frequent PVCs (documented during this hospitalization and during the hospitalization of October 2016) Echo of 10/29/16: LVEF 45-50%, grade I walker dysfunction, mild to mod MR, AoV sclerosis w/o stenosis Discussion and Recomendations * Suffers from multiple comorbidities. I discussed his CV issues with him and two of his fam who were by his bedside * Continue diuretics as needed and as tolerated * BB if tolerated by bp * Monitor labs * 12-lead ECG and echo are recommended * Further recs based on his hosp course * Discussed his case with Dr Spangler this am Clinical Quality Measures DVT/VTE Risk/Contraindication: Risk Factor Score Per Nursin RFS Level Per Nursing on Admit: 3=High ANTOINE FALLON MD FACP FAC CCDS Feb 19, 2018 10:16
[2018-02-19] MEDS ORDERED: meTOproloL SUCCINATE 50 MG (TOPROL XL) TAB PO NR (10:45)
[2018-02-19] MEDS: TIMOLOL MALEATE 0.5% 5 ML (TIMOPTIC) BTL OU SCH ×2 (13:01→20:35)
[2018-02-19] MEDS: DORZOLAMIDE 2% 10 ML BTL (TRUSOPT) OU SCH ×2 (13:02→20:35)
[2018-02-19] MEDS: ACETAMINOPHEN 325 MG TABLET PO PRN (13:15)
[2018-02-19] MEDS ORDERED: IBUPROFEN TABLET 200 MG TAB PO PRN ×2 (14:30→15:00)
[2018-02-19] MEDS ORDERED: IBUPROFEN 600 MG (MOTRIN) TAB PO PRN (15:00)
[2018-02-19] MEDS: PIPERACILLIN SODIUM/TAZOBACTAM 4.5 GM in NS (IVPB) 100 ML IV SCH ×2 (15:22→23:31)
[2018-02-19] MEDS: TAMSULOSIN 0.4 MG (FLOMAX) CAP PO SCH (18:18)
[2018-02-19] MEDS: LATANOPROST 0.005% (XALATAN) OPHTH SOLN 2.5 ML OU SCH (20:35)
[2018-02-19] MEDS: ALPRAZolam 0.5 MG (XANAX) TAB PO PRN (20:35)
[2018-02-20] VITALS (24 sets, daily range): BP systolic 79–136; BP diastolic 56–122
[2018-02-20] MEDS: RT-ALBUTEROL/IPRATROPIUM 3 ML (DUONEB) VIAL INH SCH ×6 (01:47→21:28)
[2018-02-20 03:48] LABS: BASOPHILS % (AUTO) 0 % (0-10); EOSINOPHILS % (AUTO) 0 % (0-10); HEMATOCRIT 29 % (40-54); HEMOGLOBIN 9.8 G/DL (13.3-17.7); LYMPHOCYTES # (AUTO) 0.5 X 10^3 (1.0-4.0); LYMPHOCYTES % (AUTO) 3 % (12-44); MEAN CORPUSCULAR HEMOGLOBIN 31 PG (25-34); MEAN CORPUSCULAR HGB CONC 34 G/DL (32-36); MEAN CORPUSCULAR VOLUME 94 FL (80-99); MEAN PLATELET VOLUME 12.5 FL (7.4-10.4); MONOCYTES # (AUTO) 1.1 X 10^3 (0.0-1.0); MONOCYTES % (AUTO) 6 % (0-12); NEUTROPHILS # (AUTO) 15.7 X 10^3 (1.8-7.8); NEUTROPHILS % (AUTO) 91 % (42-75); PLATELET COUNT 212 10^3/uL (130-400); RED BLOOD COUNT 3.12 10^6/uL (4.35-5.85); RED CELL DISTRIBUTION WIDTH 14.2 % (10.0-14.5); WHITE BLOOD COUNT 17.3 10^3/uL (4.3-11.0)
[2018-02-20 04:04] LABS: MAGNESIUM 1.6 MG/DL (1.8-2.4)
[2018-02-20 04:08] LABS: ALBUMIN 2.8 GM/DL (3.2-4.5); BILIRUBIN,TOTAL 0.8 MG/DL (0.1-1.0); CALCIUM 8.5 MG/DL (8.5-10.1); CREATININE SERUM 1.42 MG/DL (0.60-1.30); POTASSIUM 3.7 MMOL/L (3.6-5.0); TOTAL PROTEIN 5.8 GM/DL (6.4-8.2)
[2018-02-20] MEDS: NS IV 1000 ML 1,000 ML IV SCH (04:10)
--- NOTE | 2018-02-20 07:25 | Diagnostic Imaging Report ---
INDICATION: Pneumonia and respiratory distress Upright portable AP view of the chest is obtained. Comparison is made to the study of 02/19/2018. There is continued extensive bilateral airspace disease, greater on the left. There is relative sparing of the right upper lobe. No pneumothorax is identified. There is no significant adverse change. There is blunting of the right costophrenic sulcus indicating pleural fluid. IMPRESSION: Bilateral airspace disease similar to previous study likely represents edema and/or pneumonia. There does appear to be mild increase in right pleural fluid. Continued clinical correlation and radiographic followup would be of use. Dictated by: Dictated on workstation # [id number]
[2018-02-20] MEDS: ALPRAZolam 0.5 MG (XANAX) TAB PO PRN ×2 (07:29→14:32)
[2018-02-20] MEDS: meTOproloL SUCCINATE 50 MG (TOPROL XL) TAB PO SCH (08:14)
[2018-02-20] MEDS: LACTOBACILLUS ACIDOPHILUS (PROBIOTIC) CAPSULE PO SCH ×3 (08:14→17:13)
[2018-02-20] MEDS: OSELTAMIVIR 30 MG (TAMIFLU) CAPSULE PO SCH ×2 (08:14→21:23)
[2018-02-20] MEDS: TIMOLOL MALEATE 0.5% 5 ML (TIMOPTIC) BTL OU SCH ×2 (08:15→21:19)
[2018-02-20] MEDS: PIPERACILLIN SODIUM/TAZOBACTAM 4.5 GM in NS (IVPB) 100 ML IV SCH ×3 (08:15→23:18)
[2018-02-20] MEDS: DORZOLAMIDE 2% 10 ML BTL (TRUSOPT) OU SCH ×2 (08:16→21:22)
[2018-02-20] MEDS ORDERED: FUROSEMIDE 40 MG/4 ML INJ (LASIX) IVP NR ×3 (08:30→10:00)
--- NOTE | 2018-02-20 08:34 | Progress Note-Hospitalist ---
Subjective HPI/CC On Admission Date Seen by Provider: Feb 20, 2018 Time Seen by Provider: 08:33 Pt is an 82yoCM with a PMH of HTN who presented to the ER with CC of cough and fever. He states he felt well lsat night when he went to be but this morning he woke up with fever and chills. He then started coughing as well. He denies any sputum. His daughter checks on him daily and she noticed he as shivering when she saw him for breakfast this morning. He brother called him at 10am and also thought he did not sounds right so the daughter returned to his house and decided to bring him to the ER for evaluation. He denies any myalgias, abd pain , sore throat, runny nose, sick contacts, or chest pain. Subjective/Events-last exam Pt reports breathing is better. Is back on BiPAP this AM. Wsa wearing Vapotherm but cannula fell out of nose and became very short of breath. Focused Exam Lactate Level 02/19/18 08:15: Lactic Acid Level 3.62*H 02/19/18 10:25: Lactic Acid Level 2.12*H Objective Exam Vital Signs Vital Signs Date Time Temp Pulse Resp B/P (MAP) Pulse Ox O2 Delivery O2 Flow Rate FiO2 02/21/18 11:00 96 26 108/74 (85) Vapotherm 85.00 35.00 02/21/18 10:55 99 80 02/21/18 08:00 99.2 Capillary Refill : Less Than 3 SecondsLess Than 3 Seconds General Appearance: No Apparent Distress, WD/WN Respiratory: No Accessory Muscle Use, Decreased Breath Sounds; No Wheezing Cardiovascular: Regular Rate, Rhythm, No Murmur Gastrointestinal: Normal Bowel Sounds, Non Tender, Soft Extremity: No Calf Tenderness, No Pedal Edema Neurologic/Psychiatric: Alert, Oriented x3 Results/Procedures Lab Laboratory Tests 02/21/18 02:59 Patient resulted labs reviewed. Assessment/Plan Assessment and Plan Assess & Plan/Chief Complaint Severe Sepsis/Pneumonia Diagnosis/Problems Diagnosis/Problems (1) Severe sepsis Status: Acute Assessment & Plan: White trending back down Last fever- yesterday afternoon Flu swab negative Will get RVP PCR Blood cultures NGTD CXR consistent with PNA- worsened today Continue Vanc/Zosyn; tamiflu as well Probiotics started with abx (2) CHF (congestive heart failure) Assessment & Plan: EF 10-15% Cardiology consulted, appreciate recs Will check troponin Repeat Lasix this AM Qualifiers: Heart failure type: systolic Heart failure chronicity: acute Qualified Codes: I50.21 - Acute systolic (congestive) heart failure (3) CAP (community acquired pneumonia) Assessment & Plan: Continue Vanc and Zosyn Sputum culture Qualifiers: Laterality: left Lung location: unspecified part of lung Qualified Codes : J18.9 - Pneumonia, unspecified organism (4) Atrial fibrillation with RVR Assessment & Plan: Cardiology consulted, appreciate recs On metoprolol History of GI bleed (Hgb to 4 in past) Defer anticoagulation to cardiology given risks (5) Essential (primary) hypertension Assessment & Plan: Trend, BPs marginal yesterday Resume metoprolol for tachycardia (6) Anxiety Status: Acute Assessment & Plan: Resumed home Xanax Clinical Quality Measures DVT/VTE Risk/Contraindication: Risk Factor Score Per Nursin RFS Level Per Nursing on Admit: 3=High JASMEET HERNANDEZ MD Feb 20, 2018 8:33 am
--- NOTE | 2018-02-20 08:35 | Progress Note-Cardiology ---
Cardiology SOAP Progress Note Subjective: In bed with Bi-pap in place. Reports increased SOB. Denies any CP. Objective: I&O/Vital Signs 02/19/18 02/19/18 02/20/18 02/20/18 22:52 23:00 00:00 00:00 Temp 98.9 Pulse 83 90 Resp 24 28 B/P (MAP) 110/69 (83) 120/73 (89) Pulse Ox 94 93 92 O2 Delivery Vapotherm Vapotherm Vapotherm O2 Flow Rate 60.00 60.00 20.00 20.00 20.00 FiO2 60 02/20/18 02/20/18 02/20/18 02/20/18 00:17 01:00 01:03 01:47 Pulse 101 107 109 Resp 29 30 B/P (MAP) 127/77 (94) 108/67 (81) Pulse Ox 90 89 O2 Delivery Vapotherm Vapotherm NIV Bilevel O2 Flow Rate 60.00 60.00 75.00 20.00 20.00 02/20/18 02/20/18 02/20/18 02/20/18 01:47 01:58 02:00 03:00 Pulse 123 122 110 Resp 36 36 26 B/P (MAP) 119/79 (92) 111/75 (87) Pulse Ox 92 85 90 99 O2 Delivery Vapotherm NIV Bilevel NIV Bilevel O2 Flow Rate 20.00 75.00 75.00 75.00 FiO2 70 02/20/18 02/20/18 02/20/18 02/20/18 03:11 04:00 04:00 04:00 Temp 99.2 Pulse 110 103 Resp 26 28 B/P (MAP) 127/83 (98) Pulse Ox 95 92 98 O2 Delivery Vapotherm NIV Bilevel O2 Flow Rate 75.00 20.00 65.00 FiO2 60 02/20/18 02/20/18 02/20/18 02/20/18 05:00 06:00 06:09 07:00 Pulse 108 109 114 Resp 22 30 B/P (MAP) 111/82 (92) 122/84 (97) Pulse Ox 97 91 94 O2 Delivery NIV Bilevel Vapotherm Vapotherm O2 Flow Rate 65.00 60.00 30.00 20.00 FiO2 80 02/20/18 02/20/18 02/20/18 02/20/18 07:00 07:45 07:53 08:00 Pulse 114 109 123 Resp 34 35 33 B/P (MAP) 115/85 (95) 121/91 (101) Pulse Ox 93 95 100 O2 Delivery Vapotherm NIV Bilevel NIV Bilevel O2 Flow Rate 60.00 50.00 55.00 50.00 20.00 02/20/18 02/20/18 02/20/18 02/20/18 08:31 09:00 10:00 10:08 Pulse 113 114 112 Resp 20 29 32 B/P (MAP) 135/95 (108) 136/122 (127) Pulse Ox 92 91 100 95 O2 Delivery NIV Bilevel NIV Bilevel NIV Bilevel O2 Flow Rate 2.00 50.00 50.00 55.00 FiO2 50 02/20/18 00:00 Intake Total 1400 ml Output Total 1950 ml Balance -550 ml Weight (Pounds): 163 Weight (Ounces): 8.0 Weight (Calculated Kilograms): 73.533056 Constitutional: well-developed, well-nourished, other (Has poor recall/memory. Is on BiPAP at time of this exam. Does appear oriented x 3) Respiratory: No accessory muscle use; other (Fair air entry, prolonged exp, fine and coarse basal crackles) Cardiovascular: regular rate-rhythm, S1 and S2, systolic murmur (faint KARSON at card base) Gastrointestional: No tender; soft; No guarding, No rebound; audible bowel sounds Extremities: No clubbing, No cyanosis, No significant edema Neurologic/Psychiatric: grossly intact, power is 5/5 both on sides Skin: normal color, warm/dry; No rash on exposed areas, No ulcerations on exposed areas Results/Procedures: Labs Laboratory Tests 02/20/18 03:23: White Blood Count 17.3H, Red Blood Count 3.12L, Hemoglobin 9.8L, Hematocrit 29L , Mean Corpuscular Volume 94, Mean Corpuscular Hemoglobin 31, Mean Corpuscular Hemoglobin Concent 34, Red Cell Distribution Width 14.2, Platelet Count 212, Mean Platelet Volume 12.5H, Neutrophils (%) (Auto) 91H, Lymphocytes (%) (Auto) 3L, Monocytes (%) (Auto) 6, Eosinophils (%) (Auto) 0, Basophils (%) (Auto) 0, Neutrophils # (Auto) 15.7H, Lymphocytes # (Auto) 0.5L, Monocytes # (Auto) 1.1H, Eosinophils # (Auto) 0.0, Basophils # (Auto) 0.0, Sodium Level 136, Potassium Level 3.7, Chloride Level 111H, Carbon Dioxide Level 14L, Anion Gap 11, Blood Urea Nitrogen 28H, Creatinine 1.42H, Estimat Glomerular Filtration Rate 48, BUN/ Creatinine Ratio 20, Glucose Level 163H, Calcium Level 8.5, Corrected Calcium 9.5, Phosphorus Level 3.0, Magnesium Level 1.6L, Total Bilirubin 0.8, Aspartate Amino Transf (AST/SGOT) 70H, Alanine Aminotransferase (ALT/SGPT) 28, Alkaline Phosphatase 54, Troponin I 11.27*H, Total Protein 5.8L, Albumin 2.8L Microbiology 02/17/18 Blood Culture - Preliminary, Resulted No growth 02/18/18 Influenza Types A,B Antigen (RICARDO) - Final, Complete 02/17/18 Urine Culture - Final, Complete NO GROWTH Procedures NAME: ANU[facility]WELL [facility] REC#: [id number] PT STATUS: ADM IN : 1935 PHYSICIAN: JASMEET HERNANDEZ MD ADMIT DATE: 02/17/18/ICU Draft Date of Exam:02/20/18 CHEST 1 VIEW, AP/PA ONLY INDICATION: Pneumonia and respiratory distress Upright portable AP view of the chest is obtained. Comparison is made to the study of 02/19/2018. There is continued extensive bilateral airspace disease, greater on the left. There is relative sparing of the right upper lobe. No pneumothorax is identified. There is no significant adverse change. There is blunting of the right costophrenic sulcus indicating pleural fluid. IMPRESSION: Bilateral airspace disease similar to previous study likely represents edema and/or pneumonia. There does appear to be mild increase in right pleural fluid. Continued clinical correlation and radiographic followup would be of use. Dictated on workstation # [id number] Dict: 02/20/18 0657 Trans: 02/20/18 0724 MANUEL [id number] Interpreted by: АЛЕКСАНДР SOTELO MD Electronically signed by: A/P: Assessment: Pneumonia with septicemia Borderline septic shock Ac systolic and diastolic CHF Hypoxemia due to the above-noted conditions H/o GI bleed in October 2016, treated with blood transfusions: HH, gastritis, non- bleeding duodenal ulcers, colonic diverticulosis, and a sigmoid polyp (removed) found on endoscopy by Dr Rendon at that time Suspected CAD (as indicated by elevated troponin thought to be anemia-induced NSTEMI in October 2016 during presentation with severe anemia). Pt did not follow up Frequent PVCs (documented during this hospitalization and during the hospitalization of October 2016) Echo of 10/29/16: LVEF 45-50%, grade I walker dysfunction, mild to mod MR, AoV sclerosis w/o stenosis. Echocardiogram of 02-19-18 showed LVEF 10-15%; severe diffuse hypokinesis; LA and RA mod dilated; mod to severe aortic stenosis; PASP 40-45mmHg Plan: * Suffers from multiple comorbidities; complex management * Echocardiogram reviewed, LVEF decreased to 10-15% * HR not well controlled * Tolerating BB; adjust dose as tolerated * Add YOLIS (-) and Aldactone * Continue IV diuretics as needed and as tolerated * Add low dose ASA d/t suspected CAD * Replace Mag * Monitor labs * Further recs based on his hosp course * Discussed his case with ZENA Hopkins am Feb 20, 2018 08:35
[2018-02-20] MEDS ORDERED: VANCOMYCIN 1 GM/NS 250 ML IVPB IV SCH ×2 (09:00)
[2018-02-20] MEDS: MAGNESIUM 1 GM/100 ML IVPB 100 ML IV SCH ×2 (09:13→10:27)
[2018-02-20] MEDS ORDERED: KCL 20 MEQ TAB (K-DUR) PO NR (10:00)
[2018-02-20] MEDS ORDERED: SACUBITRIL/VALSARTAN 24/26 MG (ENTRESTO) TABLET PO NR (10:00)
[2018-02-20] MEDS: SODIUM BICARBONATE IV SCH ×2 (10:26)
[2018-02-20] MEDS: [UNRECOGNIZED DRUG - OTHER] IV SCH ×2 (10:26)
--- NOTE | 2018-02-20 10:38 | Progress Note-Cardiology ---
Cardiology SOAP Progress Note Subjective: Continues with shortness of breath No cp or palp or syncope Objective: I&O/Vital Signs 02/19/18 02/19/18 02/20/18 02/20/18 22:52 23:00 00:00 00:00 Temp 98.9 Pulse 83 90 Resp 24 28 B/P (MAP) 110/69 (83) 120/73 (89) Pulse Ox 94 93 92 O2 Delivery Vapotherm Vapotherm Vapotherm O2 Flow Rate 60.00 60.00 20.00 20.00 20.00 FiO2 60 02/20/18 02/20/18 02/20/18 02/20/18 00:17 01:00 01:03 01:47 Pulse 101 107 109 Resp 29 30 B/P (MAP) 127/77 (94) 108/67 (81) Pulse Ox 90 89 O2 Delivery Vapotherm Vapotherm NIV Bilevel O2 Flow Rate 60.00 60.00 75.00 20.00 20.00 02/20/18 02/20/18 02/20/18 02/20/18 01:47 01:58 02:00 03:00 Pulse 123 122 110 Resp 36 36 26 B/P (MAP) 119/79 (92) 111/75 (87) Pulse Ox 92 85 90 99 O2 Delivery Vapotherm NIV Bilevel NIV Bilevel O2 Flow Rate 20.00 75.00 75.00 75.00 FiO2 70 02/20/18 02/20/18 02/20/18 02/20/18 03:11 04:00 04:00 04:00 Temp 99.2 Pulse 110 103 Resp 26 28 B/P (MAP) 127/83 (98) Pulse Ox 95 92 98 O2 Delivery Vapotherm NIV Bilevel O2 Flow Rate 75.00 20.00 65.00 FiO2 60 02/20/18 02/20/18 02/20/18 02/20/18 05:00 06:00 06:09 07:00 Pulse 108 109 114 Resp 22 30 B/P (MAP) 111/82 (92) 122/84 (97) Pulse Ox 97 91 94 O2 Delivery NIV Bilevel Vapotherm Vapotherm O2 Flow Rate 65.00 60.00 30.00 20.00 FiO2 80 02/20/18 02/20/18 02/20/18 02/20/18 07:00 07:45 07:53 08:00 Pulse 114 109 123 Resp 34 35 33 B/P (MAP) 115/85 (95) 121/91 (101) Pulse Ox 93 95 100 O2 Delivery Vapotherm NIV Bilevel NIV Bilevel O2 Flow Rate 60.00 50.00 55.00 50.00 20.00 02/20/18 02/20/18 02/20/18 02/20/18 08:31 09:00 10:00 10:08 Pulse 113 114 112 Resp 20 29 32 B/P (MAP) 135/95 (108) 136/122 (127) Pulse Ox 92 91 100 95 O2 Delivery NIV Bilevel NIV Bilevel NIV Bilevel O2 Flow Rate 2.00 50.00 50.00 55.00 FiO2 50 02/19/18 23:59 Intake Total 1400 ml Output Total 1950 ml Balance -550 ml Weight (Pounds): 163 Weight (Ounces): 8.0 Weight (Calculated Kilograms): 73.300900 Constitutional: well-developed, well-nourished, other (Has poor recall/memory. Is on BiPAP at time of this exam. Does appear oriented, but slow to respond to questions) Respiratory: No accessory muscle use; other (Fair air entry, prolonged exp, fine and coarse basal crackles) Cardiovascular: regular rate-rhythm, S1 and S2, systolic murmur (2-3/6 MSM) Gastrointestional: No tender; soft; No guarding, No rebound; audible bowel sounds Extremities: No clubbing, No cyanosis, No significant edema Neurologic/Psychiatric: grossly intact, power is 5/5 both on sides Skin: normal color, warm/dry; No rash on exposed areas, No ulcerations on exposed areas Results/Procedures: Labs Laboratory Tests 02/20/18 03:23: White Blood Count 17.3H, Red Blood Count 3.12L, Hemoglobin 9.8L, Hematocrit 29L , Mean Corpuscular Volume 94, Mean Corpuscular Hemoglobin 31, Mean Corpuscular Hemoglobin Concent 34, Red Cell Distribution Width 14.2, Platelet Count 212, Mean Platelet Volume 12.5H, Neutrophils (%) (Auto) 91H, Lymphocytes (%) (Auto) 3L, Monocytes (%) (Auto) 6, Eosinophils (%) (Auto) 0, Basophils (%) (Auto) 0, Neutrophils # (Auto) 15.7H, Lymphocytes # (Auto) 0.5L, Monocytes # (Auto) 1.1H, Eosinophils # (Auto) 0.0, Basophils # (Auto) 0.0, Sodium Level 136, Potassium Level 3.7, Chloride Level 111H, Carbon Dioxide Level 14L, Anion Gap 11, Blood Urea Nitrogen 28H, Creatinine 1.42H, Estimat Glomerular Filtration Rate 48, BUN/ Creatinine Ratio 20, Glucose Level 163H, Calcium Level 8.5, Corrected Calcium 9.5, Phosphorus Level 3.0, Magnesium Level 1.6L, Total Bilirubin 0.8, Aspartate Amino Transf (AST/SGOT) 70H, Alanine Aminotransferase (ALT/SGPT) 28, Alkaline Phosphatase 54, Troponin I 11.27*H, Total Protein 5.8L, Albumin 2.8L Microbiology 02/17/18 Blood Culture - Preliminary, Resulted No growth 02/18/18 Influenza Types A,B Antigen (RICARDO) - Final, Complete 02/17/18 Urine Culture - Final, Complete NO GROWTH Laboratory Tests 02/19/18 03:40 02/20/18 03:23 A/P: Assessment: Ac systolic and diastolic CHF Pneumonia with septicemia Hypoxemia due to the above-noted conditions Troponin elevation likely due to hypoxemia due to CHF and pneumonia Ac renal failure with met acidosis H/o GI bleed in October 2016, treated with blood transfusions: HH, gastritis, non- bleeding duodenal ulcers, colonic diverticulosis, and a sigmoid polyp (removed) found on endoscopy by Dr Rendon at that time Suspected CAD (as indicated by elevated troponin thought to be anemia-induced NSTEMI in October 2016 during presentation with severe anemia). Pt did not follow up Frequent PVCs (documented during this hospitalization and during the hospitalization of October 2016) Echocardiogram of 02-19-18 showed LVEF 10-15%; severe diffuse hypokinesis; LA and RA mod dilated; mod to severe aortic stenosis; PASP 40-45mmHg Plan: * He is critically ill with multiple comorbidities that are outlined above * Diuretics as needed and as tolerated for decomp CHF * BB and Entresto for cardiomyopathy * Treat acidosis * Treat electrolytes as needed * Monitor labs * Further recs based on his hosp course * I called Dr Spangler and discussed the case with her ANTOINE FALLON MD [facility] CCDS Feb 20, 2018 10:38
[2018-02-20] MEDS: ACETAMINOPHEN 325 MG TABLET PO PRN (14:31)
[2018-02-20] MEDS: FUROSEMIDE 40 MG/4 ML INJ (LASIX) IVP SCH (15:48)
[2018-02-20] MEDS: meTOprolol 5 MG/5 ML (LOPRESSOR) VIAL IV PRN (15:53)
[2018-02-20] MEDS: TAMSULOSIN 0.4 MG (FLOMAX) CAP PO SCH (18:54)
[2018-02-20] MEDS ORDERED: ALBUMIN 5% 12.5 GM/250 ML 250 ML IV ONE ×2 (20:22→21:30)
[2018-02-20] MEDS: LATANOPROST 0.005% (XALATAN) OPHTH SOLN 2.5 ML OU SCH (21:21)
[2018-02-20] MEDS: SACUBITRIL/VALSARTAN 24/26 MG (ENTRESTO) TABLET PO SCH (21:23)
[2018-02-20] MEDS ORDERED: ALBUMIN 5% 12.5 GM/250 ML 250 ML IV SCH (22:15)
[2018-02-21] VITALS (18 sets, daily range): BP systolic 73–141; BP diastolic 59–104
[2018-02-21] MEDS: meTOprolol 5 MG/5 ML (LOPRESSOR) VIAL IV PRN (01:20)
[2018-02-21] MEDS: RT-ALBUTEROL/IPRATROPIUM 3 ML (DUONEB) VIAL INH SCH ×4 (01:20→13:50)
[2018-02-21] MEDS ORDERED: meTOprolol 5 MG/5 ML (LOPRESSOR) VIAL IV ONE (01:45)
[2018-02-21 03:14] LABS: BASOPHILS % (AUTO) 0 % (0-10); EOSINOPHILS % (AUTO) 0 % (0-10); HEMATOCRIT 28 % (40-54); HEMOGLOBIN 9.3 G/DL (13.3-17.7); LYMPHOCYTES # (AUTO) 0.7 X 10^3 (1.0-4.0); LYMPHOCYTES % (AUTO) 5 % (12-44); MEAN CORPUSCULAR HEMOGLOBIN 31 PG (25-34); MEAN CORPUSCULAR HGB CONC 33 G/DL (32-36); MEAN CORPUSCULAR VOLUME 94 FL (80-99); MEAN PLATELET VOLUME 12.3 FL (7.4-10.4); MONOCYTES # (AUTO) 1.1 X 10^3 (0.0-1.0); MONOCYTES % (AUTO) 6 % (0-12); NEUTROPHILS # (AUTO) 14.8 X 10^3 (1.8-7.8); NEUTROPHILS % (AUTO) 89 % (42-75); PLATELET COUNT 268 10^3/uL (130-400); RED BLOOD COUNT 3.02 10^6/uL (4.35-5.85); RED CELL DISTRIBUTION WIDTH 14.1 % (10.0-14.5); WHITE BLOOD COUNT 16.6 10^3/uL (4.3-11.0)
[2018-02-21 03:38] LABS: MAGNESIUM 2.2 MG/DL (1.8-2.4); PHOSPHORUS 3.4 MG/DL (2.3-4.7)
[2018-02-21 03:42] LABS: ALBUMIN 3.3 GM/DL (3.2-4.5); BILIRUBIN,TOTAL 1.4 MG/DL (0.1-1.0); CALCIUM 8.8 MG/DL (8.5-10.1); CREATININE SERUM 2.05 MG/DL (0.60-1.30); POTASSIUM 3.9 MMOL/L (3.6-5.0); TOTAL PROTEIN 6.2 GM/DL (6.4-8.2)
[2018-02-21] MEDS: ALPRAZolam 0.5 MG (XANAX) TAB PO PRN (04:31)
[2018-02-21] MEDS: PIPERACILLIN SODIUM/TAZOBACTAM 4.5 GM in NS (IVPB) 100 ML IV SCH (06:21)
[2018-02-21] MEDS: RT-ALBUTEROL/IPRATROPIUM 3 ML (DUONEB) VIAL INH PRN (06:26)
[2018-02-21] MEDS ORDERED: KCL 20 MEQ TAB (K-DUR) PO SCH (07:00)
--- NOTE | 2018-02-21 07:29 | Diagnostic Imaging Report ---
INDICATION: Followup pneumonia. Respiratory distress. COMPARISON: 02/20/2018. FINDINGS: Single frontal radiographic view of the chest was obtained and again demonstrates bilateral patchy and confluent infiltrates, left greater than right. There does appear to be some interval progression of confluence of infiltrate on the left. Small right effusion is again noted. There is no pneumothorax on either side. Cardiac silhouette is heavily obscured, but appears stable in size. Bony structures show no gross acute interval change. IMPRESSION: 1. Redemonstration of significant bilateral infiltrates with probable progression on the left. Continued followup is recommended. 2. Small right effusion. Dictated by: Dictated on workstation # [id number]
[2018-02-21] MEDS ORDERED: TROUGH ORDER-PHARMACY XX SCH (08:00)
[2018-02-21] MEDS: FUROSEMIDE 40 MG/4 ML INJ (LASIX) IVP SCH (08:10)
--- NOTE | 2018-02-21 08:12 | Progress Note-Hospitalist ---
Subjective HPI/CC On Admission Date Seen by Provider: Feb 21, 2018 Time Seen by Provider: 08:04 Pt is an 82yoCM with a PMH of HTN who presented to the ER with CC of cough and fever. He states he felt well lsat night when he went to be but this morning he woke up with fever and chills. He then started coughing as well. He denies any sputum. His daughter checks on him daily and she noticed he as shivering when she saw him for breakfast this morning. He brother called him at 10am and also thought he did not sounds right so the daughter returned to his house and decided to bring him to the ER for evaluation. He denies any myalgias, abd pain , sore throat, runny nose, sick contacts, or chest pain. Subjective/Events-last exam Pt reports feeling much better. He would like to get out of bed and would like a malt from [employer]. Focused Exam Lactate Level 02/19/18 08:15: Lactic Acid Level 3.62*H 02/19/18 10:25: Lactic Acid Level 2.12*H Objective Exam Vital Signs Vital Signs Date Time Temp Pulse Resp B/P (MAP) Pulse Ox O2 Delivery O2 Flow Rate FiO2 02/21/18 18:00 112 32 141/93 (109) 89 Vapotherm 80.00 35.00 02/21/18 16:00 80 02/21/18 08:00 99.2 Capillary Refill : Less Than 3 SecondsLess Than 3 Seconds General Appearance: No Apparent Distress, Chronically ill Respiratory: No Accessory Muscle Use, Rhonci, Other (on vapotherm) Cardiovascular: No Murmur, Irregularly Irregular Gastrointestinal: Non Tender, Soft Neurologic/Psychiatric: Alert, Oriented x3, Normal Mood/Affect Results/Procedures Lab Laboratory Tests 02/21/18 02:59 Patient resulted labs reviewed. Assessment/Plan Assessment and Plan Assess & Plan/Chief Complaint Severe Sepsis/Pneumonia Diagnosis/Problems Diagnosis/Problems (1) Severe sepsis Status: Acute Assessment & Plan: White trending back down Last fever- yesterday afternoon Flu swab negative RVP ordered- pending Blood cultures NGTD CXR consistent with PNA- worsened today Continue Vanc/Zosyn; tamiflu as well Probiotics started with abx BP dropped overnight- will get central line (2) CHF (congestive heart failure) Assessment & Plan: EF 10-15% Cardiology consulted, appreciate recs Troponin elevated at 11 Qualifiers: Heart failure type: systolic Heart failure chronicity: acute Qualified Codes: I50.21 - Acute systolic (congestive) heart failure (3) CAP (community acquired pneumonia) Assessment & Plan: Continue Vanc and Zosyn Sputum culture- negative Qualifiers: Laterality: left Lung location: unspecified part of lung Qualified Codes : J18.9 - Pneumonia, unspecified organism (4) Atrial fibrillation with RVR Assessment & Plan: Cardiology consulted, appreciate recs On metoprolol History of GI bleed (Hgb to 4 in past) Defer anticoagulation to cardiology given risks (5) Essential (primary) hypertension Assessment & Plan: BPs trending down with Entresto and Metoprolol (6) Anxiety Status: Acute Assessment & Plan: Continue home Xanax Clinical Quality Measures End of Life/Advance Care Plan: Advance Care discuss with: patient, family member (s) End of Life Care: Comfort Measures Plan: initiate discussion, clarifying prognosis, identified end-of-life goals, developed treatment plan Time spent on discussion(mins): 60 DVT/VTE Risk/Contraindication: Risk Factor Score Per Nursin RFS Level Per Nursing on Admit: 3=High JASMEET HERNANDEZ MD Feb 21, 2018 08:12
[2018-02-21] MEDS: LACTOBACILLUS ACIDOPHILUS (PROBIOTIC) CAPSULE PO SCH ×2 (08:25→11:56)
[2018-02-21] MEDS: OSELTAMIVIR 30 MG (TAMIFLU) CAPSULE PO SCH (08:25)
[2018-02-21] MEDS: [UNRECOGNIZED DRUG - OTHER] IV SCH ×2 (08:26)
[2018-02-21] MEDS: SODIUM BICARBONATE IV SCH ×2 (08:26)
[2018-02-21] MEDS: DORZOLAMIDE 2% 10 ML BTL (TRUSOPT) OU SCH ×2 (08:26→08:32)
[2018-02-21] MEDS: SACUBITRIL/VALSARTAN 24/26 MG (ENTRESTO) TABLET PO SCH (08:27)
[2018-02-21] MEDS: TIMOLOL MALEATE 0.5% 5 ML (TIMOPTIC) BTL OU SCH (08:27)
[2018-02-21] MEDS: meTOproloL SUCCINATE 50 MG (TOPROL XL) TAB PO SCH (08:28)
[2018-02-21] MEDS ORDERED: DOBUTamine INJECTION 250 MG in NS (IVPB) 250 ML IV SCH (08:45)
--- NOTE | 2018-02-21 08:48 | Progress Note-Cardiology ---
Cardiology SOAP Progress Note Subjective: Gen malaise States feels somewhat less short of breath No cp Objective: I&O/Vital Signs 02/20/18 02/20/18 02/20/18 02/20/18 21:00 21:28 22:02 23:00 Pulse 96 101 90 105 Resp 31 30 33 31 B/P (MAP) 89/70 (76) 82/56 (65) 118/77 (91) Pulse Ox 96 93 95 91 O2 Delivery NIV Bilevel NIV Bilevel NIV Bilevel O2 Flow Rate 60.00 60.00 60.00 60.00 02/20/18 02/20/18 02/21/18 02/21/18 23:45 23:50 00:00 00:59 Temp 97.3 Pulse 104 109 125 Resp 27 32 B/P (MAP) 124/93 (103) Pulse Ox 91 91 93 O2 Delivery NIV Bilevel NIV Bilevel NIV Bilevel O2 Flow Rate 60.00 60.00 FiO2 60 02/21/18 02/21/18 02/21/18 02/21/18 01:00 01:20 02:00 03:00 Pulse 147 124 107 103 Resp 33 36 36 32 B/P (MAP) 73/60 (64) 80/59 (66) 98/80 (86) Pulse Ox 87 85 92 O2 Delivery NIV Bilevel NIV Bilevel NIV Bilevel O2 Flow Rate 60.00 60.00 60.00 60.00 02/21/18 02/21/18 02/21/18 02/21/18 03:25 04:00 04:00 04:35 Temp 99.7 Pulse 106 105 Resp 33 38 B/P (MAP) 95/77 (83) Pulse Ox 96 88 O2 Delivery NIV Bilevel Vapotherm O2 Flow Rate 60.00 60.00 35.00 FiO2 70 02/21/18 02/21/18 02/21/18 02/21/18 05:00 05:22 06:00 06:26 Pulse 104 105 Resp 31 38 B/P (MAP) 92/69 (77) 96/76 (83) Pulse Ox 89 92 97 98 O2 Delivery Vapotherm Vapotherm Vapotherm Vapotherm O2 Flow Rate 70.00 35.00 85.00 40.00 35.00 40.00 FiO2 65 85 02/21/18 02/21/18 02/21/18 02/21/18 07:00 07:00 08:00 08:00 Temp 99.2 Pulse 105 102 Resp 33 B/P (MAP) 106/75 (85) Pulse Ox 99 88 O2 Delivery Vapotherm Vapotherm O2 Flow Rate 85.00 35.00 40.00 FiO2 80 02/21/18 08:00 Pulse 105 Resp 32 B/P (MAP) 89/78 (82) Pulse Ox 94 O2 Delivery Vapotherm O2 Flow Rate 85.00 40.00 02/21/18 00:00 Intake Total 1490 ml Output Total 1200 ml Balance 290 ml Weight (Pounds): 168 Weight (Ounces): 8.0 Weight (Calculated Kilograms): 76.994562 Constitutional: No AAO x 3; well-developed, well-nourished, other (Has poor recall/memory. Appears mildly confused) Respiratory: No accessory muscle use; other (Fair air entry, prolonged exp, fine and coarse basal crackles) Cardiovascular: regular rate-rhythm, S1 and S2, systolic murmur (2-3/6 MSM) Gastrointestional: No tender; soft; No guarding, No rebound; audible bowel sounds Extremities: No clubbing, No cyanosis, No significant edema Neurologic/Psychiatric: grossly intact, power is 5/5 both on sides Skin: normal color, warm/dry; No rash on exposed areas, No ulcerations on exposed areas Results/Procedures: Labs Laboratory Tests 02/21/18 02:59: White Blood Count 16.6H, Red Blood Count 3.02L, Hemoglobin 9.3L, Hematocrit 28L , Mean Corpuscular Volume 94, Mean Corpuscular Hemoglobin 31, Mean Corpuscular Hemoglobin Concent 33, Red Cell Distribution Width 14.1, Platelet Count 268, Mean Platelet Volume 12.3H, Neutrophils (%) (Auto) 89H, Lymphocytes (%) (Auto) 5L, Monocytes (%) (Auto) 6, Eosinophils (%) (Auto) 0, Basophils (%) (Auto) 0, Neutrophils # (Auto) 14.8H, Lymphocytes # (Auto) 0.7L, Monocytes # (Auto) 1.1H, Eosinophils # (Auto) 0.0, Basophils # (Auto) 0.0, Sodium Level 140, Potassium Level 3.9, Chloride Level 108H, Carbon Dioxide Level 18L, Anion Gap 14, Blood Urea Nitrogen 40H, Creatinine 2.05H, Estimat Glomerular Filtration Rate 31, BUN/ Creatinine Ratio 20, Glucose Level 208H, Calcium Level 8.8, Corrected Calcium 9.4, Phosphorus Level 3.4, Magnesium Level 2.2, Total Bilirubin 1.4H, Aspartate Amino Transf (AST/SGOT) 85H, Alanine Aminotransferase (ALT/SGPT) 71H, Alkaline Phosphatase 57, Total Protein 6.2L, Albumin 3.3 02/21/18 08:05: Vancomycin Level Trough 8.1L Microbiology 02/17/18 Blood Culture - Preliminary, Resulted No growth 02/17/18 Urine Culture - Final, Complete NO GROWTH Laboratory Tests 02/20/18 03:23 02/21/18 02:59 A/P: Assessment: Shock: septic and/or cardiogenic (marked cardiomyopathy) Ac systolic and diastolic CHF Pneumonia with sepsis Hypoxemia due to the above-noted conditions Troponin elevation likely due to hypoxemia due to CHF and pneumonia Ac renal failure with met acidosis H/o GI bleed in October 2016, treated with blood transfusions: HH, gastritis, non- bleeding duodenal ulcers, colonic diverticulosis, and a sigmoid polyp (removed) found on endoscopy by Dr Rendon at that time Suspected CAD (as indicated by elevated troponin thought to be anemia-induced NSTEMI in October 2016 during presentation with severe anemia). Pt did not follow up Frequent PVCs (documented during this hospitalization and during the hospitalization of October 2016) Echocardiogram of 02-19-18 showed LVEF 10-15%; severe diffuse hypokinesis; LA and RA mod dilated; mod to severe aortic stenosis; PASP 40-45mmHg Plan: * He is critically ill with multiple comorbidities that are outlined above. Prognosis is guarded * Add dobutamine in effort to improve cardiac output * iv fluids to support bp * Pressors, if needed * Diuretics as needed and as tolerated for decomp CHF * BB and Entresto for cardiomyopathy, if tolerated by bp * Treat acidosis * Treat electrolytes as needed * Monitor labs ANTOINE FALLON MD [facility] CCDS Feb 21, 2018 08:48
[2018-02-21] MEDS ORDERED: VANCOMYCIN 1250 MG/NS 250 ML IVPB IV SCH ×2 (09:00)
--- NOTE | 2018-02-21 09:14 | Physical Therapy Evaluation ---
PT Evaluation-General Medical Diagnosis Admission Date Feb 17, 2018 at 15:00 Medical Diagnosis: pneumonia Onset Date: Feb 17, 2018 Therapy Diagnosis Therapy Diagnosis: impaired mobility, endurance Height/Weight Height (Feet): 5 Height (Inches): 7.00 Weight (Pounds): 168 Weight (Ounces): 8.0 Precautions Precautions/Isolations: Fall Prevention, Standard Precautions Weight Bear Status Right Lower Extremity: Right Weight Bearing/Tolerated Left Lower Extremity: Left Weight Bearing/Tolerated Referral Physician: Brenda Spangler MD Reason for Referral: Evaluation/Treatment Medical History Pertinent Medical History: Arthritis, GERD, HTN, Smoking Additional Medical History Past Medical History Surgeries: Orthopedic Respiratory: COPD, Pneumonia Cardiac: High Cholesterol, Hypertension Reproductive: No Sexually Transmitted Disease: No HIV/AIDS: No Genitourinary: Prostate Problems Gastrointestinal: Gastroesophageal Reflux, Gastrointestinal Bleed, Ulcer Musculoskeletal: Arthritis Loss of Vision: Bilateral Hearing Impairment: Denies Psychosocial: Anxiety Current History went to ER with cough and fever Reviewed History: Yes Social History Home: Single Level Current Living Status: Alone Entry Into Home: Stairs With Railing PT Steps Into Home: 2 Prior/Core FIM Prior Level of Function Functional [place] Measure 0=Not Assessed/NA 4=Minimal Assistance 1=Total Assistance 5=Supervision or Setup 2=Maximal Assistance 6=Modified [place] 3=Moderate Assistance 7=Complete [place] Bed Mobility: 7 Transfers (B,C,W/C) (FIM): 7 Gait: 6 Patient states he was using a single point cane for ambulation. PT Evaluation-Current Subjective Patient in bed pre tx, agrees to PT, no complaints of pain. Nurse is in the room and states that he is having trouble getting his O2 sat up which is currently at 79-80% and doesn't want him to get out of bed but can do PT in bed. Pt/Family Goals to be independent at home Objective Patient Orientation: Person, Place, Situation Attachments: Oxygen, [place] Catheter, IV vapotherm ROM/Strength ROM Lower Extremities WNL Strength Lower Extremities 3+/5 gross bilateral lower extremities Integumentary/Posture Bladder Incontinence: [place] Cath Neuromuscular (Tone, Coordination, Reflexes) NT Sensory Hearing: Functional Sensation Right Lower Extremit: Intact Sensation Left Lower Extremity: Intact Sensation Lower Extremities Patient has no complaints of numbness or tingling in his legs. Transfers Functional [place] Measure 0=Not Assessed/NA 4=Minimal Assistance 1=Total Assistance 5=Supervision or Setup 2=Maximal Assistance 6=Modified [place] 3=Moderate Assistance 7=Complete [place] Transfers (B, C, W/C) (FIM): 5 Scootin Rollin Supine to/from Sit: 5 Patient was able to sit at the edge of the bed with some difficulty but without assist. As soon as patient sat at the edge of the bed the nurse wanted him to lay back down. Patient layed back down and O2 at that time was 90%. Nurse and respiratory therapist then discussed putting patient on bipap. Treatment ended at this time. Balance Sitting Static: Good Sitting Dynamic: Good Assessment/Needs Patient has impaired mobility, strength, endurance Rehab Potential: Guarded PT Short Term Goals Short Term Goals Time Frame: Feb 28, 2018 Transfers (B,C,W/C) (FIM): 6 Gait (FIM): 1 Gait Distance Comment: 20' Gait Level of Assist: 4 Gait Assistive Device: FWW PT Plan Problem List Problem List: Activity Tolerance, Functional Strength, Safety, Balance, Gait, Transfer, Bed Mobility Treatment/Plan Treatment Plan: Continue Plan of Care Treatment Plan: Bed Mobility, Concurrent Therapy, Education, Functional Activity Jay, Functional Strength, Gait, Safety, Therapeutic Exercise, Transfers Treatment Duration: Feb 28, 2018 Frequency: 6 times per week Estimated Hrs Per Day: .25 hour per day (15-30') Patient and/or Family Agrees t: Yes Safety Risks/Education Patient Education: Transfer Techniques, Correct Positioning, Safety Issues Teaching Recipient: Patient Teaching Methods: Demonstration, Discussion Response to Teaching: Reinforcement Needed Discharge Recommendations Plan Patient will perform bed mobility and transfer training, balance and endurance training, functional strengthening, stair training, gait training, and education , to improve functional mobility and independence at home. Therapy D/C Recommendations: Home w/ Family Support, Group Home (TCU/NH) Time/GCodes Time In: 08 Time Out: 08 Total Billed Treatment Time: 10 Total Billed Treatment 1 visit CATALINA HAYDEN PT Feb 21, 2018 09:14
[2018-02-21] MEDS ORDERED: NS IV 1000 ML 1,000 ML IV SCH (09:15)
--- NOTE | 2018-02-21 10:36 | Consultation ---
History of Present Illness History of Present Illness Patient Consulted On(brendon/time) 02/21/18 10:35 Time Seen by Provider: 10:35 History of Present Illness Surgery asked to consult regarding Venous Insufficiency, Sepsis, CAP, CAD HPI per IM: Pt is an 82yoCM with a PMH of HTN who presented to the ER with CC of cough and fever. He states he felt well lsat night when he went to be but this morning he woke up with fever and chills. He then started coughing as well. He denies any sputum. His daughter checks on him daily and she noticed he as shivering when she saw him for breakfast this morning. He brother called him at 10am and also thought he did not sounds right so the daughter returned to his house and decided to bring him to the ER for evaluation. He denies any myalgias, abd pain, sore throat, runny nose, sick contacts, or chest pain. Source: patient, family When I saw pt they were just taking him off BiPap and placing him on high flow NC. They are worried that he could drop his BP again and may need Central Access in case they have to give pressors. Pt having SOB, denies CP and no abdominal pain. Allergies and Home Medications Allergies Coded Allergies: amlodipine (Verified Allergy, Intermediate, TONGUE SWELLING, 10/31/16) Home Medications Alprazolam 0.5 Mg Tablet, 0.5 MG PO TID PRN for ANXIETY, (Reported) Amlodipine Besylate 10 Mg Tablet, 10 MG PO DAILY, (Reported) Dorzolamide HCl/Pf 10 Ml Drops, 1 DROP OU BID, (Reported) Latanoprost 2.5 Ml Drops, 1 DROP OU HS, (Reported) Lisinopril 40 Mg Tablet, 40 MG PO DAILY, (Reported) Metoprolol Succinate 25 Mg Tab.er.24h, 25 MG PO HS, (Reported) Pantoprazole Sodium 40 Mg Tablet.dr, 40 MG PO HS, (Reported) Tamsulosin HCl 0.4 Mg Cap.er.24h, 0.4 MG PO 1800, (Reported) Timolol Maleate 5 Ml Drops, 1 DROP OU BID, (Reported) Patient Home Medication List Home Medication List Reviewed: Yes Past Xktockj-[id number]-Zdekoe Hx Patient Social History Alcohol Use: Denies Use Recreational Drug Use: No Smoking Status: Former Smoker Former Smoker, Quit: Feb 17, 1983 Type Used: Cigarettes 2nd Hand Smoke Exposure: No Recent Foreign Travel: No Contact w/Someone Who Travel: No Recent Infectious Disease Expo: No Recent Hopitalizations: No Physical Abuse Screen: No Sexual Abuse: No Immunizations Up To Date Tetanus Booster (TDap): Unknown Date of Pneumonia Vaccine: Feb 12, 2011 Date of Influenza Vaccine: Feb 29, 2016 Seasonal Allergies Seasonal Allergies: Yes Surgeries History of Surgeries: Yes (knee scope) Surgeries: Orthopedic Respiratory History of Respiratory Disorde: No Respiratory Disorders: Pneumonia Cardiovascular History of Cardiac Disorders: Yes Cardiac Disorders: High Cholesterol, Hypertension Neurological History of Neurological Disord: No Reproductive System Hx Reproductive Disorders: No Sexually Transmitted Disease: No HIV/AIDS: No Genitourinary History of Genitourinary Disor: No Genitourinary Disorders: Prostate Problems Gastrointestinal History of Gastrointestinal Di: Yes Gastrointestinal Disorders: Gastroesophageal Reflux, Gastrointestinal Bleed, Ulcer Musculoskeletal History of Musculoskeletal Dis: Yes (ARTHRITIS) Musculoskeletal Disorders: Arthritis Endocrine History of Endocrine Disorders: No HEENT History of HEENT Disorders: No Loss of Vision: Bilateral Hearing Impairment: Denies Cancer History of Cancer: No Psychosocial History of Psychiatric Problem: Yes Behavioral Health Disorders: Anxiety Integumentary History of Skin or Integumenta: No Blood Transfusions History of Blood Disorders: No Adverse Reaction to a Blood Tr: No (HAS HAD BLOOS WITH NO REACTION) Family Medical History Significant Family History: Stroke Family Medial History: Alcoholism 19 FATHER Completed stroke 19 FATHER (Unknown approx 70 years old) Review of Systems-General Constitutional: chills, diaphoresis, malaise, weakness EENTM: No blurred vision, No epistaxis, No throat swelling Respiratory: cough, dyspnea on exertion; No hemoptysis; short of breath Cardiovascular: No chest pain, No edema; palpitations Gastrointestinal: No abdominal pain, No constipation, No diarrhea, No jaundice Genitourinary: No dysuria, No frequency, No hematuria Musculoskeletal: back pain, joint pain, muscle pain, muscle stiffness Skin: No pruritus, No rash Psychiatric/Neurological: Denies Anxiety, Denies Depressed, Denies Seizure, Denies Tingling Physical Exam-General Problems Physical Exam Vital Signs Vital Signs - First Documented 02/17/18 02/17/18 02/19/18 13:51 16:08 08:00 Temp 100.4 Pulse 97 Resp 19 B/P (MAP) 131/70 (90) Pulse Ox 93 O2 Delivery Room Air O2 Flow Rate 2.00 FiO2 50 Capillary Refill : Less Than 3 SecondsLess Than 3 Seconds General Appearance: no apparent distress, thin Eyes: Bilateral Eye PERRL, Bilateral Eye EOMI HEENT: pharynx normal; No scleral icterus (R), No scleral icterus (L), No pale conjunctivae (R), No pale conjunctivae (L) Neck: supple; No thyromegaly Respiratory: chest non-tender, accessory muscle use, crackles (at the bases), wheezing Cardiovascular: systolic murmur (grade I-II), irregularly irregular Gastrointestinal: normal bowel sounds, non tender, soft, no organomegaly, no pulsatile mass Rectal: deferred Back: no CVA tenderness, no vertebral tenderness Extremities: no pedal edema, no calf tenderness, normal capillary refill Neurologic/Psychiatric: spray painter helper II-XII nml as tested, no motor/sensory deficits, normal mood/affect Skin: normal color, warm/dry Lymphatic: no adenopathy (neck, axilla or groin) Data Review Labs Laboratory Tests 02/21/18 02:59: White Blood Count 16.6H, Red Blood Count 3.02L, Hemoglobin 9.3L, Hematocrit 28L , Mean Corpuscular Volume 94, Mean Corpuscular Hemoglobin 31, Mean Corpuscular Hemoglobin Concent 33, Red Cell Distribution Width 14.1, Platelet Count 268, Mean Platelet Volume 12.3H, Neutrophils (%) (Auto) 89H, Lymphocytes (%) (Auto) 5L, Monocytes (%) (Auto) 6, Eosinophils (%) (Auto) 0, Basophils (%) (Auto) 0, Neutrophils # (Auto) 14.8H, Lymphocytes # (Auto) 0.7L, Monocytes # (Auto) 1.1H, Eosinophils # (Auto) 0.0, Basophils # (Auto) 0.0, Sodium Level 140, Potassium Level 3.9, Chloride Level 108H, Carbon Dioxide Level 18L, Anion Gap 14, Blood Urea Nitrogen 40H, Creatinine 2.05H, Estimat Glomerular Filtration Rate 31, BUN/ Creatinine Ratio 20, Glucose Level 208H, Calcium Level 8.8, Corrected Calcium 9.4, Phosphorus Level 3.4, Magnesium Level 2.2, Total Bilirubin 1.4H, Aspartate Amino Transf (AST/SGOT) 85H, Alanine Aminotransferase (ALT/SGPT) 71H, Alkaline Phosphatase 57, Total Protein 6.2L, Albumin 3.3 02/21/18 08:05: Vancomycin Level Trough 8.1L Microbiology 02/17/18 Blood Culture - Preliminary, Resulted No growth 02/17/18 Urine Culture - Final, Complete NO GROWTH Assessment/Plan Assessment/Plan Assessment/Plan Venous insufficiency Sepsis CAP CAD Medicine and ICU are concerned that if pt becomes more septic or drops BP again ; they won't be able to give him enough fluids, IV meds and possibly Vasopressors. Central line triple lumen catheter was placed with US guidance in Right IJ. CXR showed no PTX and good position of catheter. I needed to do this Consult in order to assess pt's ability for the catheter, his co-morbidities and to explain to him risks and complications of the procedure. These included but are not limited to pain, bleeding, infection, scar, damage to major vessels and PTX. All questions answered to his satisfaction. Clinical Quality Measures DVT/VTE Risk/Contraindication: Risk Factor Score Per Nursin RFS Level Per Nursing on Admit: 3=High JOEY PALMER DO Feb 21, 2018 10:36
--- NOTE | 2018-02-21 11:18 | Progress Note-Post Operative ---
Post-Operative Progess Note Surgeon (s)/Shoe Repair Cobbler (s) Surgeon JOEY PALMER DO Shoe Repair Cobbler: none Pre-Operative Diagnosis Venous Insufficiency, Sepsis, CAP, CAD Post-Operative Diagnosis same Procedure & Operative Findings Date of Procedure 02/21/18 Procedure Performed/Findings Insertion triple lumen central line in R IJ with US guidance Anesthesia Type local lidocaine Estimated Blood Loss Estimated blood loss (mL): scant Specimens/Packing Specimens Removed none JOEY PALMER DO Feb 21, 2018 11:18
--- NOTE | 2018-02-21 11:33 | Diagnostic Imaging Report ---
Indication: Central line. Study compared to the exam earlier this same date, this film is timed 11:18 a.m.. Catheter via the right has its tip in the lower SVC. There is no pneumothorax. There is severe 5-lobed airspace disease asymmetric greater left showing increase. Bilateral pleural effusions are similar. No pneumothorax. Impression: Worsened severe 5-lobed airspace disease central line in good position with no pneumothorax, unchanged pleural fluid volumes. Dictated by: Dictated on workstation # [id number]
--- NOTE | 2018-02-21 11:58 | Occupational Therapy Eval ---
OT Evaluation-General/PLF Medical Diagnosis Admission Date Feb 17, 2018 at 15:00 Medical Diagnosis: pneumonia Onset Date: Feb 17, 2018 Therapy Diagnosis Therapy Diagnosis: impaired self care skills Height/Weight Height (Feet): 5 Height (Inches): 7.00 Weight (Pounds): 168 Weight (Ounces): 8.0 Precautions Precautions/Isolations: Fall Prevention, Standard Precautions Safety Interventions: None Referral Physician: Brenda Spangler MD Medical History Pertinent Medical History: Arthritis, GERD, HTN, Smoking Additional Medical History high cholesterol, GI bleed, anxiety Current History Pt admitted with pneumonia. Reviewed History: Yes Social History Home: Single Level Current Living Status: Alone Entry Into Home: Stairs With Railing Steps Into Home: 2 ADL-Prior Level of Function ADL PLOF Comments Pt states his daughter provides meals, but he is able to complete other ADLs. Uses a cane for mobility DME/Equipment: Grab Bars, Tub/Shower DME/Equipment Comments has as toilet riser if needed. Drive Self: Yes OT Current Status Subjective RN states pt okay for therapy this morning. Pt in bed, agrees to therapy. No c/o pain. Mental Status/Objective Patient Orientation: Person, Place Attachments: [place] Catheter, IV, Oxygen (vaportherm) Current Upper Extremity ROM Grossly functional Upper Extremity Coordination Intact Upper Extremity Strength decreased bilateral UE ADL-Treatment ADL-Current Pt participated in UE assessment while in bed. Pt washed face with set up using bilateral UE. Pt declined to brush teeth at this time. Pt able to drink from cup with set up. Pt has decreased activity tolerance. Education provided regarding role of OT and plan of care. Pt states understanding and is in agreement with plan. Pt in bed with needs met after session, family present. Functional [place] Measure 0=Not Assessed/NA 4=Minimal Assistance 1=Total Assistance 5=Supervision or Setup 2=Maximal Assistance 6=Modified [place] 3=Moderate Assistance 7=Complete IndependenceIRFPAI Quality Coding Scale 6 Independent with activity with or without an assistive device 5 Patient requires set up or clean up by helper. Patient completes activity by themselves 4 Supervision or touching assist (CGA). [place] provide cues , steadying assist 3 The helper provides less than half the effort to complete the activity 2 The helper provides more than half the effort to complete the activity 1 Dependent. The helper does all the effort to complete an activity 7 Patient refused to complete or attempt activity 9 The patient did not perform the activity before the current illness or injury 88 Not attempted due to Medical conditions or safety concerns Eating (FIM): 5 Grooming (FIM): 5 OT Short Term Goals Short Term Goals Transfers (B,C,W/C) (FIM): 6 1=Demonstrate adherence to instructed precautions during ADL tasks. 2=Patient will verbalize/demonstrate understanding of assistive devices/ modifications for ADL. 3=Patient will improve strength/tolerance for activity to enable patient to perform ADL's. OT Alf Goals Composition Board Press Operator Goals Time Frame: Mar 07, 2018 Eating (FIM): 6 Grooming(FIM): 6 Upper Body Dressing(FIM): 5 Lower Body Dressing(FIM): 5 Toilet/Commode Transfer(FIM): 5 Additional Goals: 1-Demonstrate ADL Tasks, 2-Verbalize Understanding, 3- ImproveStrength/Jay 1=Demonstrate adherence to instructed precautions during ADL tasks. 2=Patient will verbalize/demonstrate understanding of assistive devices/ modifications for ADL. 3=Patient will improve strength/tolerance for activity to enable patient to perform ADL's. OT Education/Plan Problem List/Assessment Assessment: Decreased Activ Tolerance, Decreased UE Strength, Dependent Transfers, Impaired Self-Care Skills Pt to benefit from skilled OT intervention for ADL training, transfers, strengthening, and home safety education to increase functional independence and allow safe discharge. Discharge Recommendations Plan/Recommendations: Continue POC Treatment Plan/Plan of Care Treatment,Training & Education: Yes Patient would benefit from OT for education, treatment and training to promote independence in ADL's, mobility, safety and/or upper extremity function for ADL' s. Plan of Care: ADL Retraining, Functional Mobility, UE Funct Exercise/Act Treatment Duration: Mar 07, 2018 Frequency: 5 times per week Estimated Hrs Per Day: .25 hour per day Rehab Potential: Guarded Time/GCodes Start Time: 11:36 Stop Time: 11:48 Total Time Billed (hr/min): 12 Billed Treatment Time 1 visit, BO(12minutes) TATUM GEIGER OT Feb 21, 2018 11:58
[2018-02-21] MEDS ORDERED: BISACODYL 10 MG SUPP (DULCOLAX) PR PRN (14:45)
[2018-02-21] MEDS ORDERED: GLYCOPYRROLATE 0.2 MG/ML (ROBINUL) 2 ML VIAL IV PRN (14:45)
[2018-02-21] MEDS ORDERED: ATROPINE 1% OPHTHALMIC SOLN 2 ML SL PRN (14:45)
[2018-02-21] MEDS ORDERED: LORazepam ORAL CONCENTRATE 2 MG/ML 30 ML (ATIVAN) PO PRN (14:45)
[2018-02-21] MEDS ORDERED: LORazepam INJ 2 MG/ML (ATIVAN) VIAL IVP PRN (14:45)
[2018-02-21] MEDS ORDERED: PROMETHAZINE INJ 25 MG/ML (PHENERGAN) AMP IVP PRN (14:45)
[2018-02-21] MEDS ORDERED: SALIVA STIMULANT MOUTH SPRAY (BIOTENE) 1.5 OZ MM PRN (14:45)
[2018-02-21] MEDS ORDERED: ACETAMINOPHEN 650 MG SUPP (TYLENOL) PR PRN (14:45)
[2018-02-21] MEDS ORDERED: RT-ALBUTEROL/IPRATROPIUM 3 ML (DUONEB) VIAL INH PRN (14:45)
[2018-02-21] MEDS ORDERED: morphine (ROXINOL) 10 MG/0.5 ML oral conc 0.5 ML PO PRN (14:45)
[2018-02-21] MEDS ORDERED: ARTIFICAL TEARS 0.4 ML UNIT DOSE (REFRESH PLUS) OU PRN (14:45)
[2018-02-21] MEDS ORDERED: ONDANSETRON 4 MG/2 ML (SDV) Z0FRAN IVP PRN (14:45)
--- NOTE | 2018-02-21 15:22 | OPERATIVE REPORT ---
DATE OF SERVICE: 02/21/2018 PREOPERATIVE DIAGNOSES: 1. Venous insufficiency. 2. Sepsis. 3. Community-acquired pneumonia. 4. Coronary artery disease. 5. Atrial fibrillation. POSTOPERATIVE DIAGNOSES: 1. Venous insufficiency. 2. Sepsis. 3. Community-acquired pneumonia. 4. Coronary artery disease. 5. Atrial fibrillation. PROCEDURE: Insertion of triple lumen catheter, right IJ with ultrasound guidance. SURGEON: Carlyle Chairez DO. FACILITIES OPERATOR: None. ANESTHESIA: Local lidocaine. BLOOD LOSS: Scant. FLUIDS: None. POSTOPERATIVE CONDITION: Stable. INDICATION FOR PROCEDURE: The patient is an 82-year-old male who was admitted to ICU with a community-acquired pneumonia, shortness of breath. He was septic, has been having trouble with blood pressure and there was concern for need of larger IV for more fluids, more medications and possible vasopressors, needed a central line. FINDINGS: The patient had a central line placed in the right IJ with ultrasound guidance. PROCEDURE NOTE: After informed consent was obtained, the patient was in his bed in the ICU. He was sterilely prepped and draped in normal fashion, placed slightly Trendelenburg, found the internal jugular vein with ultrasound, infiltrated the skin with local, then advanced an 18-gauge fine needle with negative inspiration, watching as it entered the IJ on ultrasound, could see it enter, good flash of blood, removed the syringe, then placed a guidewire down the needle using the Seldinger technique, it went in easily. At this point, then removed the needle, made a stab incision along the guidewire and then over the guidewire, placed a dilator using Seldinger technique and removed the dilator and over the guidewire, placed a triple lumen catheter using Seldinger technique, it went in easily, removed the guidewire and then placed locking ports on all three ports and then easily aspirated and flushed all three ports, sutured this in place with a 3-0 silk suture, suturing the triple lumen to the neck. Area was then cleaned and dried and a Biopatch as well as a Tegaderm was placed. The patient tolerated the procedure. Job ID: [id number] DocumentID: [id number] Dictated Date: 02/21/2018 11:31:28 Car Supplier Date: 02/21/2018 15:21:19 Dictated By: CARLYLE CHAIREZ DO [facility]
[2018-02-21] MEDS: morphine INJ 4 MG/ML 1 ML (VIAL/SYRINGE) IV PRN ×2 (20:00→21:21)
--- NOTE | 2018-02-22 08:18 | Discharge Summary-Hospitalist ---
Discharge Summary Date of Admission Feb 17, 2018 at 15:00 Date of Discharge Feb 21, 2018 at 22:45 Admission Diagnosis Severe Sepsis Consults/Procedures Consulations Dr Costello; Cardiology Comfort Measures/ End of Life Care: Comfort Measures Advance Care discuss with: patient, family member (s) Plan: initiate discussion, clarifying prognosis, identified end-of-life goals, developed treatment plan Time spent on discussion (min): 60 Date of : Feb 21, 2018 Pt was admitted for severe sepsis due to pneumonia. He was treated with broad spectrum antibiotics but continued to worsen and developed heart failure and hypotension. Troponin was checked and found to be elevated at 11. Cardiology was consulted and he was deemed not a candidate for a cardiac cath at this time due to renal function. He continued to worsen and discussions were had with him and his family regarding possible intubation. Ultimately they elected comfort measures only. He was transfer from the ICU on comfort measures and on the evening of 02/21. Discharge Diagnosis Severe Sepsis/Pneumonia (1) Severe sepsis Status: Acute (2) CHF (congestive heart failure) Assessment & Plan: EF 10-15% Cardiology consulted Qualifiers: Qualified Codes: I50.21 - Acute systolic (congestive) heart failure (3) CAP (community acquired pneumonia) Assessment & Plan: Received Vanc and Zosyn Sputum culture- negative Respi Viral Panel- Negative Qualifiers: Qualified Codes: J18.9 - Pneumonia, unspecified organism (4) Atrial fibrillation with RVR Assessment & Plan: Cardiology consulted, appreciate recs (5) Essential (primary) hypertension (6) Anxiety Status: Acute JASMEET HERNANDEZ MD Feb 22, 2018 08:18
[2018-02-22] MEDS ORDERED: OSELTAMIVIR 30 MG (TAMIFLU) CAPSULE PO SCH (09:00)
[2018-02-23] MEDS ORDERED: TROUGH ORDER-PHARMACY XX NR (08:00)
[2018-02-24 11:33] LABS: PARAINFLU 2 PCR Not Detected (Not Detected)
[2018-02-25 07:31] LABS: PARAINFLU 1 PCR Not Detected (Not Detected); RSV PCR Not Detected (Not Detected)
--- NOTE | 2018-03-03 09:19 | Physician Query Clarification ---
PQ-Intro New Diagnosis Admission/Discharge Admission Date: Feb 17, 2018 at 15:00 Discharge Date: Feb 21, 2018 at 22:45 The medical record reflects the following clinical scenario: History/Risk Factors: sepsis, pneumonia Clinical Findings: O2 sats 88%, ABG's pH 7.42, pCO2 27, pO2 125 Treatment: 2L NC increased to BiPAP Question: What condition best reflects the above clinical scenario? Please document below. 1. Acute respiratory failure with hypoxia 2. Acute respiratory failure 3. Other, with explanation of the clinical findings. 4. Clinically undetermined, no explanation for the clinical findings. PHYSICIAN RESPONSE What condition reflects above: 2 In responding to this query, please exercise your independent professional judgment. The purpose of this communication is to more accurately reflect the complexity of your patients condition. The fact that a question is asked does not imply that any particular answer is desired or expected. Thank you for your timely response to this clarification. Requestors name: [ ] Phone # [ ] THIS PHYSICIAN QUERY FORM IS A PERMANENT PART OF THE MEDICAL RECORD YNES CHANCE Mar 03, 2018 09:19 JASMEET HERNANDEZ MD Mar 03, 2018 13:51
--- NOTE | 2018-03-03 09:23 | Physician Query Clarification ---
PQ-Conflicting Diagnosis Admission/Discharge Admission Date: Feb 17, 2018 at 15:00 Discharge Date: Feb 21, 2018 at 22:45 The medical record reflects the following clinical scenario: History/Risk Factors: pneumonia, sepsis Clinical Findings: documented CHF, summary states acute systolic failure Treatment: Lasix Question: Do you agree with the impression of the acute and chronic systolic heart failure per Dr. Costello. Please document a response below. PHYSICIAN RESPONSE Do you agree w/Consulting Dx?: Yes In responding to this query, please exercise your independent professional judgment. The purpose of this communication is to more accurately reflect the complexity of your patients condition. The fact that a question is asked does not imply that any particular answer is desired or expected. Thank you for your timely response to this clarification. Requestors name: [ ] Phone # [ ] THIS PHYSICIAN QUERY FORM IS A PERMANENT PART OF THE MEDICAL RECORD YNES CHANCE Mar 03, 2018 09:23 JASMEET HERNANDEZ MD Mar 03, 2018 13:52
== END 2018-02-21 22:45 | disposition expired | DRG 871 ==
LOC: EDUNIT# 13:39 → ER 13:40 → UNDOADMIN 15:00 → 4TH 15:00 → ICU 02-18 17:55 → 4TH 02-21 18:53
PROVIDERS: ADMIT Family Medicine; ATTEND Family Medicine
PROC: 02HV33Z Insertion of Infusion Device into Superior Vena Cava, Percutaneous Approach (ICD-10-PCS; principal; 2018-02-21)
DX: A41.9 Sepsis, unspecified organism (principal); R65.21 Severe sepsis with septic shock; J18.9 Pneumonia, unspecified organism; J44.0 Chronic obstructive pulmonary disease with (acute) lower respiratory infection; E87.2 Acidosis; J96.00 Acute respiratory failure, unspecified whether with hypoxia or hypercapnia; I11.0 Hypertensive heart disease with heart failure; I50.41 Acute combined systolic (congestive) and diastolic (congestive) heart failure; N17.9 Acute kidney failure, unspecified; I48.91 Unspecified atrial fibrillation; F41.9 Anxiety disorder, unspecified; K21.9 Gastro-esophageal reflux disease without esophagitis; E78.00 Pure hypercholesterolemia, unspecified; R09.02 Hypoxemia; I25.10 Atherosclerotic heart disease of native coronary artery without angina pectoris; I87.2 Venous insufficiency (chronic) (peripheral); Z87.19 Personal history of other diseases of the digestive system; Z87.891 Personal history of nicotine dependence
CPT/HCPCS: 36415; 36600; 70450; 71045; 80053; 80202; 81000; 82805; 83605; 83735; 83880; 84100; 84484; 85007; 85025; 85027; 85610; 85730; 87040; 87088; 87631; 87804; 93005; 93306; 94640; 94660; 94760; 96361; 96374